=== PATIENT | male | born 1975 | race Caucasian/White ===

== ENCOUNTER 2019-05-08 13:26 | Emergency (ER) | payer SELFPAY ==
[2019-05-08 13:35] VITALS: BP 124/79; PULSE 130; RESP 18; TEMP 37.2; O2SAT 99; BMI 24.1
--- NOTE | 2019-05-08 13:43 | ED_ITS ---
HPI - Abdominal Pain General: Chief Complaint: Abdominal Pain Stated Complaint: Abd pain Time Seen by Provider: 05/08/19 13:35 History of Present Illness: HPI narrative: Patient is a 44-year-old male who comes into the ED with abdominal pain. Patient has a past medical history of hiatal hernia and kidney stones. The abdominal pain started about 2 to 3 days ago. He has not had a bowel movement since May 03. He has bought mdiq-rni-qurjuab magnesium citrate and taken 2 bottles of that and has not had any bowel movements. Currently he feels very full knee and tender in the upper abdomen. Says it is hard for him to eat or drink anything because he does not feel like it goes all the way down. Denies any nausea or vomiting. The abdominal pain does wrap around into the lower to mid back. He also says he has not urinated much in the last couple days as well and his urine is darker and more concentrated. Patient does not take any reflux medication. Associated Symptoms: Reports belching, bloating, change in bowel habits (Has not went since May 03. ) and constipation; Denies chills, diarrhea, dysuria, fever(s), hematochezia, hematuria, nausea and vomiting Review of Systems Const: Denies: fever, chills or fatigue Eyes: Denies: change in vision or eye discomfort ENMT: Denies: throat pain, painful swallowing, nasal discharge or nasal congestion Card: Denies: chest pain, palpitations, edema, swelling of feet/ankles, shortness of breath on exertion or shortness of breath when lying down Resp: Denies: shortness of breath, productive cough or non-productive cough GI: Reports: abdominal pain, constipation, bloating, belching and change in bowel habits (Has not went since May 03. ); Denies: nausea, vomiting, diarrhea or blood in stool : Denies: flank pain, difficulty urinating, painful urination or blood in urine Musc: Denies: neck pain, back pain or extremity swelling Skin/Breast: Denies: rash or new lesion Neuro: Denies: headache, numbness in extremities or weakness in extremities PFS ED PFSH: Social History Smoking and tobacco status: never smoked Physical Exam Const: COMMON NORMALS: oriented x3 HENMT: COMMON NORMALS: normocephalic HEAD & SCALP: normocephalic MOUTH: oral and palatal mucosa normal THROAT: posterior oropharynx normal and uvula midline Neck/C-Spine: COMMON NORMALS: supple GENERAL: Yes normal visual inspection Resp: COMMON NORMALS: normal respiratory effort, no retractions, no use of accessory muscles and clear to auscultation bilaterally AUSCULTATION: clear to auscultation bilaterally Cardio: COMMON NORMALS: regular rate, regular rhythm, S1 normal heart sound, S2 normal heart sound, no gallops, no clicks, no murmurs and peripheral pulses 2+ throughout RATE: regular rate RHYTHM: regular rhythm HEART SOUNDS: S1 normal and S2 normal PERIPHERAL PULSES: pulses 2+ throughout GI: COMMON NORMALS: normal to inspection, nondistended, normoactive bowel sounds, soft to palpation and no masses PALPATION: Yes soft, Yes tender Details: other (throughout abdomen) and Yes guarding PERCUSSION: dullness to percussion (RUQ and LUQ) : COMMON NORMALS: Yes no CVA tenderness BLADDER/KIDNEY EXAM: Yes no CVA tenderness Back/Pelvis: COMMON NORMALS: no CVA tenderness Extremity: COMMON NORMALS: normal to inspection and normal capillary refill Neuro: COMMON NORMALS: oriented x3 GAIT: Yes normal gait Skin: COMMON NORMALS: no rashes or lesions noted GENERAL SKIN EXAM: no rashes or lesions noted and dry skin Course Consultations: Consultation #1: I talked with [facility] hospitalist Dr. Barr about transferring patient to [facility]. The hospitalist agreed and accepted patient and told me that general surgery will be brought into evaluate patient for possible surgery. Hospitalist told me to start patient on IV heparin. Vital Signs: Vital signs: Vital Signs Temperature 98.9 F 05/08/19 13:35 Pulse Rate 62 05/08/19 17:50 Respiratory Rate 17 05/08/19 17:50 Blood Pressure 140/90 05/08/19 17:50 Pulse Oximetry 99 05/08/19 17:50 MDM - Abdominal Pain MDM Narrative: Medical decision making narrative: Patient is a 44-year-old male who comes into the ED with abdominal pain. Physical exam showed a distended and tender abdomen throughout all 4 quadrants. CBC was remarkable for an elevated white blood cell count of 14.3. Patient was also tachycardic at 130 bpm on arrival here into the ED. CT of the abdomen pelvis was performed and it showed acute thrombosis involving the portal vein and superior mesenteric vein and distal mesenteric branches. Early ischemic changes seen. Extensive mesenteric stranding and congestion from the thrombosis and ischemic changes. I discussed this finding with Dr. Barnes and we decided he needs to be transferred to [facility] in [place]. I contacted the transfer center at [facility] and talked with hospitalist who accepted patient. Patient was started on IV heparin. Patient is stable and will be transferred to [facility]. Lab Data: Attestation: I reviewed the patient's lab results. Labs: Lab Results 05/08/19 05/08/19 05/08/19 Range/Units 13:44 13:44 13:44 WBC 14.3 H (4.0-10.0) 10^3/ uL RBC 4.77 (4.1-5.3) 10^6/u L Hgb 13.7 (11.7-16.6) g/dL Hct 42.3 (42.0-52.0) % MCV 88.7 (80-94) fL MCH 28.7 (28.0-34.0) pg MCHC 32.4 (30.0-36.0) g/dL RDW 14.8 (12.1-15.1) % Plt Count 447 H (130-400) 10^3/c mm MPV 10.1 (7.4-10.4) fL Neut % (Auto) 71.3 % Lymph % (Auto) 18.8 % Rosebud % (Auto) 7.6 % Eos % (Auto) 1.5 % Baso % (Auto) 0.2 % Neut # (Auto) 10.2 H (1.8-7.7) 10^3/u L Lymph # (Auto) 2.7 (0.8-4.8) 10^3/u L Rosebud # (Auto) 1.1 H (0.2-0.9) 10^3/u L Eos # (Auto) 0.2 (0.0-0.8) 10^3/u L Baso # (Auto) 0.0 (0.0-0.1) 10^3/u L Nucleated RBC % (a uto) 0 % Nucleated RBCs # 0.0 /100WBC Sodium 135 L (136-145) mmol/L Potassium 3.1 L (3.5-5.1) mmol/L Chloride 100 (98-107) mmol/L Carbon Dioxide 20 L (22-29) mmol/L Anion Gap 18.1 (5-19) BUN 8 (6-20) mg/dL Creatinine 0.9 (0.7-1.2) mg/dL GFR Calculation 92.1 (90-130) mL/min Glucose 127 H (65-115) mg/dL Calculated Osmolal ity 277 L (285-295) mOsm/k g Lactate 1.7 (0.5-2.2) mmol/L Calcium 9.2 (8.5-10.5) mg/dL Total Bilirubin 1.8 H (0.15-1.2) mg/dL AST 35 (0-40) U/L ALT 39 (0-41) U/L Alkaline Phosphata se 114 (40-130) IU/L Total Protein 8.1 (6.6-8.7) g/dL Albumin 3.9 (3.5-5.2) g/dL Globulin 4.2 (1.3-4.6) g/dL Lipase 270 H (13-60) U/L Urine Color (Yellow) Urine Appearance (CLEAR) Urine pH (5-7) Ur Specific Gravit y (1.005-1.030) Urine Protein (Negative) Urine Glucose (UA) (Normal) Urine Ketones (Negative) Urine Blood (Negative) Urine Nitrate (Negative) Urine Bilirubin (NEGATIVE) Urine Urobilinogen (Negative) mg/dL Ur Leukocyte Elizabeth ase (Negative) Urine RBC (0-2) /hpf Urine WBC (0-5) /hpf Ur Squamous Epith Cells (0-5) Urine Bacteria (NONE) 05/08/19 Range/Units 13:49 WBC (4.0-10.0) 10^3/ uL RBC (4.1-5.3) 10^6/u L Hgb (11.7-16.6) g/dL Hct (42.0-52.0) % MCV (80-94) fL MCH (28.0-34.0) pg MCHC (30.0-36.0) g/dL RDW (12.1-15.1) % Plt Count (130-400) 10^3/c mm MPV (7.4-10.4) fL Neut % (Auto) % Lymph % (Auto) % Rosebud % (Auto) % Eos % (Auto) % Baso % (Auto) % Neut # (Auto) (1.8-7.7) 10^3/u L Lymph # (Auto) (0.8-4.8) 10^3/u L Rosebud # (Auto) (0.2-0.9) 10^3/u L Eos # (Auto) (0.0-0.8) 10^3/u L Baso # (Auto) (0.0-0.1) 10^3/u L Nucleated RBC % (a uto) % Nucleated RBCs # /100WBC Sodium (136-145) mmol/L Potassium (3.5-5.1) mmol/L Chloride (98-107) mmol/L Carbon Dioxide (22-29) mmol/L Anion Gap (5-19) BUN (6-20) mg/dL Creatinine (0.7-1.2) mg/dL GFR Calculation (90-130) mL/min Glucose (65-115) mg/dL Calculated Osmolal ity (285-295) mOsm/k g Lactate (0.5-2.2) mmol/L Calcium (8.5-10.5) mg/dL Total Bilirubin (0.15-1.2) mg/dL AST (0-40) U/L ALT (0-41) U/L Alkaline Phosphata se (40-130) IU/L Total Protein (6.6-8.7) g/dL Albumin (3.5-5.2) g/dL Globulin (1.3-4.6) g/dL Lipase (13-60) U/L Urine Color Claire (Yellow) Urine Appearance Clear (CLEAR) Urine pH 5 (5-7) Ur Specific Gravit y 1.010 (1.005-1.030) Urine Protein 1+ H (Negative) Urine Glucose (UA) Norm (Normal) Urine Ketones 1+ H (Negative) Urine Blood Trace H (Negative) Urine Nitrate Positive H (Negative) Urine Bilirubin 1+ H (NEGATIVE) Urine Urobilinogen 1 H (Negative) mg/dL Ur Leukocyte Elizabeth ase Negative (Negative) Urine RBC 0-4 H (0-2) /hpf Urine WBC 5-10 H (0-5) /hpf Ur Squamous Epith Cells 5-10 H (0-5) Urine Bacteria 1+ H (NONE) Imaging Data ^: CT Abd/Pel: Attestation: I personally reviewed and interpreted this imaging study as follows: Radiologist's impression: [facility] [address] [address] [address] Scan Report Signed Patient: Devaughn Elkins Unit #: [id number] : 1975 Age/Sex: 44 / M ADM Date: 05/08/19 Loc: ER Room/Bed: Attending Dr: Ordering Provider/Ordering MD: Silvano Balderas Date of Service: 05/08/19 Procedure(s): CT abdomen pelvis w con* [id number] Accession Number(s): [id number] Report Number: [id number] WS: [id number] CT ABDOMEN AND PELVIS WITH CONTRAST HISTORY: Diffuse abdominal pain for 3 days. Radiating to the RIGHT flank. TECHNIQUE: Imaging performed of the abdomen and pelvis with IV contrast. Single phase imaging of the abdomen. Coronal and sagittal reformats are submitted. All CT scans at [facility] use at least one of these dose optimization techniques: automated exposure control; mA and/or kV adjustment per patient size (includes targeted exams where dose is matched to clinical indication); or iterative reconstruction. IV CONTRAST: Omnipaque 300; 95 mL IV. Oral contrast: No DLP: 960.54 mGy.cm COMPARISON: None available. Lower thorax: Lung bases are clear. Partial atelectasis along the inferior LEFT major fissure. Heart is normal size. Small hiatal hernia. Liver/biliary system: Diffuse hepatic steatosis with liver being top normal size. No mass or bile duct dilatation. There is increased soft tissue in the portal vein which extends to the superior mesenteric vein. Gallbladder: Normal. No gallstones or wall thickening. No pericholecystic fluid. Pancreas: Normal. Spleen: Normal. Adrenal glands: Normal. Right kidney: Normal. Left kidney: Cortical cyst measuring 1.5 cm mid pole. There is a smaller low- attenuation nodule in the mid kidney which is too small to characterize. Aorta: Normal. Lymphadenopathy: None. Free fluid: There is mesenteric edema and stranding beginning at the level of the pancreas and extending inferiorly surrounding the superior mesenteric artery and vein. Small amount of fluid along the anterior pararenal fascia. GI tract: No evidence for appendicitis. There is extensive diverticulitis in the descending and sigmoid colon. Normal appendix. There is mild thickening of the small bowel loops, greatest in the LEFT abdomen. Prominent vasa recta. No perforation at this time. Abdominal wall: Unremarkable abdominal wall. No hernia. Pelvis: Normal. Bones: Unremarkable. Notified ELIZABETH Samuels at 05/08/2019 3:[address]/CT abdomen pelvis w con* [id number] IMPRESSION: 1. Acute thrombosis involving the portal vein, superior mesenteric vein and distal mesenteric branches. Early ischemic changes in the LEFT small bowel. No perforation. 2. Extensive mesenteric stranding and congestion from the thrombosis and ischemic changes. 3. Hepatic steatosis. 4. Distal colonic diverticulosis. No acute diverticulitis. Dictated By: Elisa Pastrana DO Signed By: Elisa Pastrana DO Signed Date/Time: 1506 DD/ 1441 Discharge Plan Discharge Patient Disposition: Xfer Other Clinical Impression: Portal vein thrombosis, Superior mesenteric vein thrombosis, Small bowel ischemia Condition: Stable Referrals: Silvano Alas DO [Family Provider] - Discharge Date/Time: 05/08/19 18:18 Coding Level of Care Code ED Staff Writer for Chg Fwd Exam Comprehensive
[2019-05-08 13:56] LABS: Basophils % 0.2 %; Eosinophils # 0.2 10^3/uL (0.0-0.8); Eosinophils % 1.5 %; Hematocrit 42.3 % (42.0-52.0); Hemoglobin 13.7 g/dL (11.7-16.6); Lymphocytes # 2.7 10^3/uL (0.8-4.8); Lymphocytes % 18.8 %; Mean Corpuscular HGB Conc 32.4 g/dL (30.0-36.0); Mean Corpuscular Hemoglobin 28.7 pg (28.0-34.0); Mean Corpuscular Volume 88.7 fL (80-94); Mean Platelet Volume 10.1 fL (7.4-10.4); Monocytes # 1.1 10^3/uL (0.2-0.9); Monocytes % 7.6 %; Neutrophils # 10.2 10^3/uL (1.8-7.7); Neutrophils % 71.3 %; Nucleated Red Blood Cells % 0 %; Platelet Count 447 10^3/cmm (130-400); Red Blood Count 4.77 10^6/uL (4.1-5.3); Red Cell Distribution Width 14.8 % (12.1-15.1); White Blood Count 14.3 10^3/uL (4.0-10.0)
--- NOTE | 2019-05-08 14:00 | CT_ITS ---
WS: [id number] CT ABDOMEN AND PELVIS WITH CONTRAST HISTORY: Diffuse abdominal pain for 3 days. Radiating to the RIGHT flank. TECHNIQUE: Imaging performed of the abdomen and pelvis with IV contrast. Single phase imaging of the abdomen. Coronal and sagittal reformats are submitted. All CT scans at [facility] use at least one of these dose optimization techniques: automated exposure control; mA and/or kV adjustment per patient size (includes targeted exams where dose is matched to clinical indication); or iterativ e reconstruction. IV CONTRAST: Omnipaque 300; 95 mL IV. Oral contrast: No DLP: 960.54 mGy.cm COMPARISON: None available. Lower thorax: Lung bases are clear. Partial atelectasis along the inferior LEFT major fissure. Heart is normal size. Small hiatal hernia. Liver/biliary system: Diffuse hepatic steatosis with liver being top normal size. No mass or bile hari t dilatation. There is increased soft tissue in the portal vein which extends to the superior mesente lucas vein. Gallbladder: Normal. No gallstones or wall thickening. No pericholecystic fluid. Pancreas: Normal. Spleen: Normal. Adrenal glands: Normal. Right kidney: Normal. Left kidney: Cortical cyst measuring 1.5 cm mid pole. There is a smaller low-attenuation nodule in th e mid kidney which is too small to characterize. Aorta: Normal. Lymphadenopathy: None. Free fluid: There is mesenteric edema and stranding beginning at the level of the pancreas and extend ing inferiorly surrounding the superior mesenteric artery and vein. Small amount of fluid along the a nterior pararenal fascia. GI tract: No evidence for appendicitis. There is extensive diverticulitis in the descending and sigmo id colon. Normal appendix. There is mild thickening of the small bowel loops, greatest in the LEFT ab domen. Prominent vasa recta. No perforation at this time. Abdominal wall: Unremarkable abdominal wall. No hernia. Pelvis: Normal. Bones: Unremarkable. Notified ELIZABETH Samuels at 05/08/2019 3:[address]/CT abdomen pelvis w con* [id number] IMPRESSION: 1. Acute thrombosis involving the portal vein, superior mesenteric vein and di stal mesenteric branches. Early ischemic changes in the LEFT small bowel. No pe rforation. 2. Extensive mesenteric stranding and congestion from the thrombosis and ische jameel changes. 3. Hepatic steatosis. 4. Distal colonic diverticulosis. No acute diverticulitis.
[2019-05-08 14:14] LABS: Alanine Aminotransferase 39 U/L (0-41); Albumin Level 3.9 g/dL (3.5-5.2); Alkaline Phosphatase 114 IU/L (40-130); Anion Gap 18.1 (5-19); Aspartate Amino Transferase 35 U/L (0-40); Blood Urea Nitrogen 8 mg/dL (6-20); Calcium 9.2 mg/dL (8.5-10.5); Carbon Dioxide 20 mmol/L (22-29); Chloride 100 mmol/L (98-107); Globulin 4.2 g/dL (1.3-4.6); Glomerular Filtration Rate 92.1 mL/min (90-130); Glucose 127 mg/dL (65-115); Lipase 270 U/L (13-60); Osmolality Calculated 277 mOsm/kg (285-295); Potassium 3.1 mmol/L (3.5-5.1); Sodium 135 mmol/L (136-145); Total Bilirubin 1.8 mg/dL (0.15-1.2); Total Protein 8.1 g/dL (6.6-8.7)
[2019-05-08 14:17] LABS: Urine Appearance Clear (CLEAR); Urine Color Amber (Yellow); pH Urine 5 (5-7)
[2019-05-08 14:18] LABS: Bilirubin Urine 1+ (NEGATIVE); Blood Urine Trace (Negative); Glucose Urine UA Norm (Normal); Ketones Urine 1+ (Negative); Leukocyte Esterase Urine Negative (Negative); Nitrate Urine Positive (Negative); Protein Urine 1+ (Negative); Urobilinogen Urine 1 mg/dL (Negative)
[2019-05-08 14:19] LABS: Add Urine Culture? Yes; Bacteria Urine 1+; RBC Urine 0-4 /hpf (0-2)
[2019-05-08 14:26] VITALS: RESP 17; O2SAT 97
[2019-05-08] MEDS: morphine 4 mg/mL SDV 1 mL IVP ×2 (14:26→16:15)
[2019-05-08] MEDS: ondansetron 2 mg/ML SDV 2 mL 4 MG IVP (14:26)
[2019-05-08] MEDS: iohexol 300 mg/mL 100 mL Btl IV (14:32)
[2019-05-08] MEDS: sodium chloride 0.9% 1,000 ML 999 ML IV (15:12)
[2019-05-08 15:26] LABS: Lactate (Lactic Acid level) 1.7 mmol/L (0.5-2.2)
[2019-05-08] MEDS: heparin 5,000 unit/mL INJ 1 mL 5000 UNIT IV (15:44)
[2019-05-08 16:15] VITALS: RESP 17; O2SAT 99
[2019-05-08] MEDS: heparin drip 25,000 UNIT/500 ML PREMIX 23.2 UNIT IV (16:15)
[2019-05-08 17:38] VITALS: RESP 18; O2SAT 98
[2019-05-08] MEDS: HYDROmorphone 1 mg/mL INJ 1 mL IVP (17:38)
[2019-05-08 17:50] VITALS: BP 140/90; PULSE 62; RESP 17; O2SAT 99
== END 2019-05-08 18:18 | disposition other institution (70) ==
PROVIDERS: Emergency Medicine; Emergency Provider Physician Assistant
DX: I81 Portal vein thrombosis (principal); K55.069 Acute infarction of intestine, part and extent unspecified; K55.9 Vascular disorder of intestine, unspecified
CPT/HCPCS: 12345; 36415; 74177; 80053; 81001; 83605; 83690; 85025; 87086; 96365; 96366; 96374; 96375; 96376; 99282; 99285; J1170; J1644; J2270; J2405; J7030; Q9967

== ENCOUNTER 2019-06-04 14:31 | Outpatient (CLI) | payer SELFPAY ==
--- NOTE | 2019-06-04 19:31 | ONC CON_ITS ---
Dr. Gonzales New Patient Note Patient: Devaughn Elkins Unit #: [id number]: 1975 Dicatated By: Evert Gonzales M.D.Date of Visit: Jun 04, 2019 Onc MED New Patient/Consult Referring Physician: Melinda Aparicio Chief Complaint: Portal vein thrombosis. History of Present Illness: This is a 44 year-old man with portal vein thrombosis. On 05/08/2019 he presented to the emergency room with abdominal pain. The ER record indicates it had started 2 to 3 days earlier, but he says now that he had been having it for several months. However, it had gotten significantly worse. He also had developed nausea/vomiting and constipation, and he says that he was urinating blood. His CT abdomen/pelvis showed findings consistent with acute thrombosis involving the portal vein, superior mesenteric vein, and distal mesenteric branches. There were early ischemic changes noted in the left small bowel. There was extensive stranding and congestion from the thrombus and ischemic changes. There is also evidence of hepatic steatosis. His laboratory studies showed mildly elevated total bilirubin but normal liver enzymes. The lipase was also mildly elevated. His CBC did show mild leukocytosis, white blood cell count 14,300, and mild thrombocytosis, platelet count 447,000. Hemoglobin was normal at 13.7 g with hematocrit 42.3%. He was transferred to [facility] for admission. He indicates that his MRI done there showed spots in his gallbladder and pancreas. He was initially anticoagulated with IV heparin and then transition to Lovenox and subsequently to a apixaban. At this point he continues to have some abdominal pain, though not as severe. He says he is able to eat now. His weight has remained stable. He does have fatigue, but he is able to do light work. His ECOG score is 1. He has not had fever. He has been having some night sweating for the past 2 to 3 months. He has shortness of breath, and he has cough productive of yellow to green sputum. He has a little bit of chest pain. He has nausea, which comes and goes. He has been having some acid reflux symptoms for years. His bowel function is variable. His stools fluctuate between solid, formed stools and watery stools. He has noted some white mucus on his stool. He still has some pain in the epigastric area and in the right lower quadrant area. He has no complaints with bladder function. He also still has pain across his lower back. He has occasional migraines. He has some orthostatic lightheadedness. During the past week he has noticed that he has no feeling in his right leg. He has no difficulty ambulating, though. He has no other focal neurologic symptoms. Past Medical History: His medical history includes hiatal hernia, nephrolithiasis, and peptic ulcer disease. Past Surgical History: His surgical/procedural history is limited to an EGD at age 15. Medications: Acetaminophen 1 Tablet (of 500 mg) Oral PRN, Eliquis 1 Tablet (of 5 mg) Oral b.i.d. Allergies: Social History: Mr. Elkins is . 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 He began chewing twist tobacco at age 7 and then switched to regular chewing tobacco at age 15. He chews a can per day. He does not smoke. He had heavy alcohol use for a period of 4 to 5 years, beginning at age 19. He then cut down. Recurrently drinks 1/2 pint of whiskey per weekend. Family History: Mr. Elkins's father at age 78: Colon cancer. Mr. Elkins has 1 brother who is alive: pancreas cancer. His mother is still living and in good health. Father of colon cancer at age 78. A maternal aunt had gallbladder cancer, had his maternal grandmother had breast cancer. His paternal grandmother had diabetes. He thinks his brother has been diagnosed with pancreatic cancer, but that appears to be unlikely. Review Of Symptoms: Constitutional - His energy level is low. He does some light work in and around the house. His appetite is poor and weight is stable. No fever or chills. He has night sweats. 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 He has some visual blurring, ENMT - He has some hearing loss. No tinnitus. He has sinus drainage. No mouth sores. No sore throat or difficulty swallowing, Hematologic/Lymphatic - No abnormal bruising or bleeding, Respiratory - No shortness of breath. He has a cough that produces yellowish phlegm. No pleuritic pain or hemoptysis, Cardiovascular - No angina pain. No palpitations, Gastrointestinal - No nausea or vomiting. He has heartburn. His bowels are irregular, and he reports having a white mucus with bowel movements. No blood in the stool or black stools. He is pain in the epigastric area and in the lower abdomen, Genitourinary (M) - No dysuria or hematuria. No urinary frequency. No urgency or incontinence, Musculoskeletal - He has pain across his lower back, Integumentary - No skin complications, Neurologic - He has headaches. He gets some dizziness with positional changes. He has numbness in his right lower leg, Psychiatric - No anxiety or depression. He has insomnia. Vital Signs: Performed on Jun 04, 2019 14:49: 0, 28.17, 2.12 sq.m, 71.00 in, 99 %, 113 /min (HIGH), 22 /min, 118/84 mm(hg), 98.4 F, and 202.0 lbs (HIGH). Physical Examination: Constitutional - He does not appear acutely ill, Eyes - Sclerae nonicteric. Conjunctivae clear, ENMT - No lesions noted in the oral cavity, Neck - No mass or thyromegaly, Hematologic/Lymphatic - No cervical, clavicular, or axillary adenopathy, Respiratory - Lungs are clear with good air movement bilaterally, Cardiovascular - Heart rhythm is regular with a mild tachycardia. There is no murmur, gallop, or rub noted, Abdomen - Mildly distended and firm. Liver is not enlarged or tender. Spleen is not palpable. There is no abdominal mass noted and there is no obvious ascites. There is no inguinal adenopathy, Back/Spine - No spine or CVA tenderness noted, Extremities - No edema. Pedal pulses are palpable bilaterally, Integumentary - No rashes. No suspicious skin lesions noted, Neurologic - No focal neurologic deficits noted. Impression: 1. Patient with acute portal vein thrombosis. The underlying cause has not been determined. His CT reported evidence of hepatic steatosis, but no other abnormal findings in the liver. His evaluation for hypercoagulability was reportedly unrevealing. 2. He is on anticoagulation with apixaban. His other medical illnesses include: 3. Hiatal hernia and history of peptic ulcer disease. 4. History of nephrolithiasis. Plan: He will continue anticoagulation with apixaban. At some point he will require additional evaluation to rule out underlying malignancy or other underlying liver disease. Other underlying conditions to consider would be PNH or a myeloproliferative disorder, though either would be unlikely. I will first obtain the records from [facility] and then determine what further evaluation is appropriate. In the meantime, he is advised to avoid any further alcohol intake. Signed By: Evert Gonzales M.D. <<Signature on File>>
== END 2019-06-04 14:32 | disposition home or self-care (01) ==
PROVIDERS: Referring Provider Nurse Practitioner Family; Visit Provider Internal Medicine Medical Oncology
DX: I81 Portal vein thrombosis (principal); K76.0 Fatty (change of) liver, not elsewhere classified; K44.9 Diaphragmatic hernia without obstruction or gangrene; F17.220 Nicotine dependence, chewing tobacco, uncomplicated; Z79.01 Long term (current) use of anticoagulants; Z87.11 Personal history of peptic ulcer disease; Z87.442 Personal history of urinary calculi; Z72.89 Other problems related to lifestyle
CPT/HCPCS: 99205

== ENCOUNTER 2019-06-11 19:35 | Emergency (ER) | payer SELFPAY ==
[2019-06-11 19:43] VITALS: BP 127/87; PULSE 118; RESP 18; TEMP 35.8; O2SAT 98; BMI 26.7
[2019-06-11 20:41] LABS: Basophils % 0.4 %; Eosinophils # 0.3 10^3/uL (0.0-0.8); Eosinophils % 4.7 %; Hematocrit 41.6 % (42.0-52.0); Hemoglobin 13.3 g/dL (11.7-16.6); Lymphocytes # 2.8 10^3/uL (0.8-4.8); Mean Corpuscular Volume 90.8 fL (80-94); Mean Platelet Volume 9.6 fL (7.4-10.4); Monocytes # 0.7 10^3/uL (0.2-0.9); Monocytes % 10.3 %; Neutrophils # 3.3 10^3/uL (1.8-7.7); Neutrophils % 45.5 %; Nucleated Red Blood Cells % 0 %; Platelet Count 352 10^3/cmm (130-400); Red Blood Count 4.58 10^6/uL (4.1-5.3); Red Cell Distribution Width 15.7 % (12.1-15.1); White Blood Count 7.2 10^3/uL (4.0-10.0)
[2019-06-11 20:57] LABS: Alanine Aminotransferase 77 U/L (0-41); Albumin Level 4.3 g/dL (3.5-5.2); Alkaline Phosphatase 112 IU/L (40-130); Anion Gap 17.4 (5-19); Aspartate Amino Transferase 65 U/L (0-40); Blood Urea Nitrogen 7 mg/dL (6-20); Calcium 8.9 mg/dL (8.5-10.5); Carbon Dioxide 23 mmol/L (22-29); Chloride 105 mmol/L (98-107); Globulin 3.3 g/dL (1.3-4.6); Glomerular Filtration Rate 73.1 mL/min (90-130); Glucose 109 mg/dL (65-115); Lipase 220 U/L (13-60); Magnesium 2.2 mg/dL (1.7-2.3); Osmolality Calculated 290 mOsm/kg (285-295); Potassium 3.4 mmol/L (3.5-5.1); Sodium 142 mmol/L (136-145); Total Bilirubin 0.6 mg/dL (0.15-1.2); Total Protein 7.6 g/dL (6.6-8.7)
--- NOTE | 2019-06-11 21:03 | CTR_ITS ---
PROCEDURE INFORMATION: Exam: CT Abdomen And Pelvis With Contrast Exam date and time: 06/11/2019 9:49 PM Age: 44 years old Clinical indication: Constipation; Abdominal pain; Additional info: Abd pain. Recent portal vein thrombosis TECHNIQUE: Imaging protocol: Computed tomography of the abdomen and pelvis with intravenous contrast. Radiation optimization: All CT scans at this facility use at least one of these dose optimization techniques: automated exposure control; mA and/or kV adjustment per patient size (includes targeted exams where dose is matched to clinical indication); or iterative reconstruction. Contrast material: OMNI 300; Contrast volume: 95 ml; Contrast route: IV; COMPARISON: CT abdomen pelvis w con* [id number] 05/26/2019 1:05 AM RADIATION DOSE METRICS: Total DLP: 923.98 mGy-cm FINDINGS: Lungs: There is subpleural atelectasis of the dependent portions of the lungs. Mediastinum: A small hiatal hernia is present. Liver: There is a diffuse decrease in hepatic parenchymal density, consistent with fatty infiltration. Gallbladder and bile ducts: Normal. No calcified stones. No ductal dilation. Pancreas: Pancreas is unchanged in appearance. There is improved mild haziness of the fat adjacent to the pancreas . Spleen: Normal. No splenomegaly. Adrenals: Normal. No mass. Kidneys and ureters: There are multiple renal hypodensities that cannot be further characterized on the current examination. There is no evidence of hydronephrosis. There is punctate nephrolithiasis. There is a unchanged 1.4 cm simple cyst in the left kidney. Stomach and bowel: The loops of small bowel have an appropriate appearance. Ascending and transverse colon have an appropriate appearance. Extensive diverticulosis is present in the distal colon. There is wall thickening with haziness of the fat involving the sigmoid colon compatible with mildly improved distal diverticulitis/colitis. Appendix: A normal appendix is identified. Intraperitoneal space: Unremarkable. No free air. No significant fluid collection. Vasculature: There is thrombus in the portal vein and superior mesenteric vein which is decreased in size and length compared to the prior study. No new thrombosis. The splenic vein is widely patent. This may reflect resolving reactive edema and venous congestion from the portal vein thrombosis or improving pancreatitis. Lymph nodes: There is mild induration of the mesenteric fat with a few subcentimeter lymph nodes which has improved slightly compared to the prior exam. Bladder: The bladder wall appears mildly thickened however the bladder is also almost completely collapsed in the appearance is compatible with lack distension. Reproductive: Unremarkable as visualized. Bones/joints: Unremarkable. No acute fracture. Soft tissues: There is a small fat filled left inguinal hernia. There is a fat-containing umbilical hernia. Other findings: No ileus or obstruction. CT/CT abdomen pelvis w con* [id number] IMPRESSION: 1. Continued but improving portal vein thrombosis and improving edema of the mesentery. 2. There is a unchanged 1.4 cm simple cyst in the left kidney. 3. There is improved mild haziness of the fat adjacent to the pancreas . This may reflect resolving reactive edema and venous congestion from the portal vein thrombosis or improving pancreatitis. 4. There is wall thickening of the sigmoid colon with haziness of the adjacent fat compatible with mild colitis/diverticulitis slightly improved compared to the prior exam. Radiation Dose CTDIVOL = (mGy): DLP = 923.98 (mGy-cm)
[2019-06-11] MEDS: ondansetron 2 mg/ML SDV 2 mL 4 MG IVP (21:29)
[2019-06-11 21:30] VITALS: RESP 16
[2019-06-11] MEDS: morphine 4 mg/mL SDV 1 mL 10 MG IVP (21:30)
[2019-06-11] MEDS: iohexol 300 mg/mL 100 mL Btl IV (22:17)
[2019-06-11 22:25] LABS: Bilirubin Urine Neg (NEGATIVE); Blood Urine Neg (Negative); Glucose Urine UA Norm (Normal); Ketones Urine Negative (Negative); Leukocyte Esterase Urine Negative (Negative); Nitrate Urine Negative (Negative); Protein Urine Neg (Negative); Specific Gravity, Urine 1.015 (1.005-1.030); Urine Appearance Clear (CLEAR); Urine Color Yellow (Yellow); Urobilinogen Urine Norm (Negative); pH Urine 6 (5-7)
[2019-06-11 22:26] LABS: Bacteria Urine TRACE; RBC Urine RARE /hpf (0-2); Squamous Epithelial Cell Urine RARE (0-5); WBC Urine RARE /hpf (0-5)
[2019-06-11 23:09] VITALS: RESP 16; O2SAT 96
[2019-06-11] MEDS: HYDROmorphone 1 mg/mL INJ 1 mL IVP (23:09)
--- NOTE | 2019-06-11 23:49 | W.ED.GENADLT ---
HPI - General Adult General: Chief complaint: General Medical Stated complaint: upper abd pain, lower back pain, r side pain Time Seen by Provider: 06/11/19 20:38 Source: patient Mode of arrival: ambulatory Limitations: no limitations History of Present Illness: HPI narrative: This 44-year-old gentleman was recently diagnosed with portal vein thrombosis and a new malignancy. He is currently being worked up for the malignancy and is scheduled to see the oncologist in a few days. Since his diagnosis he has had epigastric abdominal pain radiating to his back and he said that tonight it is worsening. No nausea vomiting. No diarrhea. No fever. He would like some pain medication. Associated symptoms: Reports chest pain; Deny dyspnea, headache(s), rash or palpitations Review of Systems General: Reports: 10 or more systems reviewed and unremarkable except in HPI and below Const: Denies: fever, chills or body aches Eyes: Denies: change in vision or blurry vision ENMT: Denies: throat pain, enlarged tonsils, painful swallowing, hoarseness, mouth pain or swelling of lips/tongue Card: Reports: chest pain; Denies: palpitations, irregular heart rhythm, edema or swelling of feet/ankles Resp: Denies: shortness of breath, productive cough or non-productive cough GI: Reports: abdominal pain : Denies: flank pain, painful urination, urinary frequency, urinary urgency or urinary hesitancy Musc: Denies: neck pain, back pain or extremity swelling Skin/Breast: Denies: rash, itching or redness Neuro: Denies: headache, numbness in extremities or weakness in extremities Endo: Denies: excessive urination, excessive thirst or tired all the time PFS ED PFSH: Social History Smoking and tobacco status: never smoked Physical Exam Const: COMMON NORMALS: no apparent distress, average body habitus, oriented x3, no limitations, healthy appearing, alert and well nourished HENMT: COMMON NORMALS: normocephalic, head/scalp atraumatic and moist oral mucous membranes HEAD & SCALP: normocephalic and atraumatic Eye: COMMON NORMALS: PERRL, EOMs intact bilaterally, conjunctivae normal and no scleral icterus CONJUNCTIVA: Yes conjunctivae normal PUPIL: Yes PERRL Neck/C-Spine: COMMON NORMALS: full ROM, supple, no meningeal signs, no JVD and no carotid bruits Chest: COMMONS NORMALS: inspection of chest normal and palpation of chest normal Resp: COMMON NORMALS: normal respiratory effort, no retractions, no use of accessory muscles, clear to auscultation bilaterally and percussion normal AUSCULTATION: clear to auscultation bilaterally PERCUSSION: percussion normal Cardio: COMMON NORMALS: no JVD, regular rate, regular rhythm, S1 normal heart sound, S2 normal heart sound, no gallops, no clicks, no murmurs, no rub and peripheral pulses 2+ throughout RATE: regular rate RHYTHM: regular rhythm HEART SOUNDS: S1 normal and S2 normal PERIPHERAL PULSES: pulses 2+ throughout GI: COMMON NORMALS: normal to inspection, nondistended, normoactive bowel sounds, soft to palpation, non-tender, no hepatosplenomegaly, no masses and no bruits PALPATION: Yes soft, Yes tender (epigastric), No guarding, No rigid and Yes no hepatosplenomegaly : COMMON NORMALS: Yes no CVA tenderness BLADDER/KIDNEY EXAM: Yes no CVA tenderness Back/Pelvis: COMMON NORMALS: no CVA tenderness Extremity: COMMON NORMALS: normal to inspection, full ROM, normal capillary refill, no calf tenderness and no pedal edema Neuro: COMMON NORMALS: oriented x3 SENSORIUM/ORIENTATION: Yes alert MENINGEAL SIGNS: Yes no meningeal signs Skin: COMMON NORMALS: no rashes or lesions noted, no wounds, skin turgor normal, no jaundice, no petechiae and no mottling GENERAL SKIN EXAM: no rashes or lesions noted and turgor normal Course Reevaluation(s): Reevaluation #1: Pain is much improved and he says he is ready to be discharged home. We will discharge him home with a prescription of oral narcotics. He voiced understanding and he is in agreement with the plan. Time: 23:49 Vital Signs: Vital signs: Vital Signs Temperature 96.4 F L 06/11/19 19:43 Pulse Rate 118 H 06/11/19 19:43 Respiratory Rate 16 06/11/19 23:09 Blood Pressure 127/87 06/11/19 19:43 Pulse Oximetry 96 06/11/19 23:09 MDM - General Adult MDM Narrative: Medical decision making narrative: Patient with abdominal pain secondary to portal vein thrombosis. He was recently diagnosed with the same and is on apixaban anticoagulation. CT scan done today shows improvement of his portal vein thrombosis and other intra-abdominal findings. Since his CT scan findings are improving, along with no significant changes on his lab work he is discharged home as his pain was controlled with intravenous narcotic medications. He has no pain medicine at home and so a prescription for oral hydrocodone was done for the patient. He will follow-up with his primary care provider and the oncologist. Medical Records: Attestation: I reviewed the patient's medical records. Lab Data: Labs: Lab Results 06/11/19 06/11/19 06/11/19 Range/Units 20:32 20:32 22:10 WBC 7.2 (4.0-10.0) 10^3/ uL RBC 4.58 (4.1-5.3) 10^6/u L Hgb 13.3 (11.7-16.6) g/dL Hct 41.6 L (42.0-52.0) % MCV 90.8 (80-94) fL MCH 29.0 (28.0-34.0) pg MCHC 32.0 (30.0-36.0) g/dL RDW 15.7 H (12.1-15.1) % Plt Count 352 (130-400) 10^3/c mm MPV 9.6 (7.4-10.4) fL Neut % (Auto) 45.5 % Lymph % (Auto) 39.0 % Winkler % (Auto) 10.3 % Eos % (Auto) 4.7 % Baso % (Auto) 0.4 % Neut # (Auto) 3.3 (1.8-7.7) 10^3/u L Lymph # (Auto) 2.8 (0.8-4.8) 10^3/u L Winkler # (Auto) 0.7 (0.2-0.9) 10^3/u L Eos # (Auto) 0.3 (0.0-0.8) 10^3/u L Baso # (Auto) 0.0 (0.0-0.1) 10^3/u L Nucleated RBC % (a uto) 0 % Nucleated RBCs # 0.0 /100WBC Sodium 142 (136-145) mmol/L Potassium 3.4 L (3.5-5.1) mmol/L Chloride 105 (98-107) mmol/L Carbon Dioxide 23 (22-29) mmol/L Anion Gap 17.4 (5-19) BUN 7 (6-20) mg/dL Creatinine 1.1 (0.7-1.2) mg/dL GFR Calculation 73.1 L (90-130) mL/min Glucose 109 (65-115) mg/dL Calculated Osmolal ity 290 (285-295) mOsm/k g Calcium 8.9 (8.5-10.5) mg/dL Magnesium 2.2 (1.7-2.3) mg/dL Total Bilirubin 0.6 (0.15-1.2) mg/dL AST 65 H (0-40) U/L ALT 77 H (0-41) U/L Alkaline Phosphata se 112 (40-130) IU/L Total Protein 7.6 (6.6-8.7) g/dL Albumin 4.3 (3.5-5.2) g/dL Globulin 3.3 (1.3-4.6) g/dL Lipase 220 H (13-60) U/L Urine Color Yellow (Yellow) Urine Appearance Clear (CLEAR) Urine pH 6 (5-7) Ur Specific Gravit y 1.015 (1.005-1.030) Urine Protein Neg (Negative) Urine Glucose (UA) Norm (Normal) Urine Ketones Negative (Negative) Urine Blood Neg (Negative) Urine Nitrate Negative (Negative) Urine Bilirubin Neg (NEGATIVE) Urine Urobilinogen Norm (Negative) mg/dL Ur Leukocyte Elizabeth ase Negative (Negative) Urine RBC Rare (0-2) /hpf Urine WBC Rare (0-5) /hpf Ur Squamous Epith Cells Rare (0-5) Urine Bacteria Trace (NONE) Imaging Data^: CT Abd/Pel: Radiologist's impression: [address] [address] [address] Scan Report Signed Patient: Devaughn Elkins #: [id number] : 1975Acct#:[id number] Age/Sex: 44 / MADM Date: 06/11/19 Loc: ERRoom/Bed: Attending Dr: Ordering Provider/Ordering MD: Contreras Mcpherson MD, [facility] [place] Date of Service: 06/11/19 Procedure(s): CT abdomen pelvis w con* [id number] Accession Number(s): [id number] Report Number: [id number] PROCEDURE INFORMATION: Exam: CT Abdomen And Pelvis With Contrast Exam date and time: 06/11/2019 9:49 PM Age: 44 years old Clinical indication: Constipation; Abdominal pain; Additional info: Abd pain. Recent portal vein thrombosis TECHNIQUE: Imaging protocol: Computed tomography of the abdomen and pelvis with intravenous contrast. Radiation optimization: All CT scans at this facility use at least one of these dose optimization techniques: automated exposure control; mA and/or kV adjustment per patient size (includes targeted exams where dose is matched to clinical indication); or iterative reconstruction. Contrast material: OMNI 300; Contrast volume: 95 ml; Contrast route: IV; COMPARISON: CT abdomen pelvis w con* [id number] 05/26/2019 1:05 AM RADIATION DOSE METRICS: Total DLP: 923.98 mGy-cm FINDINGS: Lungs: There is subpleural atelectasis of the dependent portions of the lungs. Mediastinum: A small hiatal hernia is present. Liver: There is a diffuse decrease in hepatic parenchymal density, consistent with fatty infiltration. Gallbladder and bile ducts: Normal. No calcified stones. No ductal dilation. Pancreas: Pancreas is unchanged in appearance. There is improved mild haziness of the fat adjacent to the pancreas . Spleen: Normal. No splenomegaly. Adrenals: Normal. No mass. Kidneys and ureters: There are multiple renal hypodensities that cannot be further characterized on the current examination. There is no evidence of hydronephrosis. There is punctate nephrolithiasis. There is a unchanged 1.4 cm simple cyst in the left kidney. Stomach and bowel: The loops of small bowel have an appropriate appearance. Ascending and transverse colon have an appropriate appearance. Extensive diverticulosis is present in the distal colon. There is wall thickening with haziness of the fat involving the sigmoid colon compatible with mildly improved distal diverticulitis/colitis. Appendix: A normal appendix is identified. Intraperitoneal space: Unremarkable. No free air. No significant fluid collection. Vasculature: There is thrombus in the portal vein and superior mesenteric vein which is decreased in size and length compared to the prior study. No new thrombosis. The splenic vein is widely patent. This may reflect resolving reactive edema and venous congestion from the portal vein thrombosis or improving pancreatitis. Lymph nodes: There is mild induration of the mesenteric fat with a few subcentimeter lymph nodes which has improved slightly compared to the prior exam. Bladder: The bladder wall appears mildly thickened however the bladder is also almost completely collapsed in the appearance is compatible with lack distension. Reproductive: Unremarkable as visualized. Bones/joints: Unremarkable. No acute fracture. Soft tissues: There is a small fat filled left inguinal hernia. There is a fat-containing umbilical hernia. Other findings: No ileus or obstruction. CT/CT abdomen pelvis w con* [id number] IMPRESSION: 1. Continued but improving portal vein thrombosis and improving edema of the mesentery. 2. There is a unchanged 1.4 cm simple cyst in the left kidney. 3. There is improved mild haziness of the fat adjacent to the pancreas . This may reflect resolving reactive edema and venous congestion from the portal vein thrombosis or improving pancreatitis. 4. There is wall thickening of the sigmoid colon with haziness of the adjacent fat compatible with mild colitis/diverticulitis slightly improved compared to the prior exam. Radiation Dose CTDIVOL = (mGy): DLP = 923.98 (mGy-cm) Dictated By:Charu Foster Signed By:Mani Foster Date/Time:06/11/192238 DD/ 36 Discharge Plan Discharge Patient Disposition: Home, Self-Care Clinical Impression: Portal vein thrombosis Acute pancreatitis Qualifiers: Pancreatitis type: unspecified pancreatitis type Acute pancreatitis complication: no infection or necrosis Qualified Code(s): K85.90 - Acute pancreatitis without necrosis or infection, unspecified Condition: Stable Prescriptions: New oxycodone 5 mg tablet 5 mg PO Q4H PRN (Reason: pain, portal vein thrombosis, intra-abdominal malignancy) Qty: 20 RF: 0 Continued Eliquis 5 mg Tablet 5 mg PO BID RF: 0 Discharge Orders: Discharge Order (Routine); Ordered 06/11/19 Ordered By: Contreras Mcpherson Referrals: Sandra Lentz MD [Primary Care Provider] - 1-3 days Silvano Alas DO [Family Provider] - 4-7 days Patient Instructions: Pancreatitis (ED) Activity Restrictions/Additional Instructions: Return for any new or worsening symptoms. Continue to take your blood thinner as prescribed. Take the pain medication as needed every 4 hours. Follow-up with your primary care provider as soon as you can get in. Coding Level of Care Code ED Medical Laboratory Technologist for Kerwin Walls
[2019-06-12 00:04] VITALS: BP 115/82; PULSE 116; RESP 16; O2SAT 97
--- NOTE | 2019-06-12 00:09 | PC.NURSE ---
i agree with this assessment by Jass Reavesedic
== END 2019-06-12 00:09 | disposition home or self-care (01) ==
PROVIDERS: Emergency Medicine; Emergency Provider Family Medicine; PCP Family Medicine
DX: I81 Portal vein thrombosis (principal); K85.90 Acute pancreatitis without necrosis or infection, unspecified; Z79.01 Long term (current) use of anticoagulants
CPT/HCPCS: 12345; 74177; 80053; 81001; 83690; 83735; 85025; 96374; 96375; 99281; 99283; J1170; J2270; J2405; Q9967

== ENCOUNTER 2019-06-25 15:28 | Emergency (ER) | payer SELFPAY ==
[2019-06-25 15:35] VITALS: BP 166/96; PULSE 114; RESP 18; O2SAT 96; BMI 26.6
[2019-06-25] MEDS: diphenhydrAMINE 50 mg/mL SDV 1mL 25 MG IVP (15:50)
[2019-06-25 15:51] VITALS: PULSE 97; RESP 17; O2SAT 99
[2019-06-25 16:19] VITALS: BP 139/66; PULSE 88; RESP 16; O2SAT 94
--- NOTE | 2019-06-25 16:23 | ED_ITS ---
HPI - Allergic Reaction General: Chief complaint: Allergic Reaction Stated complaint: Poss allergic reaction Time Seen by Provider: 06/25/19 15:35 History of Present Illness: HPI narrative: Patient is a 44 year old male presenting after being stung 3 or 4 times but hornets. This happened at home about an hour ago and he says that he has had allergic reactions to yellow jackets in the past when he was stung 60 times. He also is allergic to cillins. He feels like it is hard to breath and he says that his told him he passed out three times while sitting on the couch at home and that he turned very red in the face. He took 25 mg f oral benadryl at home before coming in. He is currently being treated for multiple blood clots and is being worked up for cancer in his gallbladder and pancreas. He is on a blood thinner and creon. complaint: allergic reaction Onset (ago): hour(s) (1) Associated symptoms: Reports difficulty breathing, dizziness and nausea; Deny lip swelling Severity: moderate Treatment prior to arrival: benadryl Review of Systems General: Reports: 10 or more systems reviewed and unremarkable except in HPI and below Const: Denies: fever(s) or chills Card: Denies: chest pain Resp: Reports: dyspnea; Denies: wheezing GI: Reports: nausea Neuro: Reports: dizziness Arnav/Lymph: Denies: easy bruising or easy bleeding PFS ED PFSH: Social History Smoking and tobacco status: never smoked Physical Exam Const: COMMON NORMALS: no acute distress, average body habitus, patient oriented x3, no limitations, healthy appearing, alert and well nourished HENMT: COMMON NORMALS: normocephalic HEAD & SCALP: normocephalic HEAD IMAGES: 1. mild redness - patient indicates this is an area where he was stung FACE & SINUS: normal facial exam Eye: COMMON NORMALS: Equal, round and reactive pupils present and EOMs intact bilaterally GENERAL EYE: appearance normal, both eyes and all related structures PUPIL: Yes Equal, round and reactive pupils present Neck/C-Spine: COMMON NORMALS: no JVD Chest: COMMONS NORMALS: normal inspection of the chest Resp: COMMON NORMALS: normal respiratory effort, No use of accessory muscles and clear to auscultation bilaterally EFFORT & INSPECTION: Yes able to speak in complete sentences AUSCULTATION: clear to auscultation bilaterally Cardio: COMMON NORMALS: no JVD, regular rate, regular rhythm and No murmurs present (Cardio) RATE: regular rate RHYTHM: regular rhythm GI: COMMON NORMALS: Normal to inspection, nondistended, normoactive bowel sounds present and Soft to palpation PALPATION: Yes Soft to palpation Back/Pelvis: BACK IMAGE (MALE): 1. three stings in this area, mild redness Extremity: COMMON NORMALS: normal to inspection Neuro: COMMON NORMALS: patient oriented x3 SENSORIUM/ORIENTATION: Yes alert Course Reevaluation(s): Reevaluation #1: Patient still in no distress - resting quietly. No trouble breathing. No complaints. Pepcid infusing. Time: 16:29 Reevaluation #2: Patient with complete resolution of symptoms. He is safe to go home and will return if any recurrence. He will continue Benadryl and Pepcid for a few days. Time: 17:59 Vital Signs: Vital signs: Vital Signs Pulse Rate 96 06/25/19 16:47 Respiratory Rate 18 06/25/19 16:47 Blood Pressure 139/66 06/25/19 16:19 Pulse Oximetry 100 06/25/19 16:47 Discharge Plan Discharge Patient Disposition: Home, Self-Care Clinical Impression: Allergic reaction Qualifiers: Encounter type: initial encounter Qualified Code(s): T78.40XA - Allergy, unspecified, initial encounter Insect sting allergy, current reaction Qualifiers: Encounter type: initial encounter Injury intent: accidental or unintentional Qualified Code(s): T63.481A - Toxic effect of venom of other arthropod, accidental (unintentional), initial encounter Condition: Stable Prescriptions: No Action Zofran 4 mg Tablet 4 mg PO TID PRN (Reason: NAUSEA/VOMITING) RF: 0 Creon 12,000-38,000 -60,000 unit Capsule,Delayed Release(Dr/Ec) 1 cap PO TID RF: 0 Eliquis 5 mg Tablet 5 mg PO BID RF: 0 Discharge Orders: Discharge Order (Routine); Ordered 06/25/19 Ordered By: Carlita Hernández Referrals: Sandra Lentz MD [Primary Care Provider] - Discharge Diet: Usual diet Discharge Activity: Resume usual activity Patient Instructions: Allergic Reaction Activity Restrictions/Additional Instructions: Take benadryl 50 mg every 6 hours and pepcid 20 mg every 12 hours for a few days to prevent return of allergic symptoms. Return to the ED if difficulty breathing, passing out or any other new or concerning symptoms. Coding Level of Care Code ED Civil Celebrant for Kerwin Fwd Exam Comprehensive
[2019-06-25 16:47] VITALS: PULSE 96; RESP 18; O2SAT 100
[2019-06-25 18:27] VITALS: BP 160/80; PULSE 96; RESP 18; O2SAT 98
== END 2019-06-25 18:29 | disposition home or self-care (01) ==
PROVIDERS: Emergency Provider Emergency Medicine; PCP Family Medicine
DX: T63.481A Toxic effect of venom of other arthropod, accidental (unintentional), initial encounter (principal)
CPT/HCPCS: 12345; 96374; 96375; 99282; 99283; J1200; J2930; J3490

== ENCOUNTER 2019-06-28 02:02 | Inpatient (IN) | payer SELFPAY ==
[2019-06-28] VITALS (16 sets, daily range): BP systolic 120–138; BP diastolic 64–95; PULSE 72–117; RESP 16–22; TEMP 36.3–37.4; O2SAT 94–100; BMI 26.6
--- NOTE | 2019-06-28 02:17 | CTR_ITS ---
PROCEDURE INFORMATION: Exam: CT Abdomen And Pelvis With Contrast Exam date and time: 06/28/2019 2:18 AM Age: 44 years old Clinical indication: Abdominal pain; Generalized; Patient HX: HX pancreatic CA; Additional info: Abd pain TECHNIQUE: Imaging protocol: Computed tomography of the abdomen and pelvis with intravenous contrast. Radiation optimization: All CT scans at this facility use at least one of these dose optimization techniques: automated exposure control; mA and/or kV adjustment per patient size (includes targeted exams where dose is matched to clinical indication); or iterative reconstruction. Contrast material: OMNI 300; Contrast volume: 95 ml; Contrast route: 20G; COMPARISON: CT abdomen pelvis w con* [id number] 06/11/2019 10:16 PM RADIATION DOSE METRICS: Total DLP: 912.18 mGy-cm FINDINGS: Lungs: There is subsegmental atelectasis in the lung bases. Mediastinum: There is mild thickening of the distal esophageal wall. There is a small sliding-type hiatal hernia. Liver: There is diffuse low-attenuation of the liver relative to the spleen consistent with fatty infiltration. Gallbladder and bile ducts: The gallbladder is normal. There is no biliary dilation. Pancreas: There is moderate pancreatic and peripancreatic edema. There is a small volume of unencapsulated free fluid near the pancreatic tail layering along the anterior margin of Gerota's fascia. There is no pancreatic or peripancreatic fluid collection. There is no hemorrhage or evidence of necrosis. Spleen: The spleen is unremarkable. Adrenals: The adrenal glands are unremarkable. Kidneys and ureters: There is a nonobstructive stone in the right kidney. No hydronephrosis on the right. Normal right ureter. There is a 15 mm simple cyst in the left kidney. There is no hydronephrosis or stones on the left. The left ureter is normal. Stomach and bowel: The stomach is unremarkable. The small bowel is nondilated. There is no sign of inflammation. There is mild diverticulosis of the distal descending and sigmoid colon. There is no sign of diverticulitis. Appendix: The appendix is normal. Intraperitoneal space: There is no free air or significant intraperitoneal free fluid. There is decreased distal mesenteric edema since 06/11/2019. 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 There is a small amount of thrombus which extends from the superior mesenteric vein into the portal vein. The volume of thrombus in the portal vein is decreased since 06/11/2019. The portal vein is largely patent. The splenic vein is patent. The abdominal aorta is normal. There is no aneurysm or dissection. Lymph nodes: Unremarkable. No enlarged lymph nodes. Bladder: The urinary bladder is unremarkable. Reproductive: The prostate and seminal vesicles are unremarkable. Bones/joints: Bones are unremarkable. Soft tissues: The abdominal wall is intact. CT/CT abdomen pelvis w con* [id number] IMPRESSION: 1. Acute interstitial edematous pancreatitis, new since 06/11/2019. There is no hemorrhage, necrosis, or fluid collection. 2. 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 3. Incidental findings above. COMMENTS: Consistent with the [employer]'s Incidental Findings Committee white paper (J Am Blanca Radiol 2018): Any incidental renal lesion less than 1.0 cm or classified as too small to characterize, or any incidental cystic renal lesion characterized as simple-appearing, is likely benign. No follow-up imaging is recommended for these lesions per consensus recommendations based on imaging criteria. Radiation Dose CTDIVOL = (mGy): DLP = 912.18 (mGy-cm)
--- NOTE | 2019-06-28 02:24 | W.ED.ABDPA2 ---
HPI - Abdominal Pain General: Chief Complaint: Abdominal Pain Stated Complaint: abd/back pain Time Seen by Provider: 06/28/19 02:24 History of Present Illness: Associated Symptoms: Denies chills, constipation, diarrhea, dysuria, fever(s), hematochezia, hematuria, nausea and vomiting Review of Systems Const: Denies: fever(s), chills or fatigue Eyes: Denies: change in vision or eye discomfort ENMT: Denies: throat pain, odynophagia, nasal discharge or nasal congestion Card: Denies: chest pain, palpitations, edema, swelling of feet/ankles, dyspnea on exertion or orthopnea Resp: Denies: dyspnea, productive cough or non-productive cough GI: Denies: abdominal pain, nausea, vomiting, diarrhea, constipation or hematochezia : Denies: flank pain, difficulty urinating, dysuria or hematuria Musc: Denies: neck pain, back pain or extremity swelling Skin/Breast: Denies: rash or new lesions Neuro: Denies: headache(s), numbness in extremities or weakness in extremities PFSH ED PFSH: Social History Smoking and tobacco status: never smoked Physical Exam Const: COMMON NORMALS: patient oriented x3 HENMT: COMMON NORMALS: normocephalic HEAD & SCALP: normocephalic MOUTH: Normal oral and palatal mucosa present THROAT: posterior oropharynx normal and uvula midline Neck/C-Spine: COMMON NORMALS: supple GENERAL: Yes normal visual inspection Resp: COMMON NORMALS: normal respiratory effort, No retractions, No use of accessory muscles and clear to auscultation bilaterally AUSCULTATION: clear to auscultation bilaterally Cardio: COMMON NORMALS: regular rate, regular rhythm, S1 normal heart sound present, S2 normal heart sound present, No gallops present (Cardio), No clicks present (Cardio), No murmurs present (Cardio) and Peripheral pulses 2+ throughout RATE: regular rate RHYTHM: regular rhythm HEART SOUNDS: S1 normal heart sound present and S2 normal heart sound present PERIPHERAL PULSES: Peripheral pulses 2+ throughout GI: COMMON NORMALS: Normal to inspection, nondistended, normoactive bowel sounds present, Soft to palpation, non-tender and no masses PALPATION: Yes Soft to palpation : COMMON NORMALS: Yes no CVA tenderness BLADDER/KIDNEY EXAM: Yes no CVA tenderness Back/Pelvis: COMMON NORMALS: no CVA tenderness Neuro: COMMON NORMALS: patient oriented x3 GAIT: Yes Normal gait present Course Vital Signs: Vital signs: Vital Signs Temperature 97.3 F L 06/28/19 02:09 Pulse Rate 73 06/28/19 02:09 Respiratory Rate 18 06/28/19 02:09 Blood Pressure 134/85 06/28/19 02:09 Pulse Oximetry 100 06/28/19 02:09 Discharge Plan Discharge Prescriptions: No Action Eliquis 5 mg Tablet 5 mg PO BID RF: 0 Coding Level of Care Code ED 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
--- NOTE | 2019-06-28 02:27 | ED_ITS ---
HPI - Abdominal Pain General: Chief Complaint: Abdominal Pain Stated Complaint: abd/back pain Time Seen by Provider: 06/28/19 02:24 Source: patient Mode of arrival: ambulatory Limitations: no limitations History of Present Illness: HPI narrative: 44-year-old male who has a history of pancreatitis and portal vein thrombosis with chronic abdominal pain. He states he started having abdominal pain again today the severe nature. He has had nausea as well. He states the pain is a 10 out of 10. He is currently on Eliquis for the portal vein thrombosis. He denies any worsening or improving factors. MD elicited complaint: abdominal pain Onset (ago): hour(s) Pain Consistency: constant Quality: sharp Radiation: none Exacerbating factors: nothing Relieving factors: nothing Associated Symptoms: Reports nausea and vomiting; Denies chills, dysuria and fever(s) Review of Systems Const: Denies: fever(s), chills, body aches or change in appetite Eyes: Denies: blurry vision or eye discomfort ENMT: Denies: throat pain or dental pain Card: Denies: chest pain Resp: Denies: dyspnea GI: Reports: abdominal pain, nausea and vomiting : Denies: dysuria Musc: Denies: neck pain or back pain Skin/Breast: Denies: rash Neuro: Denies: headache(s) Psych: Denies: depression Arnav/Lymph: Denies: easy bruising All/Imm: Denies: urticaria PFSH ED PFSH: Social History Smoking and tobacco status: never smoked Physical Exam Const: COMMON NORMALS: no acute distress, patient oriented x3 and healthy appearing HENMT: COMMON NORMALS: normocephalic and atraumatic HEAD & SCALP: normocephalic and atraumatic Eye: COMMON NORMALS: Equal, round and reactive pupils present and EOMs intact bilaterally PUPIL: Yes Equal, round and reactive pupils present Neck/C-Spine: COMMON NORMALS: full ROM and supple Chest: COMMONS NORMALS: normal inspection of the chest and normal palpation of entire chest wall Resp: COMMON NORMALS: normal respiratory effort, No retractions, No use of accessory muscles and clear to auscultation bilaterally AUSCULTATION: clear to auscultation bilaterally Cardio: COMMON NORMALS: regular rate, regular rhythm and No murmurs present (Cardio) RATE: regular rate RHYTHM: regular rhythm GI: COMMON NORMALS: Normal to inspection, nondistended, normoactive bowel sounds present, Soft to palpation and no masses PALPATION: Yes Soft to palpation OTHER: diffuse tenderness Extremity: COMMON NORMALS: normal to inspection and full ROM Neuro: COMMON NORMALS: patient oriented x3, moves all extremities and no focal motor deficits Psych: COMMON NORMALS: mental status grossly normal, Normal thought process present and cooperative THOUGHT PROCESS: Normal thought process present Skin: COMMON NORMALS: no rashes or lesions noted and no wounds GENERAL SKIN EXAM: no rashes or lesions noted Course Vital Signs: Vital signs: Vital Signs Temperature 97.3 F L 06/28/19 02:09 Pulse Rate 78 06/28/19 03:14 Respiratory Rate 18 06/28/19 03:14 Blood Pressure 132/81 06/28/19 03:14 Pulse Oximetry 95 06/28/19 03:14 MDM - Abdominal Pain MDM Narrative: Medical decision making narrative: Patient presents with abdominal pain was found to have pancreatitis. Patient pain is improved here. I spoke to hospitalist Dr. Crystal and will admit for pain control and hydration. Patient's vital signs have been normal here. Lab Data: Labs: Lab Results 06/28/19 06/28/19 Range/Units 02:18 02:18 WBC 17.2 H (4.0-10.0) 10^3/ uL RBC 4.92 (4.1-5.3) 10^6/u L Hgb 14.0 (11.7-16.6) g/dL Hct 42.6 (42.0-52.0) % MCV 86.6 (80-94) fL MCH 28.5 (28.0-34.0) pg MCHC 32.9 (30.0-36.0) g/dL RDW 15.4 H (12.1-15.1) % Plt Count 483 H (130-400) 10^3/c mm MPV 9.3 (7.4-10.4) fL Neut % (Auto) 70.6 % Lymph % (Auto) 19.1 % [place] % (Auto) 8.7 % Eos % (Auto) 0.9 % Baso % (Auto) 0.2 % Neut # (Auto) 12.2 H (1.8-7.7) 10^3/u L Lymph # (Auto) 3.3 (0.8-4.8) 10^3/u L [place] # (Auto) 1.5 H (0.2-0.9) 10^3/u L Eos # (Auto) 0.2 (0.0-0.8) 10^3/u L Baso # (Auto) 0.0 (0.0-0.1) 10^3/u L Nucleated RBC % (a uto) 0 % Nucleated RBCs # 0.0 /100WBC Sodium 138 (136-145) mmol/L Potassium 3.0 L (3.5-5.1) mmol/L Chloride 102 (98-107) mmol/L Carbon Dioxide 18 L (22-29) mmol/L Anion Gap 21.0 H (5-19) BUN 12 (6-20) mg/dL Creatinine 0.9 (0.7-1.2) mg/dL GFR Calculation 92.1 (90-130) mL/min Glucose 174 H (65-115) mg/dL Calculated Osmolal ity 286 (285-295) mOsm/k g Calcium 9.1 (8.5-10.5) mg/dL Total Bilirubin 2.0 H (0.15-1.2) mg/dL AST 44 H (0-40) U/L ALT 52 H (0-41) U/L Alkaline Phosphata se 108 (40-130) IU/L Total Protein 7.3 (6.6-8.7) g/dL Albumin 4.3 (3.5-5.2) g/dL Globulin 3.0 (1.3-4.6) g/dL Imaging Data ^: CT Abd/Pel: Attestation: I personally reviewed and interpreted this imaging study as follows: Radiologist's impression: [address] [address] [address] Scan Report Signed Patient: Devaughn Elkins Unit #: [id number] : 1975 Age/Sex: 44 / M ADM Date: 06/28/19 Loc: ER Room/Bed: Attending Dr: Ordering Provider/Ordering MD: Yobany Barnes MD Date of Service: 06/28/19 Procedure(s): CT abdomen pelvis w con* [id number] Accession Number(s): [id number] Report Number: [id number] PROCEDURE INFORMATION: Exam: CT Abdomen And Pelvis With Contrast Exam date and time: 06/28/2019 2:18 AM Age: 44 years old Clinical indication: Abdominal pain; Generalized; Patient HX: HX pancreatic CA; Additional info: Abd pain TECHNIQUE: Imaging protocol: Computed tomography of the abdomen and pelvis with intravenous contrast. Radiation optimization: All CT scans at this facility use at least one of these dose optimization techniques: automated exposure control; mA and/or kV adjustment per patient size (includes targeted exams where dose is matched to clinical indication); or iterative reconstruction. Contrast material: OMNI 300; Contrast volume: 95 ml; Contrast route: 20G; COMPARISON: CT abdomen pelvis w con* [id number] 06/11/2019 10:16 PM RADIATION DOSE METRICS: Total DLP: 912.18 mGy-cm FINDINGS: Lungs: There is subsegmental atelectasis in the lung bases. Mediastinum: There is mild thickening of the distal esophageal wall. There is a small sliding-type hiatal hernia. Liver: There is diffuse low-attenuation of the liver relative to the spleen consistent with fatty infiltration. Gallbladder and bile ducts: The gallbladder is normal. There is no biliary dilation. Pancreas: There is moderate pancreatic and peripancreatic edema. There is a small volume of unencapsulated free fluid near the pancreatic tail layering along the anterior margin of Gerota's fascia. There is no pancreatic or peripancreatic fluid collection. There is no hemorrhage or evidence of necrosis. Spleen: The spleen is unremarkable. Adrenals: The adrenal glands are unremarkable. Kidneys and ureters: There is a nonobstructive stone in the right kidney. No hydronephrosis on the right. Normal right ureter. There is a 15 mm simple cyst in the left kidney. There is no hydronephrosis or stones on the left. The left ureter is normal. Stomach and bowel: The stomach is unremarkable. The small bowel is nondilated. There is no sign of inflammation. There is mild diverticulosis of the distal descending and sigmoid colon. There is no sign of diverticulitis. Appendix: The appendix is normal. Intraperitoneal space: There is no free air or significant intraperitoneal free fluid. There is decreased distal mesenteric edema since 06/11/2019. 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 There is a small amount of thrombus which extends from the superior mesenteric vein into the portal vein. The volume of thrombus in the portal vein is decreased since 06/11/2019. The portal vein is largely patent. The splenic vein is patent. The abdominal aorta is normal. There is no aneurysm or dissection. Lymph nodes: Unremarkable. No enlarged lymph nodes. Bladder: The urinary bladder is unremarkable. Reproductive: The prostate and seminal vesicles are unremarkable. Bones/joints: Bones are unremarkable. Soft tissues: The abdominal wall is intact. CT/CT abdomen pelvis w con* [id number] IMPRESSION: 1. Acute interstitial edematous pancreatitis, new since 06/11/2019. There is no hemorrhage, necrosis, or fluid collection. 2. 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 3. Incidental findings above. 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
[2019-06-28 02:33] LABS: Basophils % 0.2 %; Eosinophils # 0.2 10^3/uL (0.0-0.8); Eosinophils % 0.9 %; Hematocrit 42.6 % (42.0-52.0); Lymphocytes # 3.3 10^3/uL (0.8-4.8); Lymphocytes % 19.1 %; Mean Corpuscular HGB Conc 32.9 g/dL (30.0-36.0); Mean Corpuscular Hemoglobin 28.5 pg (28.0-34.0); Mean Corpuscular Volume 86.6 fL (80-94); Mean Platelet Volume 9.3 fL (7.4-10.4); Monocytes # 1.5 10^3/uL (0.2-0.9); Monocytes % 8.7 %; Neutrophils # 12.2 10^3/uL (1.8-7.7); Neutrophils % 70.6 %; Nucleated Red Blood Cells % 0 %; Platelet Count 483 10^3/cmm (130-400); Red Blood Count 4.92 10^6/uL (4.1-5.3); Red Cell Distribution Width 15.4 % (12.1-15.1); White Blood Count 17.2 10^3/uL (4.0-10.0)
[2019-06-28] MEDS: metoclopramide 5 mg/mL SDV 2 mL 10 MG IVP (02:35)
[2019-06-28] MEDS: morphine 4 mg/mL SDV 1 mL IVP (02:35)
[2019-06-28] MEDS: diphenhydrAMINE 50 mg/mL SDV 1mL IVP (02:35)
[2019-06-28] MEDS: ondansetron 2 mg/ML SDV 2 mL 4 MG IVP ×2 (02:36→19:07)
[2019-06-28 02:50] LABS: Alanine Aminotransferase 52 U/L (0-41); Albumin Level 4.3 g/dL (3.5-5.2); Alkaline Phosphatase 108 IU/L (40-130); Aspartate Amino Transferase 44 U/L (0-40); Blood Urea Nitrogen 12 mg/dL (6-20); Calcium 9.1 mg/dL (8.5-10.5); Carbon Dioxide 18 mmol/L (22-29); Chloride 102 mmol/L (98-107); Glomerular Filtration Rate 92.1 mL/min (90-130); Glucose 174 mg/dL (65-115); Osmolality Calculated 286 mOsm/kg (285-295); Sodium 138 mmol/L (136-145); Total Protein 7.3 g/dL (6.6-8.7)
[2019-06-28] MEDS: iohexol 300 mg/mL 100 mL Btl IV (02:53)
[2019-06-28] MEDS: HYDROmorphone 1 mg/mL INJ 1 mL IVP (03:12)
[2019-06-28 04:00] LABS: Lipase 4328 U/L (13-60)
[2019-06-28] MEDS: HYDROmorphone 1 mg/mL INJ 1 mL 0.5 MG IVP ×4 (06:19→23:36)
--- NOTE | 2019-06-28 06:19 | PM.HP ---
Providers/Chief Complaint Admitting Physician: Emerald Jones MD Primary Care Provider: Sandra Lentz MD Chief Complaint: abd/back pain History of Present Illness Devaughn Elkins is a 44 year old male with past medical history of nephrolithiasis and peptic ulcer disease, recently diagnosed to have portal vein, SMV and distal mesenteric branch thrombosis on May 08, 2019 after presenting to the ER with abdominal pain for which she is following with morphine. He had elevated bili and normal liver enzymes at the time. Lipase was also mildly elevated. He was transferred to [facility] in [place] for admission where an MRI was performed, however he is unaware of the results of the study. He received anticoagulation with heparin and was eventually transitioned to Eliquis which she is continuing to take at this present time. He has continued to have intermittent abdominal pain since that time though the intensity had been improving. He presents back to the ER today complaining of worsened abdominal pain over the last 24 hours. He describes it as chiefly being located in the epigastric region with radiation in a bandlike fashion to his back. He has also had a few episodes of vomiting, however was able to tolerate p.o. intake through the day. Denies any complaints of diarrhea. Denies any complaints of fever. He had presented to the ER with similar complaints on June 11, 2019, however at that time his CT was reassuring a.m. proving. Diagnostics in the ER today are revealing of a leukocytosis of 17., Hypokalemia with potassium of 3, lipase of 4300, markedly increased over his previous 1. AST and ALT are elevated at 44 and 52 however improved over June 10. CT of the abdomen pelvis performed today shows acute interstitial edematous pancreatitis which is new when compared to June 10. There is no mention of hemorrhage necrosis or fluid collection. SMV thrombosis is unchanged and a decreased clot burden is noted in portal vein and there is decreased distal mesenteric edema as well. Liver shows fatty infiltration. Gallbladder is normal without any signs of biliary dilatation. Review of Systems General: Reports: 10 or more systems reviewed and unremarkable except in HPI and below Const: Denies: fever(s), chills or body aches Eyes: Denies: change in vision, blurry vision or photophobia ENMT: Denies: throat pain, enlarged tonsils, odynophagia or nasal congestion Card: Denies: chest pain, palpitations, irregular heart rhythm, edema, swelling of feet/ankles, lightheadedness, pre-syncope, dyspnea on exertion or orthopnea Resp: Denies: dyspnea, productive cough, non-productive cough, wheezing, stridor, pain on inspiration, change in phlegm color, hemoptysis or chest congestion GI: Denies: abdominal pain, nausea, vomiting, hematemesis, coffee ground emesis, dysphagia, heartburn, diarrhea, constipation, GI cramping, change in stool character, hematochezia or melena : Denies: flank pain, dysuria, urinary frequency, urinary urgency, urinary hesitancy or hematuria Musc: Denies: neck pain, back pain, extremity pain, joint swelling, joint warmth or deformity Neuro: Denies: headache(s), numbness in extremities, weakness in extremities, sensory changes, difficulty walking, frequent falls, dizziness, vertigo, behavioral changes, Slurred speech present or seizure-like activity Psych: Denies: anxiety, depression, suicidal ideation or homicidal ideation Endo: Denies: polyuria, polydipsia, tired all the time, cold intolerance or hot flashes Arnav/Lymph: Denies: easy bruising or easy bleeding Medications/Allergies Home Medications Medication Instructions Recorded Confirmed Last Taken Type Eliquis 5 mg PO BID 06/11/19 06/28/19 06/27/19 History Allergies Allergy/AdvReac Type Severity Reaction Status Date / Time Penicillins Allergy Unknown Verified 06/11/19 19:46 PFSH Acute PFSH: Medical History (Updated 06/28/19 @ 06:31 by Emerald Jones MD) Portal vein thrombosis Superior mesenteric vein thrombosis Social History (Updated 06/28/19 @ 06:29 by Emerald Jones MD) Smoking and tobacco status: never smoked Alcohol intake: current Vitals/I&O/Wt Last Vital Signs Temp 98.3 F 06/28/19 05:30 Pulse 94 06/28/19 05:30 Resp 20 H 06/28/19 05:30 BP 125/76 06/28/19 05:30 Pulse Ox 98 06/28/19 05:30 06/27/19 06/27/19 06/28/19 14:59 22:59 06:59 Output Total 200 / 200 Balance -200 / -200 Weight last 48 hrs Weight 91.626 kg Physical Exam Narrative: EXAM NARRATIVE: GEN: Awake, alert and oriented, no acute distress CVS: S1S2 N RS: CTA B/L Abd: Soft, non distended, TTP + over entire abdomen, more over epigastric region EMERGENCY ROOM PHYSICIAN ASSISTANT: no focal neuro deficits Data : 06/28/19 02:18 06/28/19 02:18 A&P Assessment and plan (1) Superior mesenteric vein thrombosis: Status: Acute (2) Portal vein thrombosis: Status: Acute (3) Pancreatitis: Status: Acute Qualifiers: Acute pancreatitis complication: unspecified Chronicity: acute Pancreatitis type: unspecified pancreatitis type Qualified Code(s): K85.90 - Acute pancreatitis without necrosis or infection, unspecified (4) Hypokalemia: Status: Acute Additional A&P Information Admit to med/surg 1. Acute pancreatitis : IVF NS @ 150 cc/hr pain control with dilaudid + toradol Unclear precipitant cause, check TG level , alcohol level Clear liquid diet No current signs of sepsis, monitor closely 2. portal vein and mesenteric thrombosis of unclear etiology- being followed as an outpatient Recent w/up at [facility], will request records Continue eliquis 3. Hypokalemia : replete with 40meq Iv Dvt ppx: lovenox Full code Attestations Medical Necessity Statement*: anticipate > 2midnight admission for pancreatitis management , IV hydration Coding Level of Care Code Acute Blueprint Clerk for Chg Fwd Diagnoses Superior mesenteric vein thrombosis K55.069 Portal vein thrombosis I81 Pancreatitis K85.90 Acute pancreatitis complication: unspecified Chronicity: acute Pancreatitis type: unspecified pancreatitis type Hypokalemia E87.6
[2019-06-28] MEDS: potassium chloride premix 40 MEQ/100 ML PREMIX 25 MEQ IV (07:43)
[2019-06-28] MEDS: sodium chlor 0.9% + KCl 20 mEq 20 MEQ/1,000 ML BAG 150 MEQ IV ×3 (07:45→21:21)
[2019-06-28] MEDS: apixaban 5 mg Tablet PO ×2 (08:27→17:26)
[2019-06-28 08:29] LABS: Chol HDL Ratio 6.29 mg/dL (1.0-5.00); Cholesterol 176 mg/dL (0-200); HDL Cholesterol 28 mg/dL (60-100); LDL Cholesterol Calculated 114 mg/dL (50-129); LDL HDL Ratio 4.07 RATIO (0.00-3.22); Triglycerides 170 mg/dL (0-150)
[2019-06-28 08:30] LABS: Alcohol Level < 10 mg/dL (0-10)
[2019-06-28 08:42] LABS: Estmated Average Glucose 137; Hemoglobin A1C 6.4 % (4.0-6.0)
[2019-06-28 08:57] LABS: Lactic Sepsis W/Reflex 1.2 mmol/L (0.5-2.2)
[2019-06-28] MEDS: ketorolac 30 mg/mL INJ IVP (09:00)
--- NOTE | 2019-06-28 10:06 | PC.CHAP ---
Pastoral Care Encounter/Spiritual Assessment Type of Contact [] Declined integrity manager visit [] Patient/Family/Request visit [] Outpatient visit [] Follow-up visit [] Physician referral [] Code/Alert [x] Routine visit [] Staff referral [] Actively dying [] Patient sleeping [] Family support [] [] Out of room [] Palliative care [] [] Receiving care in room [] Pre-surgical visit [] Trauma [] Long length of stay [] ICU visit [] Other: Relational/Emotional Strength [] Patient feels connected with others/family/visitors/staff [] Distress [] Loneliness/isolation [] Abandonment Spirituality of Patient [] Person of Diana [] Attends Samaritan of their Diana [] Believes in Prayer [] Reads Bible or Jew materials [] There are Spiritual issues to be addressed Allopathic Doctor Interventions [x] Prayer [] Active listening [] Non-anxious presence [] Spiritual/emotional support [] Crisis/trauma care [] Spiritual counseling [] Bereavement support [] Provided bereavement packet [] Provided Bible/devotional materials [] Provided toy/stuffed animal, coloring book to patient or family member [] Provided Communion [] Anointing/[place] [] Salvation [x] Completed spiritual assessment [] Other: Impact on Illness or Injury [] Angry [] Fearful [] Anxious [] Often cries [] Exhaustion [] Unable to work [] Unable to attend rastafarian [] Unable to walk/stand [] Unable to read [] Unable to drive [] Unable to eat/drink [] Unable to sleep [] Unable to be with family [] Patient intubated [] Other: Summary Patient working through pain. Resting Time spent with patient 10 min
--- NOTE | 2019-06-28 14:18 | PM.PN ---
Subjective Subjective: Interval history: Chart and medical records received from [facility] in [place] reviewed. VSS, afebrile. Resting in bed, not overtly uncomfortable but verbalizes continued lower abdominal discomfort and some radiation to the back. Tolerating CLD without difficulty. No BM. Medications: Reviewed: Yes Medication Review Details: Active Medications Generic Name Dose Route Start Last Admin Trade Name Freq PRN Reason Stop Dose Admin Apixaban 5 mg 06/28/19 09:00 06/28/19 08:27 Eliquis PO 5 mg BID ELLIOTT Administration Hydromorphone HCl 0.5 mg 06/28/19 05:33 06/28/19 12:32 Dilaudid Inj IVP 0.5 mg Q4H PRN Administration PAIN Potassium Chloride /Sodium Chloride 20 meq in 1,000 m ls @ 150 mls/hr 06/28/19 06:45 06/28/19 12:27 Sodium Chlor 0.9 % + Kcl 20 Meq IV 150 mls/hr .Q6H40M ELLIOTT Administration Ketorolac Trometha mine 30 mg 06/28/19 06:44 06/28/19 09:00 Toradol IVP 07/03/19 06:43 30 mg Q8H PRN Administration MODERATE PAIN Ondansetron HCl 4 mg 06/28/19 06:45 Zofran IVP Q8H PRN vomiting, or N/V if npo Penicillins Allergy (Verified 06/11/19 19:46) Unknown Vitals/I&O/Wt Last Vital Signs Temp 98.4 F 06/28/19 11:33 Pulse 99 06/28/19 11:33 Resp 18 06/28/19 12:32 BP 131/74 06/28/19 11:33 Pulse Ox 96 06/28/19 11:33 06/27/19 06/28/19 06/28/19 22:59 06:59 14:59 Intake Total 1185 / 1185 Output Total 200 / 200 Balance -200 / -200 1185 / 1185 Weight last 48 hrs Weight 91.626 kg Physical Exam Const: COMMON NORMALS: no acute distress and patient oriented x3 GENERAL APPEARANCE: cooperative and comfortable NUTRITIONAL APPEARANCE: obese centrally obese ORIENTATION/CONSCIOUSNESS: Yes awake HENMT: COMMON NORMALS: normocephalic, atraumatic, hearing grossly normal bilaterally and moist oral mucous membranes HEAD & SCALP: normocephalic and atraumatic TEETH & GINGIVA: Yes poor dentition Eye: COMMON NORMALS: Equal, round and reactive pupils present, EOMs intact bilaterally and conjunctivae normal CONJUNCTIVA: Yes conjunctivae normal PUPIL: Yes Equal, round and reactive pupils present Neck/C-Spine: COMMON NORMALS: full ROM GENERAL: Yes normal visual inspection and Yes trachea midline Resp: COMMON NORMALS: normal respiratory effort, No retractions, No use of accessory muscles and clear to auscultation bilaterally EFFORT & INSPECTION: Yes able to speak in complete sentences, Yes symmetric chest movement and No tachypneic AUSCULTATION: clear to auscultation bilaterally Cardio: COMMON NORMALS: regular rate, regular rhythm, S1 normal heart sound present, S2 normal heart sound present and No murmurs present (Cardio) RATE: regular rate RHYTHM: regular rhythm HEART SOUNDS: S1 normal heart sound present and S2 normal heart sound present GI: COMMON NORMALS: Normal to inspection, nondistended, normoactive bowel sounds present, Soft to palpation and non-tender INSPECTION: Yes central obesity PALPATION: Yes Soft to palpation and Yes Tenderness to palpation present (GI) Details: LLQ and RLQ Extremity: COMMON NORMALS: normal to inspection, full ROM, no clubbing, cyanosis or edema and no pedal edema Neuro: COMMON NORMALS: patient oriented x3, moves all extremities, no focal motor deficits and no sensory deficits noted Psych: COMMON NORMALS: mental status grossly normal, Normal thought process present, cooperative, normal affect and speech normal SPEECH: Yes normal speech THOUGHT PROCESS: Normal thought process present Skin: COMMON NORMALS: no rashes or lesions noted, no jaundice, no petechiae and no mottling GENERAL SKIN EXAM: no rashes or lesions noted Data : 06/28/19 02:18 06/28/19 02:18 Micro: Microbiology 06/28/19 12:15 Blood Culture - Preliminary Blood SPECIMEN COLLECTED 06/28/19 08:26 Blood Culture - Preliminary Blood SPECIMEN COLLECTED A&P Assessment and plan (1) Pancreatitis: -Acute interstitial edematous pancreatitis -Noted to have moderate pancreatic and peripancreatic edema, no fluid collection, hemorrhage or evidence of necrosis on imaging -[id number] -Negative alcohol screen -Noted LFT elevation though improved compared to most recent labs earlier this month -Lipid panel, A1c (6.4) noted -CLD, IVF hydration, pain control and antiemetics as needed -unclear etiology as no hx of EtOH abuse, does not appear to have significant hypertriglyceridemia, not on medications that would precipitate this, not diabetic, no pancreatic abnormality on previous imaging including MRI done last month Status: Acute Qualifiers: Acute pancreatitis complication: unspecified Chronicity: acute Pancreatitis type: unspecified pancreatitis type Qualified Code(s): K85.90 - Acute pancreatitis without necrosis or infection, unspecified (2) Portal vein thrombosis: -Had initially been seen on CT abdomen and pelvis done on 05/08/2019 during which time he was noted to have acute thrombosis involving the portal vein, superior mesenteric vein and distal mesenteric branches, hepatic steatosis, extensive mesenteric stranding and congestion, early ischemic changes in the left small bowel with no perforation. Patient was then transferred to [facility] in [place] where he was anticoagulated initially with IV heparin and then discharged on 7 days of Lovenox and has since been taking Eliquis. -Review of records obtained from [facility] show normal AFP (3.4), negative hypercoagulability work-up including factor V Leiden mutation though was found to have slightly elevated serum homocysteine at 18. MRI of the abdomen with and without contrast with extensive non-occlusive thrombosis within portal venous tree with involvement of portal venous confluence and branches of superior mesenteric vein, marked fatty liver infiltration, sludge within the gallbladder lumen. Copy of records in paper chart -Unclear etiology as no prior liver pathology and workup relatively unrevealing -Seen by Dr. Gonzales on 06/03 Status: Acute (3) Superior mesenteric vein thrombosis: -Appears unchanged on imaging -as noted above Status: Acute (4) Hypokalemia: -replace K as needed Status: Acute Additional A&P Information -GERD -DVT ppx not needed as patient is on therapeutic anticoagulation with Eliquis -Dispo: home -Code status: FULL code Attestations Medical Necessity Statement*: Patient requires hospitalization for continued management of acute pancreatitis, on pain management, IVF hydration. Time Spent in Patient Care: Greater than 35 minutes (>than 50% of time spent in counselling and/or direct pt care on unit). Coding Level of Care Code Acute Painter for [facility] Fwd Exam Comprehensive Diagnoses Pancreatitis K85.90 Acute pancreatitis complication: unspecified Chronicity: acute Pancreatitis type: unspecified pancreatitis type Portal vein thrombosis I81 Superior mesenteric vein thrombosis K55.069 Hypokalemia E87.6
[2019-06-29] VITALS (12 sets, daily range): BP systolic 125–171; BP diastolic 75–82; PULSE 100–117; RESP 16–20; TEMP 37.1–37.7; O2SAT 91–97
[2019-06-29] MEDS: sodium chlor 0.9% + KCl 20 mEq 20 MEQ/1,000 ML BAG 150 MEQ IV ×3 (03:32→17:10)
[2019-06-29] MEDS: HYDROmorphone 1 mg/mL INJ 1 mL 0.5 MG IVP ×6 (03:32→23:43)
[2019-06-29 06:09] LABS: Basophils % 0.2 %; Eosinophils # 0.4 10^3/uL (0.0-0.8); Eosinophils % 3.7 %; Hematocrit 40.2 % (42.0-52.0); Hemoglobin 12.5 g/dL (11.7-16.6); Lymphocytes # 1.8 10^3/uL (0.8-4.8); Lymphocytes % 15.9 %; Mean Corpuscular HGB Conc 31.1 g/dL (30.0-36.0); Mean Corpuscular Hemoglobin 28.3 pg (28.0-34.0); Mean Corpuscular Volume 91.2 fL (80-94); Mean Platelet Volume 9.9 fL (7.4-10.4); Monocytes # 1.2 10^3/uL (0.2-0.9); Neutrophils % 69.8 %; Nucleated Red Blood Cells % 0 %; Platelet Count 296 10^3/cmm (130-400); Red Blood Count 4.41 10^6/uL (4.1-5.3); Red Cell Distribution Width 15.6 % (12.1-15.1); White Blood Count 11.5 10^3/uL (4.0-10.0)
[2019-06-29 06:33] LABS: Alanine Aminotransferase 39 U/L (0-41); Albumin Level 3.2 g/dL (3.5-5.2); Alkaline Phosphatase 80 IU/L (40-130); Anion Gap 13.7 (5-19); Aspartate Amino Transferase 36 U/L (0-40); Blood Urea Nitrogen 7 mg/dL (6-20); Calcium 8.4 mg/dL (8.5-10.5); Carbon Dioxide 23 mmol/L (22-29); Chloride 105 mmol/L (98-107); Glomerular Filtration Rate 92.1 mL/min (90-130); Glucose 110 mg/dL (65-115); Osmolality Calculated 282 mOsm/kg (285-295); Potassium 3.7 mmol/L (3.5-5.1); Sodium 138 mmol/L (136-145); Total Bilirubin 1.5 mg/dL (0.15-1.2); Total Protein 6.2 g/dL (6.6-8.7)
[2019-06-29] MEDS: apixaban 5 mg Tablet PO ×2 (08:52→17:06)
--- NOTE | 2019-06-29 14:39 | PC.CHAP ---
Pastoral Care Encounter/Spiritual Assessment Type of Contact [] Declined endocrinologist visit [] Patient/Family/Request visit [] Outpatient visit [] Follow-up visit [] Physician referral [] Code/Alert [X] Routine visit [] Staff referral [] Actively dying [] Patient sleeping [] Family support [] [] Out of room [] Palliative care [] [] Receiving care in room [] Pre-surgical visit [] Trauma [] Long length of stay [] ICU visit [] Other: Relational/Emotional Strength [] Patient feels connected with others/family/visitors/staff [] Distress [] Loneliness/isolation [] Abandonment Spirituality of Patient [X] Person of Diana [] Attends Scientologist of their Diana [X] Believes in Prayer [] Reads Bible or Judaism materials [] There are Spiritual issues to be addressed Cooperative Education Coordinator Interventions [X] Prayer [] Active listening [] Non-anxious presence [] Spiritual/emotional support [] Crisis/trauma care [] Spiritual counseling [] Bereavement support [] Provided bereavement packet [] Provided Bible/devotional materials [] Provided toy/stuffed animal, coloring book to patient or family member [] Provided Communion [] Anointing/[place] [] Salvation [] Completed spiritual assessment [] Other: Impact on Illness or Injury [] Angry [] Fearful [] Anxious [] Often cries [] Exhaustion [] Unable to work [] Unable to attend yazidi [] Unable to walk/stand [] Unable to read [] Unable to drive [] Unable to eat/drink [] Unable to sleep [] Unable to be with family [] Patient intubated [] Other: Summary Time spent with patient
--- NOTE | 2019-06-29 16:34 | PM.PN ---
Subjective Subjective: Interval history: Has 1120 mL urine output overnight, improved LFTs and leukocytosis, tolerating oral intake well but feels that pain is not consistently controlled and does not feel ready to go home. Requests decreased interval between consecutive pain med doses to better manage pain. Increased abdominal pressure when he sits up. Has been voiding well, no BM. Medications: Reviewed: Yes Medication Review Details: Active Medications Generic Name Dose Route Start Last Admin Trade Name Freq PRN Reason Stop Dose Admin Apixaban 5 mg 06/28/19 09:00 06/29/19 08:52 Eliquis PO 5 mg BID ELLIOTT Administration Hydromorphone HCl 0.5 mg 06/28/19 05:33 06/29/19 12:52 Dilaudid Inj IVP 0.5 mg Q4H PRN Administration PAIN Potassium Chloride /Sodium Chloride 20 meq in 1,000 m ls @ 150 mls/hr 06/28/19 06:45 06/29/19 10:11 Sodium Chlor 0.9 % + Kcl 20 Meq IV 150 mls/hr .Q6H40M ELLIOTT Administration Ketorolac Trometha mine 30 mg 06/28/19 06:44 06/28/19 09:00 Toradol IVP 07/03/19 06:43 30 mg Q8H PRN Administration MODERATE PAIN Ondansetron HCl 4 mg 06/28/19 06:45 06/28/19 19:07 Zofran IVP 4 mg Q8H PRN Administration vomiting, or N/V if npo Penicillins Allergy (Verified 06/11/19 19:46) Unknown Vitals/I&O/Wt Last Vital Signs Temp 99.8 F H 06/29/19 15:59 Pulse 108 H 06/29/19 15:59 Resp 18 06/29/19 15:59 BP 171/77 06/29/19 15:59 Pulse Ox 94 06/29/19 15:59 06/29/19 06/29/19 06/29/19 06:59 14:59 22:59 Intake Total 927.5 / 3592.5 997.5 / 997.5 Output Total 920 / 1120 1400 / 1400 Balance 7.5 / 2472.5 -402.5 / -402.5 Weight last 48 hrs Weight 91.626 kg Physical Exam Const: COMMON NORMALS: no acute distress and patient oriented x3 GENERAL APPEARANCE: cooperative and comfortable NUTRITIONAL APPEARANCE: obese centrally obese ORIENTATION/CONSCIOUSNESS: Yes awake HENMT: COMMON NORMALS: normocephalic, atraumatic, hearing grossly normal bilaterally and moist oral mucous membranes HEAD & SCALP: normocephalic and atraumatic TEETH & GINGIVA: Yes poor dentition Eye: COMMON NORMALS: Equal, round and reactive pupils present, EOMs intact bilaterally and conjunctivae normal CONJUNCTIVA: Yes conjunctivae normal PUPIL: Yes Equal, round and reactive pupils present Neck/C-Spine: COMMON NORMALS: full ROM GENERAL: Yes normal visual inspection and Yes trachea midline Resp: COMMON NORMALS: normal respiratory effort, No retractions, No use of accessory muscles and clear to auscultation bilaterally EFFORT & INSPECTION: Yes able to speak in complete sentences, Yes symmetric chest movement and No tachypneic AUSCULTATION: clear to auscultation bilaterally Cardio: COMMON NORMALS: regular rate, regular rhythm, S1 normal heart sound present, S2 normal heart sound present and No murmurs present (Cardio) RATE: regular rate RHYTHM: regular rhythm HEART SOUNDS: S1 normal heart sound present and S2 normal heart sound present GI: COMMON NORMALS: Normal to inspection, nondistended, normoactive bowel sounds present, Soft to palpation and non-tender INSPECTION: Yes central obesity PALPATION: Yes Soft to palpation and Yes Tenderness to palpation present (GI) Details: LLQ and RLQ Extremity: COMMON NORMALS: normal to inspection, full ROM, no clubbing, cyanosis or edema and no pedal edema Neuro: COMMON NORMALS: patient oriented x3, moves all extremities, no focal motor deficits and no sensory deficits noted Psych: COMMON NORMALS: mental status grossly normal, Normal thought process present, cooperative, normal affect and speech normal SPEECH: Yes normal speech THOUGHT PROCESS: Normal thought process present Skin: COMMON NORMALS: no rashes or lesions noted, no jaundice, no petechiae and no mottling GENERAL SKIN EXAM: no rashes or lesions noted Data : 06/29/19 05:20 06/29/19 05:20 Micro: Microbiology 06/28/19 12:15 Blood Culture - Preliminary Blood NEGATIVE TO DATE 06/28/19 08:26 Blood Culture - Preliminary Blood NEGATIVE TO DATE A&P Assessment and plan (1) Pancreatitis: -Acute interstitial edematous pancreatitis -Noted to have moderate pancreatic and peripancreatic edema, no fluid collection, hemorrhage or evidence of necrosis on imaging -[id number]; repeat tomorrow -Negative alcohol screen -Noted LFT elevation now resolved -Lipid panel, A1c (6.4) noted -GI soft diet, IVF hydration, pain control and antiemetics as needed -unclear etiology as no hx of EtOH abuse, does not appear to have significant hypertriglyceridemia, not on medications that would precipitate this, not diabetic, no pancreatic abnormality on previous imaging including MRI done last month Status: Acute Qualifiers: Acute pancreatitis complication: unspecified Chronicity: acute Pancreatitis type: unspecified pancreatitis type Qualified Code(s): K85.90 - Acute pancreatitis without necrosis or infection, unspecified (2) Portal vein thrombosis: -Had initially been seen on CT abdomen and pelvis done on 05/08/2019 during which time he was noted to have acute thrombosis involving the portal vein, superior mesenteric vein and distal mesenteric branches, hepatic steatosis, extensive mesenteric stranding and congestion, early ischemic changes in the left small bowel with no perforation. Patient was then transferred to [facility] in [place] where he was anticoagulated initially with IV heparin and then discharged on 7 days of Lovenox and has since been taking Eliquis. -Review of records obtained from [facility] show normal AFP (3.4), negative hypercoagulability work-up including factor V Leiden mutation though was found to have slightly elevated serum homocysteine at 18. MRI of the abdomen with and without contrast with extensive non-occlusive thrombosis within portal venous tree with involvement of portal venous confluence and branches of superior mesenteric vein, marked fatty liver infiltration, sludge within the gallbladder lumen. Copy of records in paper chart -Unclear etiology as no prior liver pathology and workup relatively unrevealing -Seen by Dr. Gonzales on 06/03 Status: Acute (3) Superior mesenteric vein thrombosis: -Appears unchanged on imaging -as noted above Status: Acute (4) Hypokalemia: -replace K as needed Status: Acute Additional A&P Information -GERD -DVT ppx not needed as patient is on therapeutic anticoagulation with Eliquis -Dispo: home -Code status: FULL code Attestations Medical Necessity Statement*: Patient requires hospitalization for continued pain control, on IVF hydration, needs more optimal pain control. Time Spent in Patient Care: 16 - 35 minutes (>than 50% of time spent in counselling and/or direct pt care on unit). 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
[2019-06-29] MEDS: sodium chlor 0.9% + KCl 20 mEq 20 MEQ/1,000 ML BAG 75 MEQ IV (23:53)
[2019-06-30] VITALS (10 sets, daily range): BP systolic 131–157; BP diastolic 78–90; PULSE 82–109; RESP 16–20; TEMP 37.2–37.6; O2SAT 92–95
[2019-06-30] MEDS: HYDROmorphone 1 mg/mL INJ 1 mL 0.5 MG IVP ×3 (04:18→10:42)
[2019-06-30 05:41] LABS: Basophils % 0.3 %; Eosinophils # 0.7 10^3/uL (0.0-0.8); Eosinophils % 5.7 %; Hematocrit 37.7 % (42.0-52.0); Lymphocytes # 1.9 10^3/uL (0.8-4.8); Lymphocytes % 16.1 %; Mean Corpuscular HGB Conc 31.8 g/dL (30.0-36.0); Mean Corpuscular Hemoglobin 29.4 pg (28.0-34.0); Mean Corpuscular Volume 92.4 fL (80-94); Mean Platelet Volume 10.1 fL (7.4-10.4); Monocytes # 1.4 10^3/uL (0.2-0.9); Monocytes % 12.1 %; Neutrophils # 7.6 10^3/uL (1.8-7.7); Neutrophils % 65.3 %; Nucleated Red Blood Cells % 0 %; Platelet Count 261 10^3/cmm (130-400); Red Blood Count 4.08 10^6/uL (4.1-5.3); Red Cell Distribution Width 15.7 % (12.1-15.1); White Blood Count 11.7 10^3/uL (4.0-10.0)
[2019-06-30 05:59] LABS: Alanine Aminotransferase 41 U/L (0-41); Albumin Level 3.2 g/dL (3.5-5.2); Alkaline Phosphatase 84 IU/L (40-130); Aspartate Amino Transferase 40 U/L (0-40); Blood Urea Nitrogen 6 mg/dL (6-20); Calcium 8.2 mg/dL (8.5-10.5); Carbon Dioxide 24 mmol/L (22-29); Chloride 106 mmol/L (98-107); Globulin 2.8 g/dL (1.3-4.6); Glomerular Filtration Rate 92.1 mL/min (90-130); Glucose 101 mg/dL (65-115); Osmolality Calculated 284 mOsm/kg (285-295); Sodium 139 mmol/L (136-145); Total Bilirubin 1.1 mg/dL (0.15-1.2)
[2019-06-30 06:07] LABS: Lipase 911 U/L (13-60)
--- NOTE | 2019-06-30 08:00 | PC.NURSE ---
Patient up and getting into the shower at this time.
[2019-06-30] MEDS: apixaban 5 mg Tablet PO ×2 (08:35→17:23)
--- NOTE | 2019-06-30 09:10 | PC.NURSE ---
Dr. Clrak at bedside evaluating patient.
--- NOTE | 2019-06-30 09:23 | P.PN_ITS ---
Subjective Subjective: Interval history: Patient seen and examined, no apparent distress, overnight received a total of 1.5 mg of IV Dilaudid, seems to have had better pain control particularly in terms of consistency. Was able to get up this morning and take a shower. Tolerating oral intake without difficulty. Pending BM. Hemodynamically stable, afebrile. AM labs noted with decreased lipase, normalization of liver function tests. Discussed transitioning to oral pain medications which he is agreeable to. Reports less lower abdominal discomfort, minimal radiation to the lower back, does not seem to have much discomfort in the epigastric or upper quadrants. Medications: Reviewed: Yes Medication Review Details: Active Medications Generic Name Dose Route Start Last Admin Trade Name Freq PRN Reason Stop Dose Admin Acetaminophen 650 mg 06/30/19 09:22 Tylenol PO Q6H PRN Mild Pain or feve r Apixaban 5 mg 06/28/19 09:00 06/30/19 08:35 Eliquis PO 5 mg BID ELLIOTT Administration Hydromorphone HCl 0.5 mg 06/29/19 17:18 06/30/19 07:49 Dilaudid Inj IVP 0.5 mg Q3H PRN Administration PAIN Hydromorphone HCl 2 mg 06/30/19 12:00 Dilaudid Tab PO Q6H PRN severe pain Ondansetron HCl 4 mg 06/28/19 06:45 06/28/19 19:07 Zofran IVP 4 mg Q8H PRN Administration vomiting, or N/V if npo Polyethylene Glyco l 17 gm 06/30/19 09:22 Miralax PO DAILY PRN CONSTIPATION Tramadol HCl 50 mg 06/30/19 09:21 Ultram PO Q4H PRN MODERATE PAIN Penicillins Allergy (Verified 06/11/19 19:46) Unknown Vitals/I&O/Wt Last Vital Signs Temp 99.6 F 06/30/19 07:21 Pulse 98 06/30/19 07:21 Resp 16 06/30/19 07:49 BP 140/89 06/30/19 07:21 Pulse Ox 93 06/30/19 07:21 06/29/19 06/30/19 06/30/19 22:59 06:59 14:59 Intake Total 1000 / 1997.5 1000 / 2997.5 Output Total 2250 / 3650 0 / 3650 400 / 400 Balance -1250 / -1652.5 1000 / -652.5 -400 / -400 Physical Exam Const: COMMON NORMALS: no acute distress and patient oriented x3 GENERAL APPEARANCE: cooperative and comfortable NUTRITIONAL APPEARANCE: obese centrally obese ORIENTATION/CONSCIOUSNESS: Yes awake HENMT: COMMON NORMALS: normocephalic, atraumatic, hearing grossly normal bilaterally and moist oral mucous membranes HEAD & SCALP: normocephalic and atraumatic TEETH & GINGIVA: Yes poor dentition Eye: COMMON NORMALS: Equal, round and reactive pupils present, EOMs intact bilaterally and conjunctivae normal CONJUNCTIVA: Yes conjunctivae normal PUPIL: Yes Equal, round and reactive pupils present Neck/C-Spine: COMMON NORMALS: full ROM GENERAL: Yes normal visual inspection and Yes trachea midline Resp: COMMON NORMALS: normal respiratory effort, No retractions, No use of accessory muscles and clear to auscultation bilaterally EFFORT & INSPECTION: Yes able to speak in complete sentences, Yes symmetric chest movement and No tachypneic AUSCULTATION: clear to auscultation bilaterally Cardio: COMMON NORMALS: regular rate, regular rhythm, S1 normal heart sound present, S2 normal heart sound present and No murmurs present (Cardio) RATE: regular rate RHYTHM: regular rhythm HEART SOUNDS: S1 normal heart sound present and S2 normal heart sound present GI: COMMON NORMALS: Normal to inspection, nondistended, normoactive bowel sounds present, Soft to palpation and non-tender INSPECTION: Yes central obesity PALPATION: Yes Soft to palpation and Yes Tenderness to palpation present (GI) (Minimal discomfort in bilateral lower quadrants) Extremity: COMMON NORMALS: normal to inspection, full ROM, no clubbing, cyanosis or edema and no pedal edema Neuro: COMMON NORMALS: patient oriented x3, moves all extremities, no focal motor deficits and no sensory deficits noted Psych: COMMON NORMALS: mental status grossly normal, Normal thought process present, cooperative, normal affect and speech normal SPEECH: Yes normal speech THOUGHT PROCESS: Normal thought process present Skin: COMMON NORMALS: no rashes or lesions noted, no jaundice, no petechiae and no mottling GENERAL SKIN EXAM: no rashes or lesions noted Data : 06/30/19 05:15 06/30/19 05:15 Micro: Microbiology 06/28/19 12:15 Blood Culture - Preliminary Blood NEGATIVE TO DATE 06/28/19 08:26 Blood Culture - Preliminary Blood NEGATIVE TO DATE A&P Assessment and plan (1) Pancreatitis: -Acute interstitial edematous pancreatitis -Noted to have moderate pancreatic and peripancreatic edema, no fluid collection, hemorrhage or evidence of necrosis on imaging -[id number]->911 -Negative alcohol screen -Noted LFT elevation now resolved -Lipid panel, A1c (6.4) noted -GI soft diet, IVF hydration, antiemetics as needed -unclear etiology as no hx of EtOH abuse, does not appear to have significant hypertriglyceridemia, not on medications that would precipitate this, not diabetic, no pancreatic abnormality on previous imaging including MRI done last month -has good oral intake so will d/c IVF -pain control as needed; transition to PO meds Status: Acute Qualifiers: Acute pancreatitis complication: unspecified Chronicity: acute Panc reatitis type: unspecified pancreatitis type Qualified Code(s): K85.90 - Acute pancreatitis without necrosis or infection, unspecified (2) Portal vein thrombosis: -Had initially been seen on CT abdomen and pelvis done on 05/08/2019 during which time he was noted to have acute thrombosis involving the portal vein, superior mesenteric vein and distal mesenteric branches, hepatic steatosis, extensive mesenteric stranding and congestion, early ischemic changes in the left small bowel with no perforation. Patient was then transferred to [facility] in [place] where he was anticoagulated initially with IV heparin and then discharged on 7 days of Lovenox and has since been taking Eliquis. -Review of records obtained from [facility] show normal AFP (3.4), negative hypercoagulability work-up including factor V Leiden mutation though was found to have slightly elevated serum homocysteine at 18. MRI of the abdomen with and without contrast with extensive non-occlusive thrombosis within portal venous tree with involvement of portal venous confluence and branches of superior mesenteric vein, marked fatty liver infiltration, sludge within the gallbladder lumen. Copy of records in paper chart -Unclear etiology as no prior liver pathology and workup relatively unrevealing -Seen by Dr. Gonzales on 06/03 Status: Acute (3) Superior mesenteric vein thrombosis: -Appears unchanged on imaging -as noted above Status: Acute (4) Hypokalemia: -replace K as needed Status: Acute Additional A&P Information -GERD -DVT ppx not needed as patient is on therapeutic anticoagulation with Eliquis -Dispo: home -Code status: FULL code Attestations Medical Necessity Statement*: Patient requires hospitalization for continued management of acute pancreatitis, transitioning to oral pain medication today. Time Spent in Patient Care: 16 - 35 minutes (>than 50% of time spent in counselling and/or direct pt care on unit) . Coding Level of Care Code Acute Decal Decorator for [facility] [employer] Diagnoses Pancreatitis K85.90 Acute pancreatitis complication: unspecified Chronicity: acute Pancreatitis type: unspecified pancreatitis type Portal vein thrombosis I81 Superior mesenteric vein thrombosis K55.069 Hypokalemia E87.6
--- NOTE | 2019-06-30 14:15 | PC.NURSE ---
In room to check on patient. Patient appears to be sleeping laying on his right side with his eyes closed.
[2019-07-01] VITALS: BP 147/83; PULSE 84; RESP 20; TEMP 37.1; O2SAT 95
[2019-07-01 04:00] VITALS: BP 123/83; PULSE 101; RESP 20; TEMP 37.1; O2SAT 96
[2019-07-01 06:28] LABS: Basophils % 0.3 %; Eosinophils # 0.7 10^3/uL (0.0-0.8); Eosinophils % 5.5 %; Hematocrit 36.2 % (42.0-52.0); Hemoglobin 11.6 g/dL (11.7-16.6); Lymphocytes # 2.3 10^3/uL (0.8-4.8); Lymphocytes % 19.5 %; Mean Corpuscular Hemoglobin 29.4 pg (28.0-34.0); Mean Corpuscular Volume 91.6 fL (80-94); Mean Platelet Volume 9.8 fL (7.4-10.4); Monocytes # 1.5 10^3/uL (0.2-0.9); Monocytes % 12.2 %; Neutrophils # 7.4 10^3/uL (1.8-7.7); Neutrophils % 62.2 %; Nucleated Red Blood Cells % 0 %; Platelet Count 278 10^3/cmm (130-400); Red Blood Count 3.95 10^6/uL (4.1-5.3); Red Cell Distribution Width 15.7 % (12.1-15.1); White Blood Count 11.9 10^3/uL (4.0-10.0)
[2019-07-01 06:51] LABS: Alanine Aminotransferase 37 U/L (0-41); Albumin Level 3.4 g/dL (3.5-5.2); Alkaline Phosphatase 81 IU/L (40-130); Anion Gap 15.3 (5-19); Aspartate Amino Transferase 32 U/L (0-40); Blood Urea Nitrogen 6 mg/dL (6-20); Calcium 8.3 mg/dL (8.5-10.5); Carbon Dioxide 23 mmol/L (22-29); Chloride 101 mmol/L (98-107); Globulin 3.1 g/dL (1.3-4.6); Glomerular Filtration Rate 123.1 mL/min (90-130); Glucose 108 mg/dL (65-115); Osmolality Calculated 278 mOsm/kg (285-295); Potassium 3.3 mmol/L (3.5-5.1); Sodium 136 mmol/L (136-145); Total Bilirubin 0.9 mg/dL (0.15-1.2); Total Protein 6.5 g/dL (6.6-8.7)
[2019-07-01 07:30] VITALS: BP 137/83; PULSE 90; RESP 20; TEMP 37; O2SAT 93
--- NOTE | 2019-07-01 09:14 | P.DS_ITS ---
Discharge Providers Date of Admission: 06/28/19 03:43 Date of Discharge: July 01, 2019 Attending Provider at Admission: Emerald Jones MD Attending Provider at Discharge: Jenelle Clark MD Primary Care Provider: Sandra Lentz MD Diagnoses at Discharge Discharge Diagnosis (1) Pancreatitis: Status: Acute Problem details: -Acute interstitial edematous pancreatitis -Noted to have moderate pancreatic and peripancreatic edema, no fluid collection, hemorrhage or evidence of necrosis on imaging -[id number] -Negative alcohol screen -Noted LFT elevation now resolved -Lipid panel, A1c (6.4) noted -GI soft diet, IVF hydration, antiemetics as needed -unclear etiology as no hx of EtOH abuse, does not appear to have significant hypertriglyceridemia, not on medications that would precipitate this, not diabetic, no pancreatic abnormality on previous imaging including MRI done last month -has good oral intake so will d/c IVF -pain control as needed; transitioned to PO meds with continued pain control Qualifiers: Acute pancreatitis complication: unspecified Chronicity: acute Pancreatitis type: unspecified pancreatitis type Qualified Code(s): K85.90 - Acute pancreatitis without necrosis or infection, unspecified (2) Portal vein thrombosis: Status: Acute Problem details: -Had initially been seen on CT abdomen and pelvis done on 05/08/2019 during which time he was noted to have acute thrombosis involving the portal vein, superior mesenteric vein and distal mesenteric branches, hepatic steatosis, extensive mesenteric stranding and congestion, early ischemic changes in the left small bowel with no perforation. Patient was then transferred to [facility] in [place] where he was anticoagulated initially with IV heparin and then discharged on 7 days of Lovenox and has since been taking Eliquis. -Review of records obtained from [facility] show normal AFP (3.4), negative hypercoagulability work-up including factor V Leiden mutation though was found to have slightly elevated serum homocysteine at 18. MRI of the abdomen with and without contrast with extensive non-occlusive thrombosis within portal venous tree with involvement of portal venous confluence and branches of superior mesenteric vein, marked fatty liver infiltration, sludge within the gallbladder lumen. Copy of records in paper chart -Unclear etiology as no prior liver pathology and workup relatively unrevealing -Seen by Dr. 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 Imaging did not show any acute abnormality involving the pancreatic area and he has no portal vein and superior mesenteric vein thrombosis for which she has been treated with Eliquis. Superior mesenteric vein thrombosis appears unchanged on CT and there is some decreased distal mesenteric edema and decreased clot burden involving the portal vein. Etiology of pancreatitis is currently unclear as patient is not an alcoholic, does not have any underlying liver disease, no evidence of hyper triglyceridemia, not on medications that would contribute to this. Liver function tests have been within normal limits, electrolytes particularly potassium was replaced as ne eded. He has been hemodynamically stable, afebrile, not requiring supplemental oxygen support. He initially required quite aggressive IV pain control but has not been transitioned to oral pain medication with decreased pain requirement. He has been tolerating oral intake without difficulty, initially on a clear liquid diet and has been advanced to a GI soft diet. He has had good urinary output consistently throughout his hospital stay. He has been maintained on his anticoagulation with Eliquis. He will need to continue to follow-up with his primary care physician and is encouraged to seek medical attention immediately should his symptoms particularly in terms of abdominal pain recur. He did well overnight, pain was well controlled and he remains hemodynamically stable. He would like to be discharged home today. Discharge Summary: -Patient to follow-up with primary care physician within 1 week Physical Exam Const: COMMON NORMALS: no acute distress and patient oriented x3 GENERAL APPEARANCE: cooperative and comfortable NUTRITIONAL APPEARANCE: obese centrally obese ORIENTATION/CONSCIOUSNESS: Yes awake HENMT: COMMON NORMALS: normocephalic, atraumatic, hearing grossly normal bilaterally and moist oral mucous membranes HEAD & SCALP: normocephalic and atraumatic TEETH & GINGIVA: Yes poor dentition Eye: COMMON NORMALS: Equal, round and reactive pupils present, EOMs intact bilaterally and conjunctivae normal CONJUNCTIVA: Yes conjunctivae normal PUPIL: Yes Equal, round and reactive pupils present Neck/C-Spine: COMMON NORMALS: full ROM GENERAL: Yes normal visual inspection and Yes trachea midline Resp: COMMON NORMALS: normal respiratory effort, No retractions, No use of accessory muscles and clear to auscultation bilaterally EFFORT & INSPECTION: Yes able to speak in complete sentences, Yes symmetric chest movement and No tachypneic AUSCULTATION: clear to auscultation bilaterally Cardio: COMMON NORMALS: regular rate, regular rhythm, S1 normal heart sound present, S2 normal heart sound present and No murmurs present (Cardio) RATE: regular rate RHYTHM: regular rhythm HEART SOUNDS: S1 normal heart sound present and S2 normal heart sound present GI: COMMON NORMALS: Normal to inspection, nondistended, normoactive bowel sounds present, Soft to palpation and non-tender INSPECTION: Yes central obesity PALPATION: Yes Soft to palpation Extremity: COMMON NORMALS: normal to inspection, full ROM, no clubbing, cyanosis or edema and no pedal edema Neuro: COMMON NORMALS: patient oriented x3, moves all extremities, no focal m otor deficits and no sensory deficits noted Psych: COMMON NORMALS: mental status grossly normal, Normal thought process present, cooperative, normal affect and speech normal SPEECH: Yes normal speech THOUGHT PROCESS: Normal thought process present Skin: COMMON NORMALS: no rashes or lesions noted, no jaundice, no petechiae and no mottling GENERAL SKIN EXAM: no rashes or lesions noted Discharge Data Data Completed and Pending: Completed Studies During Hospitalization Category Date Time Status CT abdomen pelvis w con* [id number] Urge nt Cat Scan 06/28/19 02:17 Completed Pending at discharge Category Date Time Status Blood Culture Rou jasmin Lab 06/28/19 12:15 Results Miscellaneous Yuridia t Routine Lab 06/28/19 02:18 Received OVA and Parasites , Conc and PE Rout ine Lab 06/28/19 06:48 Ordered OVA and Parasites , Conc and PE Rout ine Lab 06/28/19 06:55 Ordered Labs from last 24 hours 07/01/19 07/01/19 06:08 06:08 WBC 11.9 H RBC 3.95 L Hgb 11.6 L Hct 36.2 L MCV 91.6 MCH 29.4 MCHC 32.0 RDW 15.7 H Plt Count 278 MPV 9.8 Neut % (Auto) 62.2 Lymph % (Auto) 19.5 [place] % (Auto) 12.2 Eos % (Auto) 5.5 Baso % (Auto) 0.3 Neut # (Auto) 7.4 Lymph # (Auto) 2.3 [place] # (Auto) 1.5 H Eos # (Auto) 0.7 Baso # (Auto) 0.0 Nucleated RBC % (a uto) 0 Nucleated RBCs # 0.0 Sodium 136 Potassium 3.3 L Chloride 101 Carbon Dioxide 23 Anion Gap 15.3 BUN 6 Creatinine 0.7 GFR Calculation 123.1 Glucose 108 Calculated Osmolal ity 278 L Calcium 8.3 L Total Bilirubin 0.9 AST 32 ALT 37 Alkaline Phosphata se 81 Total Protein 6.5 L Albumin 3.4 L Globulin 3.1 Vitals: Last Vital Signs Temp 98.6 F 07/01/19 07:30 Pulse 90 07/01/19 07:30 Resp 20 H 07/01/19 07:30 BP 137/83 07/01/19 07:30 Pulse Ox 93 07/01/19 07:30 Discharge Plan Discharge Patient Disposition: Home, Self-Care Condition: Stable Prescriptions: New Miralax 17 gram Powder In Packet 17 g PO DAILY PRN (Reason: Constipation) 30 Days Qty: 30 RF: 0 hydromorphone 4 mg Tablet 2 mg PO Q6H PRN (Reason: severe pain) Qty: 14 RF: 0 ondansetron HCl [Zofran] 4 mg tablet 4 mg PO Q8H PRN (Reason: nausea and vomiting) 5 Days Qty: 15 RF: 0 Continued Eliquis 5 mg Tablet 5 mg PO BID RF: 0 Discharge Orders: Discharge Order (Routine); Ordered 07/01/19 Ordered By: Jenelle Clark Referrals: Sandra Lentz MD [Primary Care Provider] - 4-7 days (Please call Monday to set up a follow up appointment) Discharge Diet: GI Soft Discharge Activity: Resume usual activity Activity Restrictions/Additional Instructions: -Please continue to eat soft bland foods for the next 2 to 3 days with gradual resumption of regular diet to allow for continued resolution of pancreatitis. Discharge Attestations Time Spent in Discharge Care*: greater than 30 min Specific Discharge Activities: Specific discharge activities: educating patient, discussing with pillowcase cutter/social workers/dc planners, documenting/other paperwork and evaluating patient/reviewing data Status at Discharge: Cognitive status at discharge: cognitively intact , Behavioral status at discharge: cooperative , Functional status at discharge: independent ambulation Overall status at discharge: patient is progressing back to baseline Quality Metrics Clinical Quality Measures During this hospital stay, did patient experience: None Coding Level of Care Code Acute [employer] Director for Chg Fwd Exam Comprehensive Diagnoses Pancreatitis K85.90 Acute pancreatitis complication: unspecified Chronicity: acute Pancreatitis type: unspecified pancreatitis type Portal vein thrombosis I81 Superior mesenteric vein thrombosis K55.069 Hypokalemia E87.6
[2019-07-01 09:26] VITALS: RESP 18
[2019-07-01] MEDS: apixaban 5 mg Tablet PO (09:26)
[2019-07-01 09:28] VITALS: RESP 18
== END 2019-07-01 09:45 | disposition home or self-care (01) | DRG 438 ==
LOC: ER 03:41 → MEDSURG 04:03
PROVIDERS: Admitting Provider Student in an Organized Health Care Education/Training Program; Emergency Provider Emergency Medicine; PCP Family Medicine; Visit Provider Family Medicine
DX: K85.90 Acute pancreatitis without necrosis or infection, unspecified (principal); K55.059 Acute (reversible) ischemia of intestine, part and extent unspecified; I81 Portal vein thrombosis; Z87.442 Personal history of urinary calculi; Z87.11 Personal history of peptic ulcer disease; K76.0 Fatty (change of) liver, not elsewhere classified; E87.6 Hypokalemia; E78.1 Pure hyperglyceridemia; K21.9 Gastro-esophageal reflux disease without esophagitis; Z79.01 Long term (current) use of anticoagulants
CPT/HCPCS: 12345; 36415; 74177; 80053; 80061; 80307; 83036; 83605; 83690; 85025; 87040; 96375; 99282; J1170; J1200; J1885; J2270; J2405; J2765; J3480; Q9967

== ENCOUNTER 2019-07-22 14:08 | Emergency (ER) | payer SELFPAY ==
[2019-07-22 14:37] VITALS: BP 127/77; PULSE 138; RESP 20; TEMP 36.9; O2SAT 96; BMI 27.3
--- NOTE | 2019-07-22 14:54 | ED_ITS ---
HPI - Abdominal Pain General: Chief Complaint: Abdominal Pain Stated Complaint: abd pain and swelling Time Seen by Provider: 07/22/19 14:48 Source: patient Mode of arrival: ambulatory Limitations: no limitations History of Present Illness: HPI narrative: 44-year-old male who has a history of a portal vein thrombosis is on Eliquis for that and a history of pancreatitis. Patient was recently admitted here for another pancreatitis flare. He states that he has had abdominal pain over the last week with it worsening today. He states pain is epigastric in nature and rates an 8 out of 10. He denies any worsening or improving factors. MD elicited complaint: abdominal pain Associated Symptoms: Denies chills, diarrhea, dysuria, fever(s), nausea and vomiting Review of Systems Const: Denies: fever(s), chills, body aches or change in appetite Eyes: Denies: blurry vision or eye discomfort ENMT: Denies: throat pain or dental pain Card: Denies: chest pain Resp: Denies: dyspnea GI: Reports: abdominal pain; Denies: nausea, vomiting or diarrhea : Denies: dysuria Musc: Denies: neck pain or back pain Skin/Breast: Denies: rash Neuro: Denies: headache(s) Psych: Denies: depression [place]/Lymph: Denies: easy bruising All/Imm: Denies: urticaria PFSH ED PFSH: Medical History Portal vein thrombosis -Had initially been seen on CT abdomen and pelvis done on 05/08/2019 during which time he was noted to have acute thrombosis involving the portal vein, superior mesenteric vein and distal mesenteric branches, hepatic steatosis, extensive mesenteric stranding and congestion, early ischemic changes in the left small bowel with no perforation. Patient was then transferred to [facility] in [place] where he was anticoagulated initially with IV heparin and then discharged on 7 days of Lovenox and has since been taking Eliquis. -Review of records obtained from [facility] show normal AFP (3.4), negative hypercoagulability work-up including factor V Leiden mutation though was found to have slightly elevated serum homocysteine at 18. MRI of the abdomen with and without contrast with extensive non-occlusive thrombosis within portal venous tree with involvement of portal venous confluence and branches of superior mesenteric vein, marked fatty liver infiltration, sludge within the gallbladder lumen. Copy of records in paper chart -Unclear etiology as no prior liver pathology and workup relatively unrevealing -Seen by Dr. 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 -as noted above Social History Smoking and tobacco status: never smoked Alcohol intake: current Physical Exam Const: COMMON NORMALS: patient oriented x3 and healthy appearing GENERAL APPEARANCE: in distress HENMT: COMMON NORMALS: normocephalic and atraumatic HEAD & SCALP: normocephalic and atraumatic Eye: COMMON NORMALS: Equal, round and reactive pupils present and EOMs intact bilaterally PUPIL: Yes Equal, round and reactive pupils present Neck/C-Spine: COMMON NORMALS: full ROM and supple Chest: COMMONS NORMALS: normal inspection of the chest and normal palpation of entire chest wall Resp: COMMON NORMALS: normal respiratory effort, No retractions, No use of accessory muscles and clear to auscultation bilaterally AUSCULTATION: clear to auscultation bilaterally Cardio: COMMON NORMALS: regular rhythm and No murmurs present (Cardio) RATE: tachycardic RHYTHM: regular rhythm GI: COMMON NORMALS: Normal to inspection, nondistended, normoactive bowel sounds present, Soft to palpation and no masses PALPATION: Yes Soft to palpation and Yes Tenderness to palpation present (GI) Extremity: COMMON NORMALS: normal to inspection and full ROM Neuro: COMMON NORMALS: patient oriented x3, moves all extremities and no focal motor deficits Psych: COMMON NORMALS: mental status grossly normal, Normal thought process present and cooperative THOUGHT PROCESS: Normal thought process present Skin: COMMON NORMALS: no rashes or lesions noted and no wounds GENERAL SKIN EXAM: no rashes or lesions noted Course Vital Signs: Vital signs: Vital Signs Temperature 98.5 F 07/22/19 14:37 Pulse Rate 91 07/22/19 19:03 Respiratory Rate 18 07/22/19 19:03 Blood Pressure 118/70 07/22/19 19:03 Pulse Oximetry 98 07/22/19 19:03 MDM - Abdominal Pain MDM Narrative: Medical decision making narrative: Patient presents with abdominal pain and has a very mild pancreatitis. We will place him on pain meds and he is to do a liquid diet for 3 to 4 days. Have him follow-up with his PCP. He is return to ER if worsening. He understands and agrees to this plan. Lab Data: Labs: Lab Results 07/22/19 07/22/19 Range/Units 15:00 15:00 WBC 8.7 (4.0-10.0) 10^3/ uL RBC 4.72 (4.1-5.3) 10^6/u L Hgb 13.4 (11.7-16.6) g/dL Hct 42.4 (42.0-52.0) % MCV 89.8 (80-94) fL MCH 28.4 (28.0-34.0) pg MCHC 31.6 (30.0-36.0) g/dL RDW 15.3 H (12.1-15.1) % Plt Count 358 (130-400) 10^3/c mm MPV 10.0 (7.4-10.4) fL Neut % (Auto) 53.2 % Lymph % (Auto) 36.2 % [place] % (Auto) 8.4 % Eos % (Auto) 1.7 % Baso % (Auto) 0.3 % Neut # (Auto) 4.6 (1.8-7.7) 10^3/u L Lymph # (Auto) 3.2 (0.8-4.8) 10^3/u L [place] # (Auto) 0.7 (0.2-0.9) 10^3/u L Eos # (Auto) 0.2 (0.0-0.8) 10^3/u L Baso # (Auto) 0.0 (0.0-0.1) 10^3/u L Nucleated RBC % (a uto) 0 % Nucleated RBCs # 0.0 /100WBC Sodium 140 (136-145) mmol/L Potassium 3.4 L (3.5-5.1) mmol/L Chloride 104 (98-107) mmol/L Carbon Dioxide 20 L (22-29) mmol/L Anion Gap 19.4 H (5-19) BUN 7 (6-20) mg/dL Creatinine 0.9 (0.7-1.2) mg/dL GFR Calculation 92.1 (90-130) mL/min Glucose 104 (65-115) mg/dL Calculated Osmolal ity 286 (285-295) mOsm/k g Calcium 9.1 (8.5-10.5) mg/dL Total Bilirubin 0.3 (0.15-1.2) mg/dL AST 50 H (0-40) U/L ALT 48 H (0-41) U/L Alkaline Phosphata se 111 (40-130) IU/L Total Protein 7.1 (6.6-8.7) g/dL Albumin 4.2 (3.5-5.2) g/dL Globulin 2.9 (1.3-4.6) g/dL Lipase 257 H (13-60) U/L Imaging Data ^: CT Abd/Pel: Radiologist's impression: [place] [address] CT Scan Report Signed Patient: Devaughn Elkins Unit #: [id number] : 1975 Age/Sex: 44 / M ADM Date: 07/22/19 Loc: ER Room/Bed: Attending Dr: Ordering Provider/Ordering MD: Yobany Barnes MD Date of Service: 07/22/19 Procedure(s): CT abdomen pelvis w con* [id number] Accession Number(s): [id number] Report Number: [id number] PROCEDURE INFORMATION: Exam: CT Abdomen And Pelvis With Contrast Exam date and time: 07/22/2019 5:19 PM Age: 44 years old Clinical indication: Abdominal pain; Acute; Additional info: Abd pain - diffused TECHNIQUE: Imaging protocol: Computed tomography of the abdomen and pelvis with intravenous contrast. Radiation optimization: All CT scans at this facility use at least one of these dose optimization techniques: automated exposure control; mA and/or kV adjustment per patient size (includes targeted exams where dose is matched to clinical indication); or iterative reconstruction. Contrast material: OMNI 300; Contrast volume: 95 ml; Contrast route: IV; COMPARISON: CT abdomen pelvis w con* [id number] 06/28/2019 2:43 AM RADIATION DOSE METRICS: Total DLP: 958.68 mGy-cm FINDINGS: Mediastinal space: A small hiatal hernia is present. Liver: There is a diffuse decrease in hepatic parenchymal density, consistent with fatty infiltration. Gallbladder and bile ducts: There is no common bile duct dilation. The gallbladder is normal. Pancreas: There is mild peripancreatic inflammatory stranding and fluid, concerning for mild acute pancreatitis. Spleen: Normal. No splenomegaly. Adrenals: Normal. No mass. Kidneys and ureters: There is no evidence of hydronephrosis. There are multiple renal hypodensities that cannot be further characterized on the current examination. There is a 1.4 cm unchanged simple cyst in the left kidney. Stomach and bowel: There is no evidence of intestinal perforation or obstruction. Moderate diverticulosis is present in the distal colon. There is no evidence of colitis/diverticulitis. Appendix: A normal appendix is identified. Intraperitoneal space: Unremarkable. No free air. No significant fluid collection. Vasculature: There are numerous benign phleboliths in the pelvis. The aorta is normal in size. Previously visualized portal vein thrombus is no longer identified. The superior mesenteric vein is very small and caliber but there is a tiny filling defect in its center which may reflect some residual scarring or residual tiny thrombus decreased since the prior exam image 38. Lymph nodes: Unremarkable.No enlarged lymph nodes. Bladder: There is nonspecific bladder wall thickening. This may be related to incomplete distention. Reproductive: Unremarkable as visualized. Bones/joints: Unremarkable. No acute fracture. Soft tissues: There is a fat-containing umbilical hernia. Other findings: No pseudocyst. CT/CT abdomen pelvis w con* [id number] IMPRESSION: 1. There is mild peripancreatic inflammatory stranding and fluid, concerning for mild acute pancreatitis. This is less prominent than the prior exam. No pseudocyst. Improved appearance of the superior mesenteric vein thrombosis compared to the prior exam. No portal vein thrombosis. 2. There is a 1.4 cm unchanged simple cyst in the left kidney. No follow-up is necessary. Discharge Plan Discharge Patient Disposition: Home, Self-Care Clinical Impression: Pancreatitis Qualifiers: Chronicity: acute Pancreatitis type: unspecified pancreatitis type Acute pancre atitis complication: unspecified Qualified Code(s): K85.90 - Acute pancreatitis without necrosis or infection, unspecified Condition: Stable Prescriptions: New Percocet 7.5-325 mg tablet 1 tab PO Q8H PRN (Reason: pain) Qty: 14 RF: 0 No Action hydromorphone 4 mg Tablet 2 mg PO Q6H PRN (Reason: severe pain) Qty: 14 RF: 0 Tylenol Extra Strength 500 mg Tablet 1,000 mg PO PRN RF: 0 Eliquis 5 mg Tablet 5 mg PO BID RF: 0 Discharge Orders: Discharge Order (Routine); Ordered 07/22/19 Ordered By: Yobany Barnes Referrals: Sandra Lentz MD [Primary Care Provider] - 1-3 days Discharge Diet: Advance as tolerated Discharge Activity: Resume usual activity Patient Instructions: Pancreatitis (ED) Discharge Date/Time: 07/22/19 19:06 Coding Level of Care Code ED Senior Qc Technician for Chg Fwd Exam Comprehensive
[2019-07-22 15:23] LABS: Alanine Aminotransferase 48 U/L (0-41); Albumin Level 4.2 g/dL (3.5-5.2); Alkaline Phosphatase 111 IU/L (40-130); Anion Gap 19.4 (5-19); Aspartate Amino Transferase 50 U/L (0-40); Blood Urea Nitrogen 7 mg/dL (6-20); Calcium 9.1 mg/dL (8.5-10.5); Carbon Dioxide 20 mmol/L (22-29); Chloride 104 mmol/L (98-107); Globulin 2.9 g/dL (1.3-4.6); Glomerular Filtration Rate 92.1 mL/min (90-130); Glucose 104 mg/dL (65-115); Lipase 257 U/L (13-60); Osmolality Calculated 286 mOsm/kg (285-295); Potassium 3.4 mmol/L (3.5-5.1); Sodium 140 mmol/L (136-145); Total Bilirubin 0.3 mg/dL (0.15-1.2); Total Protein 7.1 g/dL (6.6-8.7)
--- NOTE | 2019-07-22 15:38 | CTR_ITS ---
PROCEDURE INFORMATION: Exam: CT Abdomen And Pelvis With Contrast Exam date and time: 07/22/2019 5:19 PM Age: 44 years old Clinical indication: Abdominal pain; Acute; Additional info: Abd pain - diffused TECHNIQUE: Imaging protocol: Computed tomography of the abdomen and pelvis with intravenous contrast. Radiation optimization: All CT scans at this facility use at least one of these dose optimization techniques: automated exposure control; mA and/or kV adjustment per patient size (includes targeted exams where dose is matched to clinical indication); or iterative reconstruction. Contrast material: OMNI 300; Contrast volume: 95 ml; Contrast route: IV; COMPARISON: CT abdomen pelvis w con* [id number] 06/28/2019 2:43 AM RADIATION DOSE METRICS: Total DLP: 958.68 mGy-cm FINDINGS: Mediastinal space: A small hiatal hernia is present. Liver: There is a diffuse decrease in hepatic parenchymal density, consistent with fatty infiltration. Gallbladder and bile ducts: There is no common bile duct dilation. The gallbladder is normal. Pancreas: There is mild peripancreatic inflammatory stranding and fluid, concerning for mild acute pancreatitis. Spleen: Normal. No splenomegaly. Adrenals: Normal. No mass. Kidneys and ureters: There is no evidence of hydronephrosis. There are multiple renal hypodensities that cannot be further characterized on the current examination. There is a 1.4 cm unchanged simple cyst in the left kidney. Stomach and bowel: There is no evidence of intestinal perforation or obstruction. Moderate diverticulosis is present in the distal colon. There is no evidence of colitis/diverticulitis. Appendix: A normal appendix is identified. Intraperitoneal space: Unremarkable. No free air. No significant fluid collection. Vasculature: There are numerous benign phleboliths in the pelvis. The aorta is normal in size. Previously visualized portal vein thrombus is no longer identified. The superior mesenteric vein is very small and caliber but there is a tiny filling defect in its center which may reflect some residual scarring or residual tiny thrombus decreased since the prior exam image 38. Lymph nodes: Unremarkable.No enlarged lymph nodes. Bladder: There is nonspecific bladder wall thickening. This may be related to incomplete distention. Reproductive: Unremarkable as visualized. Bones/joints: Unremarkable. No acute fracture. Soft tissues: There is a fat-containing umbilical hernia. Other findings: No pseudocyst. CT/CT abdomen pelvis w con* [id number] IMPRESSION: 1. There is mild peripancreatic inflammatory stranding and fluid, concerning for mild acute pancreatitis. This is less prominent than the prior exam. No pseudocyst. Improved appearance of the superior mesenteric vein thrombosis compared to the prior exam. No portal vein thrombosis. 2. There is a 1.4 cm unchanged simple cyst in the left kidney. No follow-up is necessary. Radiation Dose CTDIVOL = (mGy): DLP = 958.68 (mGy-cm)
[2019-07-22 15:42] VITALS: RESP 20
[2019-07-22] MEDS: HYDROmorphone 1 mg/mL INJ 1 mL IVP (15:42)
[2019-07-22] MEDS: ondansetron 2 mg/ML SDV 2 mL 4 MG IVP (15:43)
[2019-07-22] MEDS: sodium chloride 0.9% 1,000 ML 999 ML IV (15:44)
[2019-07-22 16:26] LABS: Basophils % 0.3 %; Eosinophils # 0.2 10^3/uL (0.0-0.8); Eosinophils % 1.7 %; Hematocrit 42.4 % (42.0-52.0); Hemoglobin 13.4 g/dL (11.7-16.6); Lymphocytes # 3.2 10^3/uL (0.8-4.8); Lymphocytes % 36.2 %; Mean Corpuscular HGB Conc 31.6 g/dL (30.0-36.0); Mean Corpuscular Hemoglobin 28.4 pg (28.0-34.0); Mean Corpuscular Volume 89.8 fL (80-94); Monocytes # 0.7 10^3/uL (0.2-0.9); Monocytes % 8.4 %; Neutrophils # 4.6 10^3/uL (1.8-7.7); Neutrophils % 53.2 %; Nucleated Red Blood Cells % 0 %; Platelet Count 358 10^3/cmm (130-400); Red Blood Count 4.72 10^6/uL (4.1-5.3); Red Cell Distribution Width 15.3 % (12.1-15.1); White Blood Count 8.7 10^3/uL (4.0-10.0)
[2019-07-22] MEDS: iohexol 300 mg/mL 100 mL Btl IV (17:47)
[2019-07-22 19:03] VITALS: BP 118/70; PULSE 91; RESP 18; O2SAT 98
== END 2019-07-22 19:06 | disposition home or self-care (01) ==
PROVIDERS: Emergency Provider Emergency Medicine; PCP Family Medicine
DX: K85.90 Acute pancreatitis without necrosis or infection, unspecified (principal); Z79.01 Long term (current) use of anticoagulants
CPT/HCPCS: 12345; 36415; 74177; 80053; 83690; 85025; 96361; 96374; 96375; 99282; 99283; 99284; J1170; J2405; J7030; Q9967

== ENCOUNTER 2019-08-13 18:40 | Emergency (ER) | payer SELFPAY ==
[2019-08-13 18:44] VITALS: BMI 27.3
[2019-08-13 18:46] VITALS: BP 124/74; PULSE 122; RESP 20; TEMP 36.6; O2SAT 99
--- NOTE | 2019-08-13 19:01 | CTR_ITS ---
PROCEDURE INFORMATION: Exam: CT Abdomen And Pelvis With Contrast Exam date and time: 08/13/2019 7:09 PM Age: 44 years old Clinical indication: Abdominal pain; Generalized TECHNIQUE: Imaging protocol: Computed tomography of the abdomen and pelvis with intravenous contrast. Radiation optimization: All CT scans at this facility use at least one of these dose optimization techniques: automated exposure control; mA and/or kV adjustment per patient size (includes targeted exams where dose is matched to clinical indication); or iterative reconstruction. Contrast material: OMNI 300; Contrast volume: 95 ml; Contrast route: INTRAVENOUS (IV); COMPARISON: CT abdomen pelvis w con* [id number] 07/22/2019 5:27 PM RADIATION DOSE METRICS: Total DLP (mGy-cm): 1118.37 FINDINGS: Liver: Marked diffuse fatty infiltration of the liver with mild hepatomegaly. Gallbladder and bile ducts: Gallbladder free of cholelithiasis. No visible intra or extrahepatic biliary ectasia. Pancreas: Improving pancreatitis. No pseudocyst formation. No visible pancreatic ductal ectasia. Spleen: Normal. No splenomegaly. Adrenals: Normal. No mass. Kidneys and ureters: Stable simple renal cortical cysts left kidney. No follow-up recommended. Tiny foci of nonobstructing calyceal nephrolithiasis equator right kidney under 2 mm. No hydronephrosis or perinephric fluid. Stomach and bowel: Small hiatal hernia. Diverticulosis coli without evidence for diverticulitis. Nonobstructive bowel pattern. Appendix: The appendix is noninflamed. Intraperitoneal space: Moderate panniculitis/mesenteritis without significant mesenteric lymphadenitis. This finding remains relatively stable. Vasculature: Portal vein patent. No visible superior mesenteric vein thrombosis Lymph nodes: Unremarkable. No enlarged lymph nodes. Bladder: Unremarkable as visualized. Reproductive: Unremarkable as visualized. Bones/joints: No visible active osseous pathology visible. Soft tissues: Unremarkable. CT/CT abdomen pelvis w con* [id number] IMPRESSION: 1. Improving low-grade pancreatitis. No pseudocyst formation. 2. Portal vein patent. No visible portal venous thrombosis. 3. Moderate panniculitis/mesenteritis without significant mesenteric lymphadenitis. 4. Diverticulosis coli without evidence for diverticulitis. 5. Stable small simple renal cortical cysts left kidney. No follow-up recommended. Radiation Dose CTDIVOL = (mGy): DLP = 1118.37 (mGy-cm)
--- NOTE | 2019-08-13 19:02 | US_ITS ---
WS: [id number] Complete ABDOMINAL ULTRASOUND HISTORY: Abdominal Pain COMPARISON: CT on 08/13/2019 Liver: 17.6 cm in length. Moderate hepatomegaly with severe hepatic steatosis. No bile duct dilatatio n or mass. Gallbladder: Normally distended with no gallstones, wall thickening or pericholecystic fluid. Gallbladder wall thickness: 0.2 cm. Pancreas: Not visualized. CBD: 0.3 cm. Right kidney: 11.2 cm x 4.8 cm x 5.5 cm. No mass, cortical thickening or hydronephrosis. Left kidney: 11.1 cm x 5.1 cm x 5.3 cm. No mass, cortical thickening or hydronephrosis. Spleen: Normal size and echogenicity. Abdominal aorta and IVC are within normal limits. No ascites. US/US abdomen complete* [id number] IMPRESSION: 1. Pancreas not visualized. 2. Moderate hepatomegaly with severe hepatic steatosis. 3. Negative gallbladder.
--- NOTE | 2019-08-13 19:04 | ED_ITS ---
HPI - Abdominal Pain General: Chief Complaint: Abdominal Pain Stated Complaint: abd pain/lower back pain Time Seen by Provider: 08/13/19 18:51 Source: patient and family Mode of arrival: ambulatory Limitations: no limitations History of Present Illness: HPI narrative: Mr. Elkins is a 44-year-old male who comes in complaining of abdominal pain. He states the pain is been present for 1 week. He states the pain is secondary to pancreatitis which she has had in the past. Patient states that it is unknown what causes this. He otherwise denies any medical problems such as gallbladder disease, hypertriglyceridemia or alcohol problems. Patient states he has tried following a clear liquid diet but despite this his pain has gotten worse, his abdomen is distended and he has vomited twice today. He is otherwise unaware of any aggravating or alleviating problems. He denies any fever, chills, urinary symptoms, diarrhea or blood in his stools or emesis. Associated Symptoms: Reports nausea and vomiting; Denies chills, coffee ground emesis, constipation, GI cramping, diarrhea, dysuria, fever(s), heartburn, hematochezia, hematuria, hematemesis, melena and syncope Review of Systems Const: Denies: fever(s), chills, body aches, fatigue, malaise or diaphoresis Eyes: Denies: change in vision, blurry vision, blind spots, photophobia, eye discharge or eye redness ENMT: Denies: throat pain, odynophagia, hoarseness, swelling of lips/tongue, oral sores, ear or mastoid pain, ear discharge, change in hearing or nasal discharge Card: Denies: chest pain, palpitations, irregular heart rhythm, edema, lightheadedness, syncope, pre-syncope, dyspnea on exertion or orthopnea Resp: Denies: dyspnea, productive cough, non-productive cough, wheezing, hemoptysis or chest congestion GI: Reports: abdominal pain, nausea and vomiting; Denies: hematemesis, coffee ground emesis, heartburn, diarrhea, constipation, GI cramping, hematochezia or melena : Denies: flank pain, dysuria, urinary frequency, urinary urgency or hematuria Musc: Denies: neck pain, back pain, extremity pain, extremity swelling, joint pain, joint swelling, joint redness, joint warmth or joint stiffness Skin/Breast: Denies: rash, pruritus, erythema, skin tenderness or jaundice Neuro: Denies: headache(s), numbness in extremities, weakness in extremities, sensory changes, lack of coordination, difficulty walking, dizziness, vertigo, confusion, Slurred speech present or seizure-like activity Arnav/Lymph: Denies: easy bruising, easy bleeding, petechiae, purpura or enlarged lymph nodes All/Imm: Denies: urticaria, throat swelling, tongue swelling, facial swelling or acute wheezing PFSH ED PFSH: Medical History Portal vein thrombosis -Had initially been seen on CT abdomen and pelvis done on 05/08/2019 during which time he was noted to have acute thrombosis involving the portal vein, superior mesenteric vein and distal mesenteric branches, hepatic steatosis, extensive mesenteric stranding and congestion, early ischemic changes in the left small bowel with no perforation. Patient was then transferred to [facility] in [place] where he was anticoagulated initially with IV heparin and then discharged on 7 days of Lovenox and has since been taking Eliquis. -Review of records obtained from [facility] show normal AFP (3.4), negative hypercoagulability work-up including factor V Leiden mutation though was found to have slightly elevated serum homocysteine at 18. MRI of the abdomen with and without contrast with extensive non-occlusive thrombosis within portal venous tree with involvement of portal venous confluence and branches of superior mesenteric vein, marked fatty liver infiltration, sludge within the gallbladder lumen. Copy of records in paper chart -Unclear etiology as no prior liver pathology and workup relatively unrevealing -Seen by Dr. 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 -as noted above Social History Smoking and tobacco status: never smoked Alcohol intake: current Physical Exam Const: COMMON NORMALS: no acute distress, patient oriented x3, no limitations, healthy appearing and well nourished GENERAL APPEARANCE: cooperative, well kempt and well developed HENMT: COMMON NORMALS: normocephalic, atraumatic, external ears normal, EAC's normal and Normal external nose present HEAD & SCALP: normal to inspection, normocephalic and atraumatic FACE & SINUS: normal facial exam and face symmetric NOSE: Normal external nose present and Normal nares present EXTERNAL EAR: Yes external ears normal EXTERNAL AUDITORY CANAL: EAC's normal MOUTH: Normal oral and palatal mucosa present, lip normal and tongue normal Eye: COMMON NORMALS: Equal, round and reactive pupils present and conjunctivae normal GENERAL EYE: appearance normal, both eyes and all related structures ALIGNMENT: Yes alignment normal PERIORBITAL: periorbital findings normal EYELID: eyelids normal CONJUNCTIVA: Yes conjunctivae normal SCLERA: sclerae normal PUPIL: Yes Equal, round and reactive pupils present Neck/C-Spine: COMMON NORMALS: full ROM, no lymphadenopathy, supple, no meningeal signs and no JVD GENERAL: Yes normal visual inspection and Yes trachea midline Chest: COMMONS NORMALS: normal inspection of the chest and normal palpation of entire chest wall Resp: COMMON NORMALS: normal respiratory effort, No retractions and No use of accessory muscles EFFORT & INSPECTION: Yes able to speak in complete sentences and Yes symmetric chest movement AUSCULTATION: no crackles, no rales, no rhonchi and no wheezes Cardio: COMMON NORMALS: no JVD, regular rate, regular rhythm, S1 normal heart sound present and S2 normal heart sound present RATE: regular rate RHYTHM: regular rhythm HEART SOUNDS: S1 normal heart sound present, S2 normal heart sound present, no click, no gallops, no murmurs, no rubs and abnormal split S2 GI: COMMON NORMALS: Soft to palpation and No hepatosplenomegaly present PALPATION: Yes Soft to palpation, Yes Tenderness to palpation present (GI) (Mild to moderate diffusely), No Guarding due to palpation present (GI), No Rigid due to palpation, Yes No hepatosplenomegaly present, No Hernia present, No Palpable mass present and No Pulsatile mass present : COMMON NORMALS: Yes no CVA tenderness BLADDER/KIDNEY EXAM: Yes no CVA tenderness Back/Pelvis: COMMON NORMALS: no CVA tenderness, thoracic and lumbar spine normal to inspection, no thoracic nor lumbar tenderness and thoraco-lumbar ROM normal Extremity: COMMON NORMALS: normal to inspection, full ROM, capillary refill normal, no joint enlargement, no clubbing, cyanosis or edema and no calf tenderness Neuro: COMMON NORMALS: patient oriented x3, CN's II-XII intact bilaterally, moves all extremities, no focal motor deficits and no sensory deficits noted MENINGEAL SIGNS: Yes no meningeal signs SPEECH: speech normal Psych: COMMON NORMALS: mental status grossly normal, Normal thought process present, cooperative, normal affect, speech normal and activity/motor behavior normal APPEARANCE: Yes well kempt SPEECH: Yes normal speech THOUGHT PROCESS: Normal thought process present Skin: COMMON NORMALS: no rashes or lesions noted, turgor normal, no jaundice, no petechiae and no mottling GENERAL SKIN EXAM: no rashes or lesions noted and turgor normal Course ED course: 2037 -patient's is shared with the nurse that the patient is not being honest that he drinks alcohol daily. I am going to repeat the patient's CT as an Angio of this time as he has a slightly elevated lactate although I do not suspect mesenteric ischemia. I want to definitively rule this out with this study and a repeat lactate. Vital Signs: Vital signs: Vital Signs Temperature 98.1 F 08/13/19 22:43 Pulse Rate 82 08/13/19 22:43 Respiratory Rate 18 08/13/19 22:43 Blood Pressure 136/88 08/13/19 22:43 Pulse Oximetry 100 08/13/19 22:43 MDM - Abdominal Pain MDM Narrative: Medical decision making narrative: 2229 -the patient is feeling better. He is up and laughing and joking and has had some water to drink here in the department. He has not vomited. He admits that he has had some alcohol and that is likely what has exacerbated his pain. There is no evidence of any vascular compromise and the patient never did appear to have mesenteric ischemia clinically. Repeat lactate is 1.3. The patient wants to go home at this time so I will send him home with pain medicine, nausea medicine and I have reviewed the entire case with Dr. Lentz. I did review the case with her in its entire ty. She is going to recheck the patient in the clinic tomorrow or the next day and will also discuss with him alcohol cessation plans. Patient understands this and he plans to follow-up to get this help. He denies having any other questions or concerns. He agrees to return should his symptoms change or worsen at all. Lab Data: Attestation: I reviewed the patient's lab results. Labs: Lab Results 08/13/19 08/13/19 08/13/19 Range/Units 19:00 19:00 19:00 WBC 8.0 (4.0-10.0) 10^3/ uL RBC 4.88 (4.1-5.3) 10^6/u L Hgb 13.3 (11.7-16.6) g/dL Hct 42.5 (42.0-52.0) % MCV 87.1 (80-94) fL MCH 27.3 L (28.0-34.0) pg MCHC 31.3 (30.0-36.0) g/dL RDW 15.9 H (12.1-15.1) % Plt Count 474 H (130-400) 10^3/c mm MPV 9.6 (7.4-10.4) fL Neut % (Auto) 46.4 % Lymph % (Auto) 41.2 % Crowley % (Auto) 9.6 % Eos % (Auto) 2.5 % Baso % (Auto) 0.2 % Neut # (Auto) 3.7 (1.8-7.7) 10^3/u L Lymph # (Auto) 3.3 (0.8-4.8) 10^3/u L Crowley # (Auto) 0.8 (0.2-0.9) 10^3/u L Eos # (Auto) 0.2 (0.0-0.8) 10^3/u L Baso # (Auto) 0.0 (0.0-0.1) 10^3/u L Nucleated RBC % (a uto) 0 % Nucleated RBCs # 0.0 /100WBC Sodium 139 (136-145) mmol/L Potassium 3.1 L (3.5-5.1) mmol/L Chloride 102 (98-107) mmol/L Carbon Dioxide 21 L (22-29) mmol/L Anion Gap 19.1 H (5-19) BUN 5 L (6-20) mg/dL Creatinine 0.8 (0.7-1.2) mg/dL GFR Calculation 105.5 (90-130) mL/min Glucose 106 (65-115) mg/dL Calculated Osmolal ity 284 L (285-295) mOsm/k g Lactic Acid 2.7 H (0.5-2.2) mmol/L Lactic Acid (Sepsi s) (0.5-2.2) mmol/L Calcium 9.4 (8.5-10.5) mg/dL Magnesium (1.7-2.3) mg/dL Total Bilirubin 0.7 (0.15-1.2) mg/dL AST 49 H (0-40) U/L ALT 47 H (0-41) U/L Alkaline Phosphata se 107 (40-130) IU/L Total Protein 7.6 (6.6-8.7) g/dL Albumin 4.4 (3.5-5.2) g/dL Globulin 3.2 (1.3-4.6) g/dL Lipase 549 H (13-60) U/L Ethyl Alcohol (0-10) mg/dL 08/13/19 08/13/19 Range/Units 19:00 21:30 WBC (4.0-10.0) 10^3/ uL RBC (4.1-5.3) 10^6/u L Hgb (11.7-16.6) g/dL Hct (42.0-52.0) % MCV (80-94) fL MCH (28.0-34.0) pg MCHC (30.0-36.0) g/dL RDW (12.1-15.1) % Plt Count (130-400) 10^3/c mm MPV (7.4-10.4) fL Neut % (Auto) % Lymph % (Auto) % Crowley % (Auto) % Eos % (Auto) % Baso % (Auto) % Neut # (Auto) (1.8-7.7) 10^3/u L Lymph # (Auto) (0.8-4.8) 10^3/u L Crowley # (Auto) (0.2-0.9) 10^3/u L Eos # (Auto) (0.0-0.8) 10^3/u L Baso # (Auto) (0.0-0.1) 10^3/u L Nucleated RBC % (a uto) % Nucleated RBCs # /100WBC Sodium (136-145) mmol/L Potassium (3.5-5.1) mmol/L Chloride (98-107) mmol/L Carbon Dioxide (22-29) mmol/L Anion Gap (5-19) BUN (6-20) mg/dL Creatinine (0.7-1.2) mg/dL GFR Calculation (90-130) mL/min Glucose (65-115) mg/dL Calculated Osmolal ity (285-295) mOsm/k g Lactic Acid (0.5-2.2) mmol/L Lactic Acid (Sepsi s) 1.3 (0.5-2.2) mmol/L Calcium (8.5-10.5) mg/dL Magnesium 1.9 (1.7-2.3) mg/dL Total Bilirubin (0.15-1.2) mg/dL AST (0-40) U/L ALT (0-41) U/L Alkaline Phosphata se (40-130) IU/L Total Protein (6.6-8.7) g/dL Albumin (3.5-5.2) g/dL Globulin (1.3-4.6) g/dL Lipase (13-60) U/L Ethyl Alcohol 38 H (0-10) mg/dL Imaging Data ^: US: My impression: Ultrasound abdomen, tech interpretation -fatty liver otherwise unremarkable. CT Abd/Pel: Radiologist's impression: [place] [address] CT Scan Report Signed Patient: Devaughn Elkins Unit #: [id number] : 1975 Age/Sex: 44 / M ADM Date: 08/13/19 Loc: ER Room/Bed: Attending Dr: Ordering Provider/Ordering MD: Gisella Aj DO Date of Service: 08/13/19 Procedure(s): CT abdomen pelvis w con* [id number] Accession Number(s): [id number] Report Number: [id number] PROCEDURE INFORMATION: Exam: CT Abdomen And Pelvis With Contrast Exam date and time: 08/13/2019 7:09 PM Age: 44 years old Clinical indication: Abdominal pain; Generalized TECHNIQUE: Imaging protocol: Computed tomography of the abdomen and pelvis with intravenous contrast. Radiation optimization: All CT scans at this facility use at least one of these dose optimization techniques: automated exposure control; mA and/or kV adjustment per patient size (includes targeted exams where dose is matched to clinical indication); or iterative reconstruction. Contrast material: OMNI 300; Contrast volume: 95 ml; Contrast route: INTRAVENOUS (IV); COMPARISON: CT abdomen pelvis w con* [id number] 07/22/2019 5:27 PM RADIATION DOSE METRICS: Total DLP (mGy-cm): 1118.37 FINDINGS: Liver: Marked diffuse fatty infiltration of the liver with mild hepatomegaly. Gallbladder and bile ducts: Gallbladder free of cholelithiasis. No visible intra or extrahepatic biliary ectasia. Pancreas: Improving pancreatitis. No pseudocyst formation. No visible pancreatic ductal ectasia. Spleen: Normal. No splenomegaly. Adrenals: Normal. No mass. Kidneys and ureters: Stable simple renal cortical cysts left kidney. No follow-up recommended. Tiny foci of nonobstructing calyceal nephrolithiasis equator right kidney under 2 mm. No hydronephrosis or perinephric fluid. Stomach and bowel: Small hiatal hernia. Diverticulosis coli without evidence for diverticulitis. Nonobstructive bowel pattern. Appendix: The appendix is noninflamed. Intraperitoneal space: Moderate panniculitis/mesenteritis without significant mesenteric lymphadenitis. This finding remains relatively stable. Vasculature: Portal vein patent. No visible superior mesenteric vein thrombosis Lymph nodes: Unremarkable. No enlarged lymph nodes. Bladder: Unremarkable as visualized. Reproductive: Unremarkable as visualized. Bones/joints: No visible active osseous pathology visible. Soft tissues: Unremarkable. CT/CT abdomen pelvis w con* [id number] IMPRESSION: 1. Improving low-grade pancreatitis. No pseudocyst formation. 2. Portal vein patent. No visible portal venous thrombosis. 3. Moderate panniculitis/mesenteritis without significant mesenteric lymphadenitis. 4. Diverticulosis coli without evidence for diverticulitis. 5. Stable small simple renal cortical cysts left kidney. No follow-up recommended. Radiation Dose CTDIVOL = (mGy): DLP = 1118.37 (mGy-cm) Dictated By: Roque Swan Signed By: Roque Swan Signed Date/Time: 08/13/192023 DD/ 21 CTA Abdomen/Pelvis: Radiologist's impression: [address] [address] [address] Scan Report Signed Patient: Devaughn Elkins Unit #: [id number] : 1975 Age/Sex: 44 / M ADM Date: 08/13/19 Loc: ER Room/Bed: Attending Dr: Ordering Provider/Ordering MD: Gisella Aj DO Date of Service: 08/13/19 Procedure(s): CT angio abdomen pelvis 28228 Accession Number(s): [id number] Report Number: [id number] PROCEDURE INFORMATION: Exam: CT Angiography Abdomen and Pelvis With Contrast Exam date and time: 08/13/2019 8:45 PM Age: 44 years old Clinical indication: Abdominal pain; Acute TECHNIQUE: Imaging protocol: Computed tomographic angiography of the abdomen and pelvis with intravenous contrast material. 3D rendering: MIP and/or 3D reconstructed images were created by the technologist. Radiation optimization: All CT scans at this facility use at least one of these dose optimization techniques: automated exposure control; mA and/or kV adjustment per patient size (includes targeted exams where dose is matched to clinical indication); or iterative reconstruction. Contrast material: OMNI 350; Contrast volume: 95 ml; Contrast route: INTRAVENOUS (IV); COMPARISON: CT abdomen pelvis w con* [id number] 08/13/2019 7:47 PM RADIATION DOSE METRICS: Total DLP (mGy-cm): 1251.54 FINDINGS: Aorta: No aortic aneurysm. No aortic dissection. Celiac trunk and mesenteric arteries: No occlusion or significant stenosis. Renal arteries: No occlusion or significant stenosis. Right iliac arteries: No occlusion or significant stenosis. Left iliac arteries: No occlusion or significant stenosis. Liver: Marked diffuse fatty infiltration of the liver with mild hepatomegaly. Gallbladder and bile ducts: Gallbladder free of cholelithiasis. No visible intra or extrahepatic biliary ectasia. Pancreas: Improving pancreatitis. Spleen: Unremarkable. No splenomegaly. Adrenals: Unremarkable. No mass. Kidneys and ureters: Stable simple renal cortical cysts left kidney. No follow-up recommended. Tiny foci of nonobstructing calyceal nephrolithiasis equator right kidney under 2 mm. No hydronephrosis or perinephric fluid. Stomach and bowel: Small hiatal hernia. Diverticulosis coli without evidence for diverticulitis. Appendix: No evidence of appendicitis. Intraperitoneal space: Moderate panniculitis/mesenteritis without significant mesenteric lymphadenitis. This finding remains relatively stable since prior examinations. Lymph nodes: Unremarkable. No enlarged lymph nodes. Bladder: Unremarkable. No mass. Reproductive: Unremarkable as visualized. Bones/joints: No visible active osseous pathology. Soft tissues: Unremarkable. CT/CT angio abdomen pelvis [id number] IMPRESSION: 1. Please review CT abdomen and pelvis examination report of same date acquired 7:50 p.m. 2. No visible aortic dissection, intimal flap, or occlusion. 3. No visible acute vascular compromise. Radiation Dose CTDIVOL = (mGy): DLP = 1251.54 (mGy-cm) Dictated By: Roque Swan Signed By: Roque Swan Signed Date/Time: 08/13/192119 DD/ 18 Discharge Plan Discharge Patient Disposition: Home, Self-Care Clinical Impression: Pancreatitis Qualifiers: Chronicity: acute Pancreatitis type: alcohol induced Acute pancreatitis complication: no infection or necrosis Qualified Code(s): K85.20 - Alcohol induced acute pancreatitis without necrosis or infection Condition: Stable Prescriptions: [place] 5-325 mg tablet 1 tab PO Q6H PRN (Reason: pain) 5 Days Qty: 12 RF: 0 Zofran 4 mg tablet 4 mg PO Q6H PRN (Reason: nausea and vomiting) Qty: 20 RF: 0 No Action acetaminophen [Tylenol Extra Strength] 500 mg Tablet 1,000 mg PO PRN RF: 0 Eliquis 5 mg Tablet 5 mg PO BID RF: 0 Discharge Orders: Discharge Order (Routine); Ordered 08/13/19 Ordered By: Gisella Aj Referrals: Sandra Lentz MD [Primary Care Provider] - Discharge Diet: Clear Liquid Discharge Activity: Limit activity as instructed Patient Instructions: Pancreatitis (ED) Activity Restrictions/Additional Instructions: Please return to the ER immediately for any of the signs or symptoms listed on your discharge instruction sheets, worsening/changing of your symptoms, you are not getting better as quickly as expected, or for ANY other cause or concerns. Follow a clear liquid diet and do not drink any alcohol until instructed further by Dr. Lentz in the clinic. I have reviewed the case in full with Dr. Lentz by phone and she has assured me that she or someone in her clinic will see you in the next 1 to 2 days. Be certain that you follow these instructions and follow-up with her. Return to the ER for increased pain, fever, vomiting, or for any other cause for concern. Discharge Date/Time: 08/13/19 22:46 Coding Level of Care Code ED Benefits Administrator for Chg Fwd Exam Comprehensive
[2019-08-13 19:10] LABS: Basophils % 0.2 %; Eosinophils # 0.2 10^3/uL (0.0-0.8); Eosinophils % 2.5 %; Hematocrit 42.5 % (42.0-52.0); Hemoglobin 13.3 g/dL (11.7-16.6); Lymphocytes # 3.3 10^3/uL (0.8-4.8); Lymphocytes % 41.2 %; Mean Corpuscular HGB Conc 31.3 g/dL (30.0-36.0); Mean Corpuscular Hemoglobin 27.3 pg (28.0-34.0); Mean Corpuscular Volume 87.1 fL (80-94); Mean Platelet Volume 9.6 fL (7.4-10.4); Monocytes # 0.8 10^3/uL (0.2-0.9); Monocytes % 9.6 %; Neutrophils # 3.7 10^3/uL (1.8-7.7); Neutrophils % 46.4 %; Nucleated Red Blood Cells % 0 %; Platelet Count 474 10^3/cmm (130-400); Red Blood Count 4.88 10^6/uL (4.1-5.3); Red Cell Distribution Width 15.9 % (12.1-15.1)
--- NOTE | 2019-08-13 19:20 | ECG_ITS ---
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 Measurements Intervals [place] Rate: 99 P: 72 MA: 160 QRS: 71 QRSD: 94 T: 78 QT: 337 QTc: 434 Interpretive Statements SINUS RHYTHM No previous ECG available for comparison Electronically Signed On 08-15-2019 17:13:41 CDT by Nadja Reed M.D. [id number] [email or web address]
[2019-08-13 19:23] VITALS: RESP 20
[2019-08-13] MEDS: morphine 4 mg/mL SDV 1 mL IVP ×2 (19:23→21:23)
[2019-08-13 19:26] LABS: Alanine Aminotransferase 47 U/L (0-41); Albumin Level 4.4 g/dL (3.5-5.2); Alkaline Phosphatase 107 IU/L (40-130); Anion Gap 19.1 (5-19); Aspartate Amino Transferase 49 U/L (0-40); Blood Urea Nitrogen 5 mg/dL (6-20); Calcium 9.4 mg/dL (8.5-10.5); Carbon Dioxide 21 mmol/L (22-29); Chloride 102 mmol/L (98-107); Globulin 3.2 g/dL (1.3-4.6); Glomerular Filtration Rate 105.5 mL/min (90-130); Glucose 106 mg/dL (65-115); Osmolality Calculated 284 mOsm/kg (285-295); Potassium 3.1 mmol/L (3.5-5.1); Sodium 139 mmol/L (136-145); Total Bilirubin 0.7 mg/dL (0.15-1.2); Total Protein 7.6 g/dL (6.6-8.7)
[2019-08-13] MEDS: sodium chloride 0.9% 1,000 ML 999 ML IV (19:28)
[2019-08-13] MEDS: metoclopramide 5 mg/mL SDV 2 mL 10 MG IV (19:38)
[2019-08-13] MEDS: diphenhydrAMINE 50 mg/mL SDV 1mL IVP (19:43)
[2019-08-13 19:46] LABS: Lipase 549 U/L (13-60)
[2019-08-13 19:57] LABS: Lactic Sepsis W/Reflex 2.7 mmol/L (0.5-2.2)
[2019-08-13] MEDS: iohexol 300 mg/mL 100 mL Btl IV (20:04)
[2019-08-13] MEDS: pantoprazole 40 mg SDV 80 MG IVP (20:17)
[2019-08-13] MEDS: sodium chloride 0.9% 1,000 ML 100 ML IV (20:22)
--- NOTE | 2019-08-13 20:35 | CTR_ITS ---
PROCEDURE INFORMATION: Exam: CT Angiography Abdomen and Pelvis With Contrast Exam date and time: 08/13/2019 8:45 PM Age: 44 years old Clinical indication: Abdominal pain; Acute TECHNIQUE: Imaging protocol: Computed tomographic angiography of the abdomen and pelvis with intravenous contrast material. 3D rendering: MIP and/or 3D reconstructed images were created by the technologist. Radiation optimization: All CT scans at this facility use at least one of these dose optimization techniques: automated exposure control; mA and/or kV adjustment per patient size (includes targeted exams where dose is matched to clinical indication); or iterative reconstruction. Contrast material: OMNI 350; Contrast volume: 95 ml; Contrast route: INTRAVENOUS (IV); COMPARISON: CT abdomen pelvis w con* [id number] 08/13/2019 7:47 PM RADIATION DOSE METRICS: Total DLP (mGy-cm): 1251.54 FINDINGS: Aorta: No aortic aneurysm. No aortic dissection. Celiac trunk and mesenteric arteries: No occlusion or significant stenosis. Renal arteries: No occlusion or significant stenosis. Right iliac arteries: No occlusion or significant stenosis. Left iliac arteries: No occlusion or significant stenosis. Liver: Marked diffuse fatty infiltration of the liver with mild hepatomegaly. Gallbladder and bile ducts: Gallbladder free of cholelithiasis. No visible intra or extrahepatic biliary ectasia. Pancreas: Improving pancreatitis. Spleen: Unremarkable. No splenomegaly. Adrenals: Unremarkable. No mass. Kidneys and ureters: Stable simple renal cortical cysts left kidney. No follow-up recommended. Tiny foci of nonobstructing calyceal nephrolithiasis equator right kidney under 2 mm. No hydronephrosis or perinephric fluid. Stomach and bowel: Small hiatal hernia. Diverticulosis coli without evidence for diverticulitis. Appendix: No evidence of appendicitis. Intraperitoneal space: Moderate panniculitis/mesenteritis without significant mesenteric lymphadenitis. This finding remains relatively stable since prior examinations. Lymph nodes: Unremarkable. No enlarged lymph nodes. Bladder: Unremarkable. No mass. Reproductive: Unremarkable as visualized. Bones/joints: No visible active osseous pathology. Soft tissues: Unremarkable. CT/CT angio abdomen pelvis [id number] IMPRESSION: 1. Please review CT abdomen and pelvis examination report of same date acquired 7:50 p.m. 2. No visible aortic dissection, intimal flap, or occlusion. 3. No visible acute vascular compromise. Radiation Dose CTDIVOL = (mGy): DLP = 1251.54 (mGy-cm)
[2019-08-13] MEDS: iohexol 350 mg/mL 100 mL Btl IV (20:57)
[2019-08-13 21:19] LABS: Reflex Lactate Order REFLEX LACTIC ORDERD
[2019-08-13 21:21] VITALS: BP 130/94; PULSE 90; RESP 18; O2SAT 100
[2019-08-13 21:23] VITALS: RESP 18
[2019-08-13 22:00] LABS: Alcohol Level 38 mg/dL (0-10); Magnesium 1.9 mg/dL (1.7-2.3)
[2019-08-13 22:02] LABS: Lactic Acid level (Lactate) 1.3 mmol/L (0.5-2.2)
[2019-08-13 22:43] VITALS: BP 136/88; PULSE 82; RESP 18; TEMP 36.7; O2SAT 100
== END 2019-08-13 22:46 | disposition home or self-care (01) ==
PROVIDERS: Emergency Medicine; Emergency Provider Emergency Medicine; PCP Family Medicine
DX: K85.20 Alcohol induced acute pancreatitis without necrosis or infection (principal); Z79.01 Long term (current) use of anticoagulants
CPT/HCPCS: 12345; 36415; 74174; 74177; 76700; 80053; 80307; 83605; 83690; 83735; 85025; 93005; 96365; 96366; 96375; 96376; 99283; 99284; C9113; J1200; J2270; J2765; J3480; J7030; Q9967

== ENCOUNTER 2019-11-01 16:00 | Inpatient (IN) | payer SELFPAY ==
[2019-11-01 16:06] VITALS: BP 131/71; PULSE 97; RESP 16; TEMP 36.6; O2SAT 98; BMI 26.9
--- NOTE | 2019-11-01 16:13 | CTR_ITS ---
PROCEDURE INFORMATION: Exam: CT Abdomen And Pelvis With Contrast Exam date and time: 11/01/2019 4:36 PM Age: 44 years old Clinical indication: Abdominal pain; Localized; Patient HX: C/O upper abd pain w n/v HX of chronic pancreatitis w portal and smv thrombosis TECHNIQUE: Imaging protocol: Computed tomography of the abdomen and pelvis with intravenous contrast. Radiation optimization: All CT scans at this facility use at least one of these dose optimization techniques: automated exposure control; mA and/or kV adjustment per patient size (includes targeted exams where dose is matched to clinical indication); or iterative reconstruction. Contrast material: OMNI 300; Contrast volume: 95 ml; Contrast route: INTRAVENOUS (IV); COMPARISON: CT abdomen pelvis w con* [id number] 08/13/2019 7:47 PM RADIATION DOSE METRICS: Total DLP (mGy-cm): 868.77 FINDINGS: Liver: Diffuse fatty infiltration of the liver. Gallbladder and bile ducts: Normal. No calcified stones. No ductal dilation. Pancreas: New 1.8 cm oval cystic lesion in the pancreatic head. Diffuse edema of the pancreas. Significant peripancreatic fat stranding and fluid extending into the left upper peritoneal cavity and along the left pericolic gutter. No organized fluid collection. Spleen: Normal. No splenomegaly. Adrenals: Normal. No mass. Kidneys and ureters: Likely benign cyst in the left kidney, Hounsfield units less than 20. No follow-up recommended. The right kidney is normal. Stomach and bowel: Diverticulosis of the distal colon without diverticulitis. Appendix: No evidence of appendicitis. Intraperitoneal space: Mild pelvic ascites. No free peritoneal air. Vasculature: 1.2 cm hypodensity at the origin of the main portal vein. No abdominal aortic aneurysm. Lymph nodes: Unremarkable. No enlarged lymph nodes. Urinary bladder: Unremarkable as visualized. Reproductive: Unremarkable as visualized. Bones/joints: Unremarkable. No acute fracture. Soft tissues: Unremarkable. CT/CT abdomen pelvis w con* [id number] IMPRESSION: 1. Acute interstitial edematous pancreatitis with significant peripancreatic fat stranding and fluid which extends into the peritoneal cavity and left pericolic gutter. 2. New 1.8 cm cystic lesion in the pancreatic head most likely represents a pseudocyst given patient's history of prior pancreatitis. 3. 1.2 cm hypodensity at the origin of the main portal vein is most likely a partial thrombus. COMMENTS: Consistent with the [employer]'s Incidental Findings Committee white paper (J Am Blanca Radiol 2018): Any incidental renal lesion less than 1 cm or classified as too small to characterize, or any incidental cystic renal lesion characterized as simple-appearing, is likely benign. No follow-up imaging is recommended for these lesions per consensus recommendations based on imaging criteria. Radiation Dose CTDIVOL = (mGy): DLP = 868.77 (mGy-cm)
--- NOTE | 2019-11-01 16:13 | XR_ITS ---
WS: [id number] Portable AP upright chest, 11/01/2019 Clinical Data: dyspnea/cough Comparison: None. Findings: No nodules, masses or effusions are seen. The heart is normal. The pulmonary vascularity is not increased. No pneumonia or pneumothorax is seen. XR/XR chest 1V portable [id number] Impression: Negative chest.
--- NOTE | 2019-11-01 16:37 | ED_ITS ---
HPI - Abdominal Pain General: Chief Complaint: Abdominal Pain Stated Complaint: n/v/ abdominal pain Time Seen by Provider: 11/01/19 16:12 History of Present Illness: HPI narrative: 44 mechanically abdominal pain left upper quadrant pain radiating to the back.. Patient has a history of chronic recurrent pancreatitis he states he last drank about 2 weeks ago he also has a portal vein thrombosis for which he is on Eliquis. He denies any hematochezia melena hematemesis or coffee-ground emesis denies any dysuria urgency frequency has had repeated episodes of pancreatitis in the past. MD elicited complaint: abdominal pain Pertinent past history: other (Recurrent pancreatitis) Onset (ago): day(s) Pain Consistency: constant Location: LUQ Severity: severe Quality: cramping Radiation: back Migration to: no migration Exacerbating factors: eating, vomiting and movement Relieving factors: rest Context: other (Chronic recurrent pancreatitis) Associated Symptoms: Reports anorexia, bloating, GI cramping, nausea and poor appetite; Denies change in bowel habits, change in stool character, chills, coffee ground emesis, constipation, diarrhea, dyspepsia, dysuria, fever(s), heartburn, hematochezia, hematuria, hematemesis, fecal incontinence, loose stools, melena, syncope and vomiting Review of Systems Const: Denies: fever(s) or chills ENMT: Denies: throat pain, ear or mastoid pain, nasal discharge or nasal congestion Card: Denies: syncope Resp: Denies: dyspnea, productive cough or non-productive cough GI: Reports: nausea, bloating and GI cramping; Denies: vomiting, hematemesis, coffee ground emesis, heartburn, diarrhea, constipation, fecal incontinence, change in bowel habits, change in stool anna cter, hematochezia or melena : Denies: dysuria or hematuria Skin/Breast: Denies: rash or pruritus PFSH ED PFSH: Medical History Hiatal hernia Nephrolithiasis Portal vein thrombosis -Had initially been seen on CT abdomen and pelvis done on 05/08/2019 during which time he was noted to have acute thrombosis involving the portal vein, superior mesenteric vein and distal mesenteric branches, hepatic steatosis, extensive mesenteric stranding and congestion, early ischemic changes in the left small bowel with no perforation. Patient was then transferred to [facility] in [place] where he was anticoagulated initially with IV heparin and then discharged on 7 days of Lovenox and has since been taking Eliquis. -Review of records obtained from [facility] show normal AFP (3.4), negative hypercoagulability work-up including factor V Leiden mutation though was found to have slightly elevated serum homocysteine at 18. MRI of the abdomen with and without contrast with extensive non-occlusive thrombosis within portal venous tree with involvement of portal venous confluence and branches of superior mesenteric vein, marked fatty liver infiltration, sludge within the gallbladder lumen. Copy of records in paper chart -Unclear etiology as no prior liver pathology and workup relatively unrevealing -Seen by Dr. Gonzales on 06/03 PUD (peptic ulcer disease) Superior mesenteric vein thrombosis -Appears unchanged on imaging -as noted above Surgical History History of esophagogastroduodenoscopy (EGD) Family History Brother Cancer Pancreatic cancer? Social History Smoking and tobacco status: never smoked Alcohol intake: current Alcohol type: hard liquor Alcohol use comment: heavy etoh user Substance/Drug Use: never Marital status: Physical Exam Const: COMMON NORMALS: no acute distress GENERAL APPEARANCE: cooperative and comfortable ORIENTATION/CONSCIOUSNESS: Yes awake, Yes oriented to person, Yes oriented to place and Yes oriented to time HENMT: COMMON NORMALS: normocephalic, atraumatic and hearing grossly normal bilaterally HEAD & SCALP: normocephalic and atraumatic Eye: COMMON NORMALS: Equal, round and reactive pupils present, EOMs intact bilaterally, conjunctivae normal and no scleral icterus CONJUNCTIVA: Yes conjunctivae normal PUPIL: Yes Equal, round and reactive pupils present Neck/C-Spine: COMMON NORMALS: full ROM, no lymphadenopathy, supple and no JVD Lymph: LYMPHATIC: no lymphadenopathy noted and no lymphedema noted Resp: COMMON NORMALS: normal respiratory effort, No retractions, No use of accessory muscles and clear to auscultation bilaterally AUSCULTATION: clear to auscultation bilaterally Cardio: COMMON NORMALS: no JVD, regular rate, regular rhythm and No murmurs present (Cardio) RATE: regular rate RHYTHM: regular rhythm GI: COMMON NORMALS: Soft to palpation and No hepatosplenomegaly present AUSCULTATION: Yes normoactive bowel sounds PALPATION: Yes Soft to palpation, No Tenderness to palpation present (GI), No Guarding due to palpation present (GI) and Yes No hepatosplenomegaly present Extremity: COMMON NORMALS: normal to inspection, capillary refill normal, no clubbing, cyanosis or edema, no calf tenderness and no pedal edema Neuro: SENSORIUM/ORIENTATION: Yes oriented to person, Yes oriented to place and Yes oriented to time Skin: COMMON NORMALS: no rashes or lesions noted GENERAL SKIN EXAM: no rashes or lesions noted Course Vital Signs: Vital signs: Vital Signs Temperature 98.4 F 11/03/19 15:52 Pulse Rate 101 H 11/03/19 15:52 Respiratory Rate 22 H 11/03/19 15:52 Blood Pressure 132/84 11/03/19 15:52 Pulse Oximetry 98 11/03/19 15:52 MDM - Abdominal Pain MDM Narrative: Medical decision making narrative: Lipase elevated CT shows pancreatitis. Will admit for IV fluids and support. Lab Data: Labs: Lab Results 11/01/19 11/01/19 11/01/19 Range/Units 16:46 16:46 16:46 WBC 14.0 H (4.0-10.0) 10^3/ uL RBC 4.53 (4.1-5.3) 10^6/u L Hgb 12.4 (11.7-16.6) g/dL Hct 39.3 L (42.0-52.0) % MCV 86.8 (80-94) fL MCH 27.4 L (28.0-34.0) pg MCHC 31.6 (30.0-36.0) g/dL RDW 18.2 H (12.1-15.1) % Plt Count 378 (130-400) 10^3/c mm MPV 10.0 (7.4-10.4) fL Neut % (Auto) 82.2 % Lymph % (Auto) 11.5 % Metcalfe % (Auto) 5.8 % Eos % (Auto) 0.0 % Baso % (Auto) 0.1 % Neut # (Auto) 11.50 H (1.8-7.7) 10^3/u L Lymph # (Auto) 1.6 (0.8-4.8) 10^3/u L Metcalfe # (Auto) 0.8 (0.2-0.9) 10^3/u L Eos # (Auto) 0.0 (0.0-0.8) 10^3/u L Baso # (Auto) 0.0 (0.0-0.1) 10^3/u L Nucleated RBC % (a uto) 0 % Nucleated RBCs # 0.0 /100WBC PT 14.50 (12.1-14.9) SECO NDS INR 1.10 (0.8-1.2) APTT 25.8 (23.9-36.7) SECO NDS Sodium 136 (136-145) mmol/L Potassium 3.2 L (3.5-5.1) mmol/L Chloride 102 (98-107) mmol/L Carbon Dioxide 22 (22-29) mmol/L Anion Gap 15.2 (5-19) BUN 10 (6-20) mg/dL Creatinine 0.7 (0.7-1.2) mg/dL GFR Calculation 123.1 (90-130) mL/min Glucose 130 H (65-115) mg/dL Calculated Osmolal ity 283 L (285-295) mOsm/k g Calcium 8.6 (8.5-10.5) mg/dL Total Bilirubin 1.6 H (0.15-1.2) mg/dL AST 57 H (0-40) U/L ALT 59 H (0-41) U/L Alkaline Phosphata se 93 (40-130) IU/L Total Protein 7.0 (6.6-8.7) g/dL Albumin 4.0 (3.5-5.2) g/dL Globulin 3.0 (1.3-4.6) g/dL Triglycerides 110 (0-150) mg/dL Lipase 1252 H (13-60) U/L Procalcitonin (0-0.5) ng/mL Urine Color (Yellow) Urine Appearance (CLEAR) Urine pH (5-7) Ur Specific Gravit y (1.005-1.030) Urine Protein (Negative) Urine Glucose (UA) (Normal) Urine Ketones (Negative) Urine Blood (Negative) Urine Nitrate (Negative) Urine Bilirubin (Negative) Urine Urobilinogen (Negative) mg/dL Ur Leukocyte Elizabeth ase (Negative) Urine Opiates Scre en (Negative) ng/mL Ur Barbiturates Sc reen (Negative) ng/mL Ur Phencyclidine S crn (Negative) ng/mL Ur Amphetamines Sc reen (Negative) ng/mL U Benzodiazepines Scrn (Negative) ng/mL Urine Cocaine Scre en (Negative) ng/mL U Marijuana (THC) Screen (Negative) ng/mL Ethyl Alcohol (0-10) mg/dL 11/01/19 11/01/19 11/01/19 Range/Units 16:46 23:34 23:34 WBC (4.0-10.0) 10^3/ uL RBC (4.1-5.3) 10^6/u L Hgb (11.7-16.6) g/dL Hct (42.0-52.0) % MCV (80-94) fL MCH (28.0-34.0) pg MCHC (30.0-36.0) g/dL RDW (12.1-15.1) % Plt Count (130-400) 10^3/c mm MPV (7.4-10.4) fL Neut % (Auto) % Lymph % (Auto) % Metcalfe % (Auto) % Eos % (Auto) % Baso % (Auto) % Neut # (Auto) (1.8-7.7) 10^3/u L Lymph # (Auto) (0.8-4.8) 10^3/u L Metcalfe # (Auto) (0.2-0.9) 10^3/u L Eos # (Auto) (0.0-0.8) 10^3/u L Baso # (Auto) (0.0-0.1) 10^3/u L Nucleated RBC % (a uto) % Nucleated RBCs # /100WBC PT (12.1-14.9) SECO NDS INR (0.8-1.2) APTT (23.9-36.7) SECO NDS Sodium (136-145) mmol/L Potassium (3.5-5.1) mmol/L Chloride (98-107) mmol/L Carbon Dioxide (22-29) mmol/L Anion Gap (5-19) BUN (6-20) mg/dL Creatinine (0.7-1.2) mg/dL GFR Calculation (90-130) mL/min Glucose (65-115) mg/dL Calculated Osmolal ity (285-295) mOsm/k g Calcium (8.5-10.5) mg/dL Total Bilirubin (0.15-1.2) mg/dL AST (0-40) U/L ALT (0-41) U/L Alkaline Phosphata se (40-130) IU/L Total Protein (6.6-8.7) g/dL Albumin (3.5-5.2) g/dL Globulin (1.3-4.6) g/dL Triglycerides 111 (0-150) mg/dL Lipase (13-60) U/L Procalcitonin (0-0.5) ng/mL Urine Color Yellow (Yellow) Urine Appearance Clear (CLEAR) Urine pH 6 (5-7) Ur Specific Gravit y 1.010 (1.005-1.030) Urine Protein Neg (Negative) Urine Glucose (UA) Norm (Normal) Urine Ketones 1+ H (Negative) Urine Blood Neg (Negative) Urine Nitrate Negative (Negative) Urine Bilirubin Neg (Negative) Urine Urobilinogen Norm (Negative) mg/dL Ur Leukocyte Elizabeth ase Negative (Negative) Urine Opiates Scre en Positive H (Negative) ng/mL Ur Barbiturates Sc reen Negative (Negative) ng/mL Ur Phencyclidine S crn Negative (Negative) ng/mL Ur Amphetamines Sc reen Negative (Negative) ng/mL U Benzodiazepines Scrn Negative (Negative) ng/mL Urine Cocaine Scre en Negative (Negative) ng/mL U Marijuana (THC) Screen Negative (Negative) ng/mL Ethyl Alcohol < 10 (0-10) mg/dL 11/02/19 11/02/19 11/02/19 Range/Units 04:15 04:15 04:15 WBC 13.8 H (4.0-10.0) 10^3/ uL RBC 4.08 L (4.1-5.3) 10^6/u L Hgb 11.3 L (11.7-16.6) g/dL Hct 37.3 L (42.0-52.0) % MCV 91.4 D (80-94) fL MCH 27.7 L (28.0-34.0) pg MCHC 30.3 (30.0-36.0) g/dL RDW 18.5 H (12.1-15.1) % Plt Count 341 (130-400) 10^3/c mm MPV 10.9 H (7.4-10.4) fL Neut % (Auto) 72.1 % Lymph % (Auto) 19.0 % Metcalfe % (Auto) 8.0 % Eos % (Auto) 0.4 % Baso % (Auto) 0.1 % Neut # (Auto) 9.93 H (1.8-7.7) 10^3/u L Lymph # (Auto) 2.6 (0.8-4.8) 10^3/u L Metcalfe # (Auto) 1.1 H (0.2-0.9) 10^3/u L Eos # (Auto) 0.1 (0.0-0.8) 10^3/u L Baso # (Auto) 0.0 (0.0-0.1) 10^3/u L Nucleated RBC % (a uto) 0 % Nucleated RBCs # 0.0 /100WBC PT (12.1-14.9) SECO NDS INR (0.8-1.2) APTT (23.9-36.7) SECO NDS Sodium 137 (136-145) mmol/L Potassium 3.3 L (3.5-5.1) mmol/L Chloride 102 (98-107) mmol/L Carbon Dioxide 24 (22-29) mmol/L Anion Gap 14.3 (5-19) BUN 6 (6-20) mg/dL Creatinine 0.7 (0.7-1.2) mg/dL GFR Calculation 123.1 (90-130) mL/min Glucose 92 (65-115) mg/dL Calculated Osmolal ity 281 L (285-295) mOsm/k g Calcium 7.9 L (8.5-10.5) mg/dL Total Bilirubin 1.3 H (0.15-1.2) mg/dL AST 38 (0-40) U/L ALT 45 H (0-41) U/L Alkaline Phosphata se 79 (40-130) IU/L Total Protein 6.3 L (6.6-8.7) g/dL Albumin 3.5 (3.5-5.2) g/dL Globulin 2.8 (1.3-4.6) g/dL Triglycerides (0-150) mg/dL Lipase 1000 H (13-60) U/L Procalcitonin (0-0.5) ng/mL Urine Color (Yellow) Urine Appearance (CLEAR) Urine pH (5-7) Ur Specific Gravit y (1.005-1.030) Urine Protein (Negative) Urine Glucose (UA) (Normal) Urine Ketones (Negative) Urine Blood (Negative) Urine Nitrate (Negative) Urine Bilirubin (Negative) Urine Urobilinogen (Negative) mg/dL Ur Leukocyte Elizabeth ase (Negative) Urine Opiates Scre en (Negative) ng/mL Ur Barbiturates Sc reen (Negative) ng/mL Ur Phencyclidine S crn (Negative) ng/mL Ur Amphetamines Sc reen (Negative) ng/mL U Benzodiazepines Scrn (Negative) ng/mL Urine Cocaine Scre en (Negative) ng/mL U Marijuana (THC) Screen (Negative) ng/mL Ethyl Alcohol (0-10) mg/dL 11/02/19 Range/Units 04:15 WBC (4.0-10.0) 10^3/ uL RBC (4.1-5.3) 10^6/u L Hgb (11.7-16.6) g/dL Hct (42.0-52.0) % MCV (80-94) fL MCH (28.0-34.0) pg MCHC (30.0-36.0) g/dL RDW (12.1-15.1) % Plt Count (130-400) 10^3/c mm MPV (7.4-10.4) fL Neut % (Auto) % Lymph % (Auto) % Metcalfe % (Auto) % Eos % (Auto) % Baso % (Auto) % Neut # (Auto) (1.8-7.7) 10^3/u L Lymph # (Auto) (0.8-4.8) 10^3/u L Metcalfe # (Auto) (0.2-0.9) 10^3/u L Eos # (Auto) (0.0-0.8) 10^3/u L Baso # (Auto) (0.0-0.1) 10^3/u L Nucleated RBC % (a uto) % Nucleated RBCs # /100WBC PT (12.1-14.9) SECO NDS INR (0.8-1.2) APTT (23.9-36.7) SECO NDS Sodium (136-145) mmol/L Potassium (3.5-5.1) mmol/L Chloride (98-107) mmol/L Carbon Dioxide (22-29) mmol/L Anion Gap (5-19) BUN (6-20) mg/dL Creatinine (0.7-1.2) mg/dL GFR Calculation (90-130) mL/min Glucose (65-115) mg/dL Calculated Osmolal ity (285-295) mOsm/k g Calcium (8.5-10.5) mg/dL Total Bilirubin (0.15-1.2) mg/dL AST (0-40) U/L ALT (0-41) U/L Alkaline Phosphata se (40-130) IU/L Total Protein (6.6-8.7) g/dL Albumin (3.5-5.2) g/dL Globulin (1.3-4.6) g/dL Triglycerides (0-150) mg/dL Lipase (13-60) U/L Procalcitonin 0.06 (0-0.5) ng/mL Urine Color (Yellow) Urine Appearance (CLEAR) Urine pH (5-7) Ur Specific Gravit y (1.005-1.030) Urine Protein (Negative) Urine Glucose (UA) (Normal) Urine Ketones (Negative) Urine Blood (Negative) Urine Nitrate (Negative) Urine Bilirubin (Negative) Urine Urobilinogen (Negative) mg/dL Ur Leukocyte Elizabeth ase (Negative) Urine Opiates Scre en (Negative) ng/mL Ur Barbiturates Sc reen (Negative) ng/mL Ur Phencyclidine S crn (Negative) ng/mL Ur Amphetamines Sc reen (Negative) ng/mL U Benzodiazepines Scrn (Negative) ng/mL Urine Cocaine Scre en (Negative) ng/mL U Marijuana (THC) Screen (Negative) ng/mL Ethyl Alcohol (0-10) mg/dL Discharge Plan Discharge Patient Disposition: Admitted As Inpatient Admit Provider: Papo Buckley Clinical Impression: Acute recurrent pancreatitis, Portal vein thrombosis, GERD (gastroesophageal reflux disease), Mild dehydration Condition: Stable Interventions: ED Discharge Assessment Last Done: 11/01/19 20:37 ED Charges Last Done: 11/01/19 20:37 Discharge Date/Time: 11/01/19 20:38 Coding Level of Care Code ED Parachute Taper for Kerwin Walls
[2019-11-01] MEDS: iohexol 300 mg/mL 100 mL Btl IV (16:51)
[2019-11-01 17:10] LABS: Basophils % 0.1 %; Hematocrit 39.3 % (42.0-52.0); Hemoglobin 12.4 g/dL (11.7-16.6); Lymphocytes # 1.6 10^3/uL (0.8-4.8); Lymphocytes % 11.5 %; Mean Corpuscular HGB Conc 31.6 g/dL (30.0-36.0); Mean Corpuscular Hemoglobin 27.4 pg (28.0-34.0); Mean Corpuscular Volume 86.8 fL (80-94); Monocytes # 0.8 10^3/uL (0.2-0.9); Monocytes % 5.8 %; Neutrophils % 82.2 %; Nucleated Red Blood Cells % 0 %; Platelet Count 378 10^3/cmm (130-400); Red Blood Count 4.53 10^6/uL (4.1-5.3); Red Cell Distribution Width 18.2 % (12.1-15.1)
[2019-11-01 17:11] VITALS: RESP 18; O2SAT 98
[2019-11-01] MEDS: morphine 4 mg/mL SDV 1 mL 8 MG IVP (17:11)
[2019-11-01 17:27] LABS: Partial Thromboplastin Time 25.8 SECONDS (23.9-36.7)
[2019-11-01 17:32] LABS: Alanine Aminotransferase 59 U/L (0-41); Alkaline Phosphatase 93 IU/L (40-130); Anion Gap 15.2 (5-19); Aspartate Amino Transferase 57 U/L (0-40); Blood Urea Nitrogen 10 mg/dL (6-20); Calcium 8.6 mg/dL (8.5-10.5); Carbon Dioxide 22 mmol/L (22-29); Chloride 102 mmol/L (98-107); Glomerular Filtration Rate 123.1 mL/min (90-130); Glucose 130 mg/dL (65-115); Osmolality Calculated 283 mOsm/kg (285-295); Potassium 3.2 mmol/L (3.5-5.1); Sodium 136 mmol/L (136-145); Total Bilirubin 1.6 mg/dL (0.15-1.2); Triglycerides 110 mg/dL (0-150)
[2019-11-01] MEDS: sodium chloride 0.9% 1,000 ML 999 ML IV ×2 (18:03→18:04)
[2019-11-01 18:09] LABS: Lipase 1252 U/L (13-60)
[2019-11-01 18:11] VITALS: BP 120/71; PULSE 103; RESP 18; O2SAT 98
[2019-11-01] MEDS: ondansetron 2 mg/ML SDV 2 mL 4 MG IVP (18:11)
[2019-11-01 18:12] VITALS: RESP 18; O2SAT 99
[2019-11-01] MEDS: morphine 4 mg/mL SDV 1 mL IVP (18:12)
--- NOTE | 2019-11-01 19:26 | P.HP_ITS ---
Providers/Chief Complaint Primary Care Provider: Sandra Lentz MD Chief Complaint: n/v/ abdominal pain History of Present Illness Devaughn Elkins is a 44 year old male who has history of recurrent pancreatitis, heavy alcohol abuse, in May suffered from acute portal vein thrombosis, he was started on Eliquis, following up with Dr. Gonzales, hypercoagulable work-up has been negative, came in today for worsening dental pain. Patient stating that his last drink was 2 weeks ago, he has been chewing tobacco, last night after eating hamburger he started experiencing abdominal pain in mid epigastric region, he could not sleep at all, his pain gradually got worse overnight and he decided to come to the hospital today, he has been noticing dry heaves, denying fever, chills, dysuria or diarrhea. His last bowel movement was within the last 24 hours which was regular. He is denying chest pain, shortness of breath. Diagnostic work-up in the ER revealed tachycardia, leukocytosis, hypokalemia, abnormal transaminases, high lipase with abdominal CT consistent with severe pancreatitis 1. Acute interstitial edematous pancreatitis with significant peripancreatic fat stranding and fluid which extends into the peritoneal cavity and left pericolic gutter. 2. New 1.8 cm cystic lesion in the pancreatic head most likely represents a pseudocyst given patient's history of prior pancreatitis. 3. 1.2 cm hypodensity at the origin of the main portal vein is most likely a partial thrombus. Review of Systems Const: Reports: body aches and fatigue; Denies: fever(s) or chills Eyes: Denies: change in vision ENMT: Denies: throat pain Card: Denies: chest pain or palpitations Resp: Denies: dyspnea GI: Reports: abdominal pain, nausea, bloating and GI cramping; Denies: vomiting or diarrhea : Denies: flank pain Musc: Denies: neck pain Skin/Breast: Denies: rash Neuro: Denies: headache(s) Psych: Reports: anxiety Endo: Denies: polyuria Arnav/Lymph: Denies: easy bruising All/Imm: Denies: urticaria Medications/Allergies Home Medications Medication Instructions Recorded Confirmed Last Taken Type Eliquis 5 mg PO BID 06/11/19 11/01/19 11/01/19 History acetaminophen [Tylenol Extra 1,000 mg PO PRN 07/22/19 11/01/19 08/12/19 History Strength] ondansetron HCl [Zofran] 4 mg PO Q6H PRN #20 tab 08/13/19 11/01/19 11/01/19 Rx oxycodone-acetaminophen See Rx Instructions .ROUTE .COMPLEX 11/01/19 11/01/19 Unknown History Allergies Allergy/AdvReac Type Severity Reaction Status Date / Time ampicillin Allergy Unknown Verified 11/01/19 17:42 Penicillins Allergy Unknown Verified 11/01/19 17:42 PFSH Acute PFSH: Medical History Hiatal hernia Nephrolithiasis Portal vein thrombosis -Had initially been seen on CT abdomen and pelvis done on 05/08/2019 during which time he was noted to have acute thrombosis involving the portal vein, superior mesenteric vein and distal mesenteric branches, hepatic steatosis, extensive mesenteric stranding and congestion, early ischemic changes in the left small bowel with no perforation. Patient was then transferred to [facility] in [place] where he was anticoagulated initially with IV heparin and then discharged on 7 days of Lovenox and has since been taking Eliquis. -Review of records obtained from [facility] show normal AFP (3.4), negative hypercoagulability work-up including factor V Leiden mutation though was found to have slightly elevated serum homocysteine at 18. MRI of the abdomen with and without contrast with extensive non-occlusive thrombosis within portal venous tree with involvement of portal venous confluence and branches of superior mesenteric vein, marked fatty liver infiltration, sludge within the gallbladder lumen. Copy of records in paper chart -Unclear etiology as no prior liver pathology and workup relatively u nrevealing -Seen by Dr. Gonzales on 06/03 PUD (peptic ulcer disease) Superior mesenteric vein thrombosis -Appears unchanged on imaging -as noted above Surgical History History of esophagogastroduodenoscopy (EGD) Family History Brother Cancer Pancreatic cancer? Social History Smoking and tobacco status: never smoked Alcohol intake: current Alcohol type: hard liquor Alcohol use comment: heavy etoh user Substance/Drug Use: never Marital status: Vitals/I&O/Wt Last Vital Signs Temp 97.9 F 11/01/19 16:06 Pulse 103 H 11/01/19 18:11 Resp 18 11/01/19 18:12 BP 120/71 11/01/19 18:11 Pulse Ox 99 11/01/19 18:12 11/01/19 11/01/19 11/01/19 06:59 14:59 22:59 Intake Total 16.65 / 16.65 Balance 16.65 / 16.65 Weight last 48 hrs Weight 90.265 kg Physical Exam Narrative: EXAM NARRATIVE: Young male Currently laying comfortably in his bed Complaining of midepigastric pain Mildly dehydrated Abdomen distended, tenderness to superficial palpation midepigastric region, bowel sounds sluggish S1, S2 tachycardia No acute respiratory distress No adventitious sounds heard Lower extremity no edema gangrene or ulcer No signs of retroperitoneal hemorrhage EOMI, PERRLA Awake alert oriented x3 GCS 15 Hard to comment on scleral icterus in room light Data : 11/01/19 16:46 11/01/19 16:46 A&P Assessment and plan (1) Acute recurrent pancreatitis: Status: Acute (2) Mild dehydration: Status: Acute Additional A&P Information Acute recurrent pancreatitis His last drink was 2 weeks ago He has been chewing tobacco on daily basis No active emesis High lipase, severe pancreatitis signs on CT abdomen Portal vein thrombosis evident Advance diet as tolerated, lactated Ringer at 100 cc/h for now Dilaudid for analgesia Will check drug screen Calcium level normal, creatinine normal, high bilirubin with abnormal transaminases due to severe pancreatitis, alk phosphatase normal Pseudocyst 1.8 cm cystic lesion in pancreatic head Closely monitor for worsening of pain, development of signs of sepsis Will need close outpatient follow-up Portal vein/mesenteric thrombosis Hypercoagulable work-up negative, continue Eliquis, last dose was 9 AM today Resume Eliquis for now Tachycardia and leukocytosis This is secondary to pancreatitis, closely monitor for development of pancreatic necrosis with sepsis I would not initiate Zosyn for now No signs of cholangitis, Chews tobacco on daily basis: Need reinforcement for cessation of nicotine Full code N.p.o. DVT prophylaxis not indicated currently on Eliquis Attestations Medical Necessity Statement*: Anticipating discharge in less than 48 hours currently need pain management for recurrent pancreatitis Time Spent in Patient Care: (>than 50% of time spent in counselling and/or direct pt care on unit) . 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
[2019-11-01 20:30] VITALS: BP 124/85; PULSE 128; RESP 26; TEMP 36.8; O2SAT 97
[2019-11-01 21:16] LABS: Triglycerides 111 mg/dL (0-150)
[2019-11-01 21:18] LABS: Alcohol Level < 10 mg/dL (0-10)
[2019-11-01] MEDS: lactated ringers 1,000 ML 125 ML IV (21:35)
[2019-11-01 21:36] VITALS: RESP 18; O2SAT 97
[2019-11-01] MEDS: HYDROmorphone 1 mg/mL INJ 1 mL 2 MG IVP (21:36)
[2019-11-01 23:43] LABS: Add Urine Microscopic? NO
[2019-11-01 23:48] LABS: Bilirubin Urine Neg (Negative); Blood Urine Neg (Negative); Glucose Urine UA Norm (Normal); Ketones Urine 1+ (Negative); Leukocyte Esterase Urine Negative (Negative); Nitrate Urine Negative (Negative); Protein Urine Neg (Negative); Urine Appearance Clear (CLEAR); Urine Color Yellow (Yellow); Urobilinogen Urine Norm (Negative); pH Urine 6 (5-7)
[2019-11-01 23:54] LABS: Amphetamines Screen Urine Negative (Negative); Barbiturates Screen Urine Negative (Negative); Benzodiazepines Screen Urine Negative (Negative); Cocaine Screen Urine Negative (Negative); Opiate Screen Urine Positive (Negative); PCP Screen Urine Negative (Negative); THC Screen Urine Negative (Negative)
[2019-11-02] VITALS (13 sets, daily range): BP systolic 129–146; BP diastolic 75–89; PULSE 105–124; RESP 16–24; TEMP 36.7–38.3; O2SAT 90–96
[2019-11-02] MEDS: HYDROmorphone 1 mg/mL INJ 1 mL 2 MG IVP ×5 (01:36→23:48)
[2019-11-02 05:27] LABS: Basophils % 0.1 %; Eosinophils # 0.1 10^3/uL (0.0-0.8); Eosinophils % 0.4 %; Hematocrit 37.3 % (42.0-52.0); Hemoglobin 11.3 g/dL (11.7-16.6); Lymphocytes # 2.6 10^3/uL (0.8-4.8); Mean Corpuscular HGB Conc 30.3 g/dL (30.0-36.0); Mean Corpuscular Hemoglobin 27.7 pg (28.0-34.0); Mean Corpuscular Volume 91.4 fL (80-94); Mean Platelet Volume 10.9 fL (7.4-10.4); Monocytes # 1.1 10^3/uL (0.2-0.9); Neutrophils # 9.93 10^3/uL (1.8-7.7); Neutrophils % 72.1 %; Nucleated Red Blood Cells % 0 %; Platelet Count 341 10^3/cmm (130-400); Red Blood Count 4.08 10^6/uL (4.1-5.3); Red Cell Distribution Width 18.5 % (12.1-15.1); White Blood Count 13.8 10^3/uL (4.0-10.0)
[2019-11-02 05:52] LABS: Alanine Aminotransferase 45 U/L (0-41); Albumin Level 3.5 g/dL (3.5-5.2); Alkaline Phosphatase 79 IU/L (40-130); Anion Gap 14.3 (5-19); Aspartate Amino Transferase 38 U/L (0-40); Blood Urea Nitrogen 6 mg/dL (6-20); Calcium 7.9 mg/dL (8.5-10.5); Carbon Dioxide 24 mmol/L (22-29); Chloride 102 mmol/L (98-107); Globulin 2.8 g/dL (1.3-4.6); Glomerular Filtration Rate 123.1 mL/min (90-130); Glucose 92 mg/dL (65-115); Osmolality Calculated 281 mOsm/kg (285-295); Potassium 3.3 mmol/L (3.5-5.1); Sodium 137 mmol/L (136-145); Total Bilirubin 1.3 mg/dL (0.15-1.2); Total Protein 6.3 g/dL (6.6-8.7)
[2019-11-02] MEDS: lactated ringers 1,000 ML 125 ML IV ×2 (06:26→22:00)
[2019-11-02] MEDS: pantoprazole 40 mg SDV IVP (08:19)
[2019-11-02] MEDS: apixaban 5 mg Tablet PO ×2 (08:19→19:26)
[2019-11-02 10:08] LABS: Lipase 1000 U/L (13-60)
[2019-11-02] MEDS: HYDROmorphone 1 mg/mL INJ 1 mL IVP (10:40)
[2019-11-02] MEDS: sodium chloride 0.9% (100 ml) 100 ML 20 ML (10:47)
[2019-11-02] MEDS: ondansetron 2 mg/ML SDV 2 mL 4 MG IVP ×2 (10:57→19:43)
--- NOTE | 2019-11-02 13:46 | PC.CHAP ---
Pastoral Care Encounter/Spiritual Assessment Type of Contact [] Declined account resolution specialist visit [] Patient/Family/Request visit [] Outpatient visit [] Follow-up visit [] Physician referral [] Code/Alert [x] Routine visit [] Staff referral [] Actively dying [] Patient sleeping [] Family support [] [] Out of room [] Palliative care [] [] Receiving care in room [] Pre-surgical visit [] Trauma [] Long length of stay [] ICU visit [] Other: Relational/Emotional Strength [] Patient feels connected with others/family/visitors/staff [] Distress [] Loneliness/isolation [] Abandonment Spirituality of Patient [] Person of Diana [] Attends Yazidi of their Diana [] Believes in Prayer [] Reads Bible or Advent materials [] There are Spiritual issues to be addressed Bond Clerk Interventions [x] Prayer [] Active listening [] Non-anxious presence [] Spiritual/emotional support [] Crisis/trauma care [] Spiritual counseling [] Bereavement support [] Provided bereavement packet [] Provided Bible/devotional materials [] Provided toy/stuffed animal, coloring book to patient or family member [] Provided Communion [] Anointing/[place] [] Salvation [] Completed spiritual assessment [] Other: Impact on Illness or Injury [] Angry [] Fearful [] Anxious [] Often cries [] Exhaustion [] Unable to work [] Unable to attend episcopalian [] Unable to walk/stand [] Unable to read [] Unable to drive [] Unable to eat/drink [] Unable to sleep [] Unable to be with family [] Patient intubated [] Other: Summary Time spent with patient
--- NOTE | 2019-11-02 13:49 | PC.CHAP ---
Pastoral Care Encounter/Spiritual Assessment Type of Contact [] Declined commercial project manager visit [] Patient/Family/Request visit [] Outpatient visit [] Follow-up visit [] Physician referral [] Code/Alert [x] Routine visit [] Staff referral [] Actively dying [] Patient sleeping [] Family support [] [] Out of room [] Palliative care [] [] Receiving care in room [] Pre-surgical visit [] Trauma [] Long length of stay [] ICU visit [] Other: Relational/Emotional Strength [] Patient feels connected with others/family/visitors/staff [] Distress [] Loneliness/isolation [] Abandonment Spirituality of Patient [] Person of Diana [] Attends Oriental Orthodox of their Diana [] Believes in Prayer [] Reads Bible or Orthodox materials [] There are Spiritual issues to be addressed Window Glazier Helper Interventions [x] Prayer [] Active listening [] Non-anxious presence [] Spiritual/emotional support [] Crisis/trauma care [] Spiritual counseling [] Bereavement support [] Provided bereavement packet [] Provided Bible/devotional materials [] Provided toy/stuffed animal, coloring book to patient or family member [] Provided Communion [] Anointing/[place] [] Salvation [] Completed spiritual assessment [] Other: Impact on Illness or Injury [] Angry [] Fearful [] Anxious [] Often cries [] Exhaustion [] Unable to work [] Unable to attend jehovah's witness [] Unable to walk/stand [] Unable to read [] Unable to drive [] Unable to eat/drink [] Unable to sleep [] Unable to be with family [] Patient intubated [] Other: Summary Time spent with patient
--- NOTE | 2019-11-02 15:27 | P.PN_ITS ---
Subjective Subjective: Interval history: The patient reports slightly improved abdominal pain. It is in the upper abdomen with radiation to his back. No nausea or vomiting. Tolerating clear liquid diet okay. Had some fever earlier. No chest pain, shortness of breath, cough, palpitations. Medications: Reviewed: Yes Medication Review Details: Generic Name Dose Route Start Last Admin Trade Name Freq PRN Reason Stop Dose Admin Apixaban 5 mg 11/02/19 09:00 11/02/19 08:19 Eliquis PO 5 mg BID ELLIOTT Administration Hydromorphone HCl 2 mg 11/01/19 21:12 11/02/19 15:10 Dilaudid Inj IVP 2 mg Q4H PRN Administration abd pain Lactated Ringer's 1,000 mls @ 150 m ls/hr 11/01/19 21:12 11/02/19 06:26 Lactated Ringers IV 125 mls/hr .[id number] ELLIOTT Administration Ondansetron HCl 4 mg 11/01/19 21:12 11/02/19 10:57 Zofran IVP 4 mg Q6H PRN Administration NAUSEA AND VOMITI NG Pantoprazole Sodiu m 40 mg 11/02/19 09:00 11/02/19 08:19 Protonix IVP 40 mg DAILY ELLIOTT Administration Vitals/I&O/Wt Last Vital Signs Temp 100.3 F H 11/02/19 11:37 Pulse 109 H 11/02/19 11:37 Resp 18 11/02/19 15:10 BP 131/75 11/02/19 11:37 Pulse Ox 95 11/02/19 11:37 11/02/19 11/02/19 11/02/19 06:59 14:59 22:59 Intake Total 1400 / 1656.65 240 / 240 Output Total 430 / 730 300 / 300 Balance 970 / 926.65 -60 / -60 Weight last 48 hrs Weight 90.265 kg Physical Exam Narrative: EXAM NARRATIVE: The patient is awake alert and oriented. No acute distress. Mood and affect are appropriate. Responses are adequate. Skin is warm and dry. Moist mucous membranes. Eyes PERRLA, extraocular muscles intact. No icterus. Neck supple. No JVD Lungs clear to auscultation bilaterally. No wheezes or crackles. No respiratory distress. Heart S1, S2, regular Abdomen soft, tender, no rebound, bowel sounds are present. No guarding. Extremities. No edema cyanosis or calf tenderness bilaterally No focal weakness. Normal speech. Cranial nerves II through XII are grossly intact. Data : 11/02/19 04:15 11/02/19 04:15 A&P Assessment and plan (1) Acute recurrent pancreatitis: Status: Acute (2) Mild dehydration: Status: Acute Additional A&P Information Acute recurrent pancreatitis His last drink was 2 weeks ago He has been chewing tobacco on daily basis No active emesis High lipase, severe pancreatitis signs on CT abdomen Portal vein thrombosis evident Advance diet as tolerated, lactated Ringer at 100 cc/h for now Dilaudid for analgesia Will check drug screen Calcium level normal, creatinine normal, high bilirubin with abnormal transaminases due to severe pancreatitis, alk phosphatase normal Pseudocyst 1.8 cm cystic lesion in pancreatic head Closely monitor for worsening of pain, development of signs of sepsis Will need close outpatient follow-up Portal vein/mesenteric thrombosis Hypercoagulable work-up negative, continue Eliquis, last dose was 9 AM today Resume Eliquis for now Tachycardia and leukocytosis This is secondary to pancreatitis, closely monitor for development of pancreatic necrosis with sepsis I would not initiate Zosyn for now No signs of cholangitis, Chews tobacco on daily basis: Need reinforcement for cessation of nicotine Full code N.p.o. DVT prophylaxis not indicated currently on Eliquis [place]: Acute recurrent pancreatitis with 1.8 cm pancreatic head pseudocyst. Has associated temperature and leukocytosis. Has tachycardia. Although the pain is improving I am still concerned about possible infection. Will slightly increase IV fluid rate. We will continue clear liquid diet. We will start him on Primaxin. He has penicillin allergy. We will check his procalcitonin level. Will monitor CBC. The patient states that his last alcohol was 2 weeks ago. I have a slight suspicion that patient might still be active drinker. His calcium level was normal. Triglycerides are not elevated. LFTs are slightly increased but alk phos is normal. CT did not show any biliary abnormalities. I do not have any other explanations for recurrence of pancreatitis. EtOH. Currently there is no evidence of withdrawal symptoms. I will start him on thiamine replacement and CIWA protocol. History of portal vein thrombosis. He is on Eliquis. His coags of her within normal range. I have a suspicion that he does not take his Eliquis regularly. DVT prophylaxis. He is on Eliquis. GI prophylaxis. Pantoprazole. Hypokalemia. Replace and monitor. Anemia. Stable. Continue monitoring. The plan of care was discussed with the patient. He verbalized understanding and agreement. Attestations Medical Necessity Statement*: The plan of care outlined above requires that he remains hospitalized. Coding Level of Care Code Acute Master Deputy Sheriff Court Security for Kerwin Walls Diagnoses Acute recurrent pancreatitis K85.90 Mild dehydration E86.0
[2019-11-02 16:11] LABS: Procalcitonin 0.06 ng/mL (0-0.5)
[2019-11-03] VITALS (8 sets, daily range): BP systolic 115–132; BP diastolic 76–85; PULSE 85–104; RESP 16–22; TEMP 36.9–37.7; O2SAT 90–98
[2019-11-03] MEDS: HYDROmorphone 1 mg/mL INJ 1 mL 2 MG IVP ×2 (04:31→09:23)
[2019-11-03] MEDS: ondansetron 2 mg/ML SDV 2 mL 4 MG IVP (04:41)
[2019-11-03 05:32] LABS: Basophils % 0.1 %; Eosinophils # 0.2 10^3/uL (0.0-0.8); Eosinophils % 1.6 %; Hematocrit 34.1 % (42.0-52.0); Hemoglobin 10.5 g/dL (11.7-16.6); Lymphocytes # 2.3 10^3/uL (0.8-4.8); Lymphocytes % 15.8 %; Mean Corpuscular HGB Conc 30.8 g/dL (30.0-36.0); Mean Corpuscular Hemoglobin 27.5 pg (28.0-34.0); Mean Corpuscular Volume 89.3 fL (80-94); Mean Platelet Volume 10.6 fL (7.4-10.4); Monocytes # 1.5 10^3/uL (0.2-0.9); Monocytes % 10.2 %; Neutrophils # 10.48 10^3/uL (1.8-7.7); Neutrophils % 71.9 %; Nucleated Red Blood Cells % 0 %; Platelet Count 303 10^3/cmm (130-400); Red Blood Count 3.82 10^6/uL (4.1-5.3); Red Cell Distribution Width 18.3 % (12.1-15.1); White Blood Count 14.6 10^3/uL (4.0-10.0)
[2019-11-03 05:50] LABS: Alanine Aminotransferase 34 U/L (0-41); Albumin Level 3.4 g/dL (3.5-5.2); Alkaline Phosphatase 73 IU/L (40-130); Anion Gap 14.4 (5-19); Aspartate Amino Transferase 31 U/L (0-40); Blood Urea Nitrogen 4 mg/dL (6-20); Calcium 8.3 mg/dL (8.5-10.5); Carbon Dioxide 23 mmol/L (22-29); Chloride 98 mmol/L (98-107); Globulin 2.5 g/dL (1.3-4.6); Glucose 92 mg/dL (65-115); Lipase 297 U/L (13-60); Magnesium 1.7 mg/dL (1.7-2.3); Osmolality Calculated 271 mOsm/kg (285-295); Potassium 3.4 mmol/L (3.5-5.1); Sodium 132 mmol/L (136-145); Total Bilirubin 1.9 mg/dL (0.15-1.2); Total Protein 5.9 g/dL (6.6-8.7)
[2019-11-03 06:01] LABS: Procalcitonin 0.23 ng/mL (0-0.5)
[2019-11-03] MEDS: lactated ringers 1,000 ML 125 ML IV (06:51)
[2019-11-03] MEDS: multivitamin therapeutic Tablet 1 TAB PO (08:02)
[2019-11-03] MEDS: apixaban 5 mg Tablet PO ×2 (08:02→20:35)
[2019-11-03] MEDS: folic acid 1 mg Tablet PO (08:02)
[2019-11-03] MEDS: thiamine 100 mg Tablet PO (08:02)
[2019-11-03 08:58] LABS: Lipase 296 U/L (13-60)
[2019-11-03] MEDS: potassium chloride ER 10 mEq Tablet 40 MEQ PO (08:59)
[2019-11-03] MEDS: pantoprazole 40 mg SDV IVP (09:23)
[2019-11-03] MEDS: sodium chlor 0.45% +KCl 20 mEq 20 MEQ/1,000 ML BAG 75 MEQ IV (09:35)
--- NOTE | 2019-11-03 12:13 | XRR_ITS ---
PROCEDURE INFORMATION: Exam: XR Chest, 1 View Exam date and time: 11/03/2019 12:14 PM Age: 44 years old Clinical indication: Dyspnea; Additional info: Hypoxia TECHNIQUE: Imaging protocol: XR of the chest Views: 1 view. COMPARISON: CR XR chest 1V portable [id number] 11/01/2019 4:35 PM FINDINGS: Lungs: Unremarkable. No consolidation. Pleural space: Unremarkable. No pleural effusion. No pneumothorax. Heart/Mediastinum: Unremarkable. No cardiomegaly. Bones/joints: Unremarkable. XR/XR chest 1V portable [id number] IMPRESSION: No acute findings.
--- NOTE | 2019-11-03 12:18 | NMR_ITS ---
PROCEDURE INFORMATION: Exam: WI Lung Ventilation and Perfusion Imaging Exam date and time: 11/03/2019 7:48 PM Age: 44 years old Clinical indication: Dyspnea; Additional info: Decreased oxygen saturation. TECHNIQUE: Imaging protocol: Nuclear pulmonary ventilation with aerosol or gas was performed followed by perfusion. Views: Ventilation acquired with multiple projections. Perfusion acquired with multiple projections. Radiopharmaceutical: 32.4 mCi DTPA Aersol (Tc-99m DTPA), Inhalation. 5.3 mCi Tc-99m MAA, IV. COMPARISON: CR XR chest 1V portable [id number] 11/01/2019 4:35 PM FINDINGS: Ventilation: There is central clumping of tracer, compatible with small airways disease. No ventilation defects. Perfusion: Normal. No perfusion defects. WI/WI pul vent and perfus* [id number] IMPRESSION: No evidence of pulmonary embolism.
--- NOTE | 2019-11-03 12:27 | P.PN_ITS ---
Subjective Subjective: Interval history: Patient reports feeling better. Abdominal pain is better. Wants real food. No nausea or vomiting. No fevers or chills. Denies diarrhea. The patient denies shortness of breath or cough. The nurse noted that patient's oxygen saturation is 90 on room air. Vitals/I&O/Wt Last Vital Signs Temp 98.6 F 11/03/19 11:22 Pulse 102 H 11/03/19 11:22 Resp 17 11/03/19 11:22 BP 124/85 11/03/19 11:22 Pulse Ox 90 11/03/19 11:22 11/02/19 11/03/19 11/03/19 22:59 06:59 14:59 Intake Total 252 / 1492 1100 / 2592 120 / 120 Output Total 500 / 800 900 / 1700 550 / 550 Balance -248 / 692 200 / 892 -430 / -430 Weight last 48 hrs Weight 90.265 kg Physical Exam Narrative: EXAM NARRATIVE: The patient is awake alert and oriented. No acute distress. Mood and affect are appropriate. Responses are adequate. Skin is warm and dry. Moist mucous membranes. Eyes PERRLA, extraocular muscles intact. No icterus. Neck supple. No JVD Lungs clear to auscultation bilaterally. No wheezes or crackles. No respiratory distress. Heart S1, S2, regular Abdomen soft, tender, no rebound, bowel sounds are present. No guarding. Extremities. No edema cyanosis or calf tenderness bilaterally No focal weakness. Normal speech. Cranial nerves II through XII are grossly intact. Data : 11/03/19 05:05 11/03/19 05:05 A&P Assessment and plan (1) Acute recurrent pancreatitis: Status: Acute (2) Mild dehydration: Status: Acute Additional A&P Information Acute recurrent pancreatitis His last drink was 2 weeks ago He has been chewing tobacco on daily basis No active emesis High lipase, severe pancreatitis signs on CT abdomen Portal vein thrombosis evident Advance diet as tolerated, lactated Ringer at 100 cc/h for now Dilaudid for analgesia Will check drug screen Calcium level normal, creatinine normal, high bilirubin with abnormal transaminases due to severe pancreatitis, alk phosphatase normal Pseudocyst 1.8 cm cystic lesion in pancreatic head Closely monitor for worsening of pain, development of signs of sepsis Will need close outpatient follow-up Portal vein/mesenteric thrombosis Hypercoagulable work-up negative, continue Eliquis, last dose was 9 AM today Resume Eliquis for now Tachycardia and leukocytosis This is secondary to pancreatitis, closely monitor for development of pancreatic necrosis with sepsis I would not initiate Zosyn for now No signs of cholangitis, Chews tobacco on daily basis: Need reinforcement for cessation of nicotine Full code N.p.o. DVT prophylaxis not indicated currently on Eliquis [place]: Acute recurrent pancreatitis with 1.8 cm pancreatic head pseudocyst. Associated temperature (resolving)and leukocytosis. However procalcitonin level is not elevated. Continue Primaxin. CBC in the morning. If there are any concerns regarding pseudocyst level consider repeating imaging studies. I have a slight suspicion that patient might still be active drinker. His calcium level was normal. Triglycerides are not elevated. LFTs are slightly increased but alk phos is normal. CT did not show any biliary abnormalities. I do not have any other explanations for recurrence of pancreatitis. EtOH. Currently there is no evidence of withdrawal symptoms. Continue thiamine replacement and CIWA protocol. History of portal vein thrombosis. He is on Eliquis. His coags of her within normal range. I have a suspicion that he does not take his Eliquis regularly. Hypoxia. This could be secondary to opiates. Will do chest x-ray and VQ scan. Continue supplemental oxygen and Eliquis. Mild hyponatremia. I suspect this is secondary to LR and significant amount of oral fluids since yesterday. We will switch him to NS and monitor. DVT prophylaxis. He is on Eliquis. GI prophylaxis. Pantoprazole. Hypokalemia. Replace and monitor. Anemia. Stable. Continue monitoring. The plan of care was discussed with the patient. He verbalized understanding and agreement. Attestations Medical Necessity Statement*: The patient still requires IV fluids and antibiotics. Possible home tomorrow if he continues improving. Coding Level of Care Code Acute House Detective for Kerwin Walls Diagnoses Acute recurrent pancreatitis K85.90 Mild dehydration E86.0
[2019-11-03] MEDS: TRAMadol 50 mg Tablet PO ×2 (13:27→20:34)
--- NOTE | 2019-11-03 19:32 | PC.NURSE ---
went in toilet and flushed
[2019-11-04] VITALS (7 sets, daily range): BP systolic 105–150; BP diastolic 66–91; PULSE 80–103; RESP 18; TEMP 36.6–36.8; O2SAT 95–98
[2019-11-04] MEDS: TRAMadol 50 mg Tablet PO (03:55)
[2019-11-04 05:22] LABS: Basophils % 0.1 %; Eosinophils # 0.4 10^3/uL (0.0-0.8); Eosinophils % 3.9 %; Hematocrit 33.4 % (42.0-52.0); Hemoglobin 10.2 g/dL (11.7-16.6); Lymphocytes # 2.1 10^3/uL (0.8-4.8); Lymphocytes % 22.1 %; Mean Corpuscular HGB Conc 30.5 g/dL (30.0-36.0); Mean Corpuscular Hemoglobin 27.9 pg (28.0-34.0); Mean Corpuscular Volume 91.3 fL (80-94); Mean Platelet Volume 10.8 fL (7.4-10.4); Monocytes % 10.3 %; Neutrophils # 5.96 10^3/uL (1.8-7.7); Neutrophils % 63.2 %; Nucleated Red Blood Cells % 0 %; Platelet Count 318 10^3/cmm (130-400); Red Blood Count 3.66 10^6/uL (4.1-5.3); Red Cell Distribution Width 18.6 % (12.1-15.1); White Blood Count 9.4 10^3/uL (4.0-10.0)
[2019-11-04 05:46] LABS: Magnesium 2.6 mg/dL (1.7-2.3)
[2019-11-04 06:07] LABS: Lipase 428 U/L (13-60)
[2019-11-04 06:13] LABS: Albumin Level 3.3 g/dL (3.5-5.2); Anion Gap 13.6 (5-19); Blood Urea Nitrogen 4 mg/dL (6-20); Calcium 8.7 mg/dL (8.5-10.5); Carbon Dioxide 24 mmol/L (22-29); Chloride 102 mmol/L (98-107); Glomerular Filtration Rate 123.1 mL/min (90-130); Glucose 122 mg/dL (65-115); Phosphorus 2.5 mg/dL (2.5-4.5); Potassium 3.6 mmol/L (3.5-5.1); Sodium 136 mmol/L (136-145)
[2019-11-04] MEDS: multivitamin therapeutic Tablet 1 TAB PO (08:35)
[2019-11-04] MEDS: thiamine 100 mg Tablet PO (08:35)
[2019-11-04] MEDS: folic acid 1 mg Tablet PO (08:35)
[2019-11-04] MEDS: apixaban 5 mg Tablet PO (08:35)
[2019-11-04] MEDS: pantoprazole 40 mg SDV IVP (08:56)
--- NOTE | 2019-11-04 10:26 | PC.CHAP ---
Pastoral Care Encounter/Spiritual Assessment Type of Contact [] Declined superintendent radio communications visit [] Patient/Family/Request visit [] Outpatient visit [] Follow-up visit [] Physician referral [] Code/Alert [] Routine visit [] Staff referral [] Actively dying [] Patient sleeping [] Family support [] [] Out of room [] Palliative care [] [x] Receiving care in room [] Pre-surgical visit [] Trauma [] Long length of stay [] ICU visit [] Other: Relational/Emotional Strength [] Patient feels connected with others/family/visitors/staff [] Distress [] Loneliness/isolation [] Abandonment Spirituality of Patient [] Person of Diana [] Attends Anabaptism of their [place] [] Believes in Prayer [] Reads Bible or Jain materials [] There are Spiritual issues to be addressed Address Change Clerk Interventions [] Prayer [] Active listening [] Non-anxious presence [] Spiritual/emotional support [] Crisis/trauma care [] Spiritual counseling [] Bereavement support [] Provided bereavement packet [] Provided Bible/devotional materials [] Provided toy/stuffed animal, coloring book to patient or family member [] Provided Communion [] Anointing/[place] [] Salvation [] Completed spiritual assessment [] Other: Impact on Illness or Injury [] Angry [] Fearful [] Anxious [] Often cries [] Exhaustion [] Unable to work [] Unable to attend hinduism [] Unable to walk/stand [] Unable to read [] Unable to drive [] Unable to eat/drink [] Unable to sleep [] Unable to be with family [] Patient intubated [] Other: Summary Patient was receiving nursing care at the time of the superintendent radio communications visit. Address Change Clerk referred patient to the next superintendent radio communications for a follow up visit. Patient visit attempted by Address Change Clerk Sal Fortune. Time spent with patient 3 minutes
--- NOTE | 2019-11-04 15:28 | P.DS_ITS ---
Discharge Providers Date of Admission: 11/02/19 16:25 Date of Discharge: November 04, 2019 Attending Provider at Admission: Papo Buckley Attending Provider at Discharge: Emerald Jones MD Primary Care Provider: Sandra Lentz MD Diagnoses at Discharge Discharge Diagnosis (1) Acute recurrent pancreatitis: Status: Acute (2) Mild dehydration: Status: Acute (3) Superior mesenteric vein thrombosis: Status: Acute Problem details: -Appears unchanged on imaging -as noted above (4) Portal vein thrombosis: Status: Acute Problem details: -Had initially been seen on CT abdomen and pelvis done on 05/08/2019 during which time he was noted to have acute thrombosis involving the portal vein, superior mesenteric vein and distal mesenteric branches, hepatic steatosis, extensive mesenteric stranding and congestion, early ischemic changes in the left small bowel with no perforation. Patient was then transferred to [facility] in [place] where he was anticoagulated initially with IV heparin and then discharged on 7 days of Lovenox and has since been taking Eliquis. -Review of records obtained from [facility] show normal AFP (3.4), negative hypercoagulability work-up including factor V Leiden mutation though was found to have slightly elevated serum homocysteine at 18. MRI of the abdomen with and without contrast with extensive non-occlusive thrombosis within portal venous tree with involvement of portal venous confluence and branches of superior mesenteric vein, marked fatty liver infiltration, sludge within the gallbladder lumen. Copy of records in paper chart -Unclear etiology as no prior liver pathology and workup relatively unrevealing -Seen by Dr. Gonzales on 06/03 (5) Pseudocyst of pancreas: Status: Acute Reason for Visit Reason for Visit: n/v/ abdominal pain Hospital Course Discharge Summary: Devaughn Elkins is a 44 year old male who has history of recurrent pancreatitis, heavy alcohol abuse, in May suffered from acute portal vein thrombosis, he was started on Eliquis, following up with Dr. Gonzales, hypercoagulable work-up has been negative, came in for worsening abdominal pain , nausea with poor po intake. Diagnostic work-up in the ER revealed tachycardia, leukocytosis, hypokalemia, abnormal transaminases, high lipase with abdominal CT consistent with severe pancreatitis. New 1.8 cm cystic lesion in the pancreatic head most likely represents a pseudocyst. 1.2 cm hypodensity at the origin of the main portal vein is most likely a partial thrombus. Ptainet follows with GI in [facility] and has his next appointmtnt on Nov 10, at which time he states he is also scheduled for a procedure which appears to be ERCP per his description. He is unaware if he is known to have Psuedocyst in the past. He was treated conservatively with IVF, pain control with dilaudid and symptomatic treatment. Patient recivered well. he has been tolerating po intake over the past 2 days, including regular meal since yesetrday. Denies any current abdominal pain, nausea or vomiting. Due to fever earlier in course of illness with associated pseudocyst and leukocytosis, there was concern for underlying infcetion and patient was treated with Primaxin. This has been transitioned to po Cipro and metronidaole until patient can f/up with his GI in [place] in one week. He is afebrile, clinically stable at time of discharge Physical Exam Narrative: EXAM NARRATIVE: GEN: Awake, alert and oriented, no acute distress CVS: S1S2 N RS: CTA B/L Abd: Soft, nt/nd , bs+ POT MAKER: no focal neuro deficits Discharge Data Data Completed and Pending: Completed Studies During Hospitalization Category Date Time Status CT abdomen pelvis w con* [id number] Stat Cat Scan 11/01/19 16:13 Completed XR chest 1V nik ble [id number] Stat Exams 11/01/19 16:13 Completed XR chest 1V nik ble [id number] Stat Exams 11/03/19 12:13 Completed NM pul vent and p erfus* [id number] Routi ne Nuc Med 11/03/19 12:18 Completed Labs from last 24 hours 11/04/19 11/04/19 11/04/19 04:22 04:22 04:22 WBC 9.4 RBC 3.66 L Hgb 10.2 L Hct 33.4 L MCV 91.3 MCH 27.9 L MCHC 30.5 RDW 18.6 H Plt Count 318 MPV 10.8 H Neut % (Auto) 63.2 Lymph % (Auto) 22.1 [place] % (Auto) 10.3 Eos % (Auto) 3.9 Baso % (Auto) 0.1 Neut # (Auto) 5.96 Lymph # (Auto) 2.1 [place] # (Auto) 1.0 H Eos # (Auto) 0.4 Baso # (Auto) 0.0 Nucleated RBC % (a uto) 0 Nucleated RBCs # 0.0 Sodium 136 Potassium 3.6 Chloride 102 Carbon Dioxide 24 Anion Gap 13.6 BUN 4 L Creatinine 0.7 GFR Calculation 123.1 Glucose 122 H Calcium 8.7 Phosphorus 2.5 Magnesium 2.6 H Albumin 3.3 L Lipase 428 H Vitals: Last Vital Signs Temp 97.9 F 11/04/19 15:09 Pulse 103 H 11/04/19 15:09 Resp 18 11/04/19 15:09 BP 150/91 11/04/19 15:09 Pulse Ox 98 11/04/19 15:09 Discharge Plan Discharge Patient Disposition: Home Condition: Stable Prescriptions: New tramadol 50 mg Tablet 50 mg PO Q8H PRN (Reason: Moderate Pain) 7 Days Qty: 21 RF: 0 pantoprazole 40 mg Tablet,Delayed Release (Dr/Ec) 40 mg PO DAILY 30 Days Qty: 30 RF: 0 Vitamin B-1 (mononitrate) 100 mg Tablet 100 mg PO DAILY 30 Days Qty: 30 RF: 0 Thera 400 mcg Tablet 1 tab PO DAILY Qty: 0 RF: 0 Percocet 5-325 mg tablet 1 tab PO Q8H PRN (Reason: pain) 7 Days Qty: 21 RF: 0 Cipro 500 mg tablet 500 mg PO BID 7 Days Qty: 14 RF: 0 Flagyl 500 mg tablet 500 mg PO Q8H 7 Days Qty: 21 RF: 0 Continued acetaminophen [Tylenol Extra Strength] 500 mg Tablet 1,000 mg PO PRN RF: 0 ondansetron HCl [Zofran] 4 mg tablet 4 mg PO Q6H PRN (Reason: nausea and vomiting) Qty: 20 RF: 0 Eliquis 5 mg Tablet 5 mg PO BID RF: 0 Discontinued oxycodone-acetaminophen See Rx Instructions .ROUTE .COMPLEX RF: 0 Discharge Orders: Discharge Order (Routine); Ordered 11/04/19 Ordered By: Emerald Jones Referrals: [email or web address] [Other] - 11/11/19 Discharge Diet: Advance as tolerated Discharge Activity: Resume usual activity Patient Instructions: Ciprofloxacin (By mouth), Oxycodone/Acetaminophen (By mouth), Metronidazole (By mouth), Tramadol (By mouth), Pantoprazole (By mouth), Pancreatitis (GEN) Discharge Date/Time: 11/04/19 16:34 Discharge Attestations Time Spent in Discharge Care*: greater than 30 min Status at Discharge: Cognitive status at discharge: cognitively intact , Behavioral status at discharge: cooperative , Quality Metrics Clinical Quality Measures During this hospital stay, did patient experience: None Coding Level of Care Code Acute Cash Applications Representative for Chg Fwd Diagnoses Acute recurrent pancreatitis K85.90 Mild dehydration E86.0 Superior mesenteric vein thrombosis K55.069 Portal vein thrombosis I81 Pseudocyst of pancreas K86.3
--- NOTE | 2019-11-04 16:29 | PC.NURSE ---
Patient states he does not want to wait for his medications as his ride is here and he is ready to leave. I expressed that he will have to pay for the pain medication (Narcotics) out of pocket but that the antibiotics he will not. He agreed that he will nut picker the 2 Antibiotics at [facility] when he leaves here. He was educated on the importance of taking his medication as prescribed and risks for infection. A CD of his CAT Scans and a report was sent with patient per Dr. Jones's request. A signed Medical consent was obtained from patient for his physician Dr. Machuca in [place] for an upcoming appointment on 2019. Patients IV was removed and patient transported to the Main Entrance for Discharge home via wheelchair. RENAY BOWMAN
== END 2019-11-04 16:34 | disposition home or self-care (01) | DRG 439 ==
LOC: ER 17:40 → MEDSURG 20:38
PROVIDERS: Family Medicine; Internal Medicine; Admitting Provider Internal Medicine; PCP Family Medicine; Visit Provider Student in an Organized Health Care Education/Training Program
DX: K85.90 Acute pancreatitis without necrosis or infection, unspecified (principal); K86.3 Pseudocyst of pancreas; E86.0 Dehydration; Z86.718 Personal history of other venous thrombosis and embolism; Z79.01 Long term (current) use of anticoagulants; F10.21 Alcohol dependence, in remission; E87.6 Hypokalemia; F17.220 Nicotine dependence, chewing tobacco, uncomplicated; Z87.11 Personal history of peptic ulcer disease
CPT/HCPCS: 12345; 36415; 71045; 74177; 78014; 80053; 80069; 80306; 80307; 81003; 83690; 83735; 84145; 84478; 85025; 85610; 85730; 96372; 96375; 99282; A9540; A9567; C9113; G0378; J0743; J1170; J2270; J2405; J3411; J3475; J3480; J7030; Q9967

== ENCOUNTER 2020-04-18 10:02 | Inpatient (IN) | payer MEDICAID, SELFPAY ==
[2020-04-18] VITALS (11 sets, daily range): BP systolic 105–164; BP diastolic 65–86; PULSE 78–92; RESP 16–18; TEMP 36.6–37.3; O2SAT 96–99; BMI 26.7
--- NOTE | 2020-04-18 10:43 | ED_ITS ---
HPI - Nausea/Vomiting/Diarrhea General: Chief complaint: Nausea/Vomiting/Diarrhea Stated complaint: ABD PAIN Time Seen by Provider: 04/18/20 10:11 History of Present Illness: HPI Narrative: 45-year-old male presents complaining of abdominal pain it began supraumbilical and now radiates over to the left side into the left lower quadrant. He denies any dysuria urgency frequency hematochezia melena hematemesis coffee-ground emesis he has had some loose stools intiially reports constipated now, no acholic stools. Symptoms have been going on for a week. He has had nausea and vomiting has had some coffee- ground emesis with it as well. MD elicited complaint: nausea, vomiting and abdominal pain Pertinent past history: anorexia Onset (ago): week(s) (1) Associated nausea: Yes Associated abdominal pain: Yes Location of pain: Periumbilical, LUQ and LLQ Radiation: RUQ Pain consistency: constant Severity: moderate Quality: cramping Exacerbating factors: none Relieving factors: none Associated symtoms: Reports anorexia and nausea; Denies altered mental status, anxiety, bloating, change in vision, chest pain, cough, diaphoresis, decreased urine output, dizziness, dysuria, epistaxis, fatigue, fecal incontinence, fevers/chills, headache(s), malaise, myalgias, numbness, palpitations, rash, short of breath, syncope, tenesmus, tinnitus, weakness or other Review of Systems Const: Denies: fatigue, malaise or diaphoresis Eyes: Denies: change in vision ENMT: Denies: tinnitus or epistaxis Card: Denies: chest pain, palpitations or syncope Resp: Denies: dyspnea, productive cough or non-productive cough GI: Reports: nausea; Denies: bloating or fecal incontinence : Denies: dysuria Skin/Breast: Denies: rash or pruritus Neuro: Denies: headache(s) or dizziness Psych: Denies: anxiety PFSH ED PFSH: Medical History (Updated 04/18/20 @ 12:36 by Colten Lares DO) Hiatal hernia Nephrolithiasis Portal vein thrombosis -Had initially been seen on CT abdomen and pelvis done on 05/08/2019 during which time he was noted to have acute thrombosis involving the portal vein, superior mesenteric vein and distal mesenteric branches, hepatic steatosis, extensive mesenteric stranding and congestion, early ischemic changes in the left small bowel with no perforation. Patient was then transferred to [facility] in [place] where he was anticoagulated initially with IV heparin and then discharged on 7 days of Lovenox and has since been taking Eliquis. -Review of records obtained from [facility] show normal AFP (3.4), negative hypercoagulability work-up including factor V Leiden mutation though was found to have slightly elevated serum homocysteine at 18. MRI of the abdomen with and without contrast with extensive non-occlusive thrombosis within portal venous tree with involvement of portal venous confluence and branches of superior mesenteric vein, marked fatty liver infiltration, sludge within the gallbladder lumen. Copy of records in paper chart -Unclear etiology as no prior liver pathology and workup relatively unrevealing -Seen by Dr. Gonzales on 06/03 PUD (peptic ulcer disease) Superior mesenteric vein thrombosis -Appears unchanged on imaging -as noted above Surgical History History of esophagogastroduodenoscopy (EGD) Family History Brother Cancer Pancreatic cancer? Social History Smoking and tobacco status: never smoked Alcohol intake: current Alcohol type: hard liquor Marital status: Physical Exam Const: COMMON NORMALS: no acute distress EXAM LIMITATIONS: no altered mental status GENERAL APPEARANCE: cooperative and comfortable ORIENTATION/CONSCIOUSNESS: Yes awake, Yes oriented to person, Yes oriented to place and Yes oriented to time HENMT: COMMON NORMALS: normocephalic, atraumatic and hearing grossly normal bilaterally HEAD & SCALP: normocephalic and atraumatic Eye: COMMON NORMALS: Equal, round and reactive pupils present, EOMs intact bilaterally, conjunctivae normal and no scleral icterus CONJUNCTIVA: Yes conjunctivae normal PUPIL: Yes Equal, round and reactive pupils present Neck/C-Spine: COMMON NORMALS: full ROM, no lymphadenopathy, supple and no JVD Lymph: LYMPHATIC: no lymphadenopathy noted and no lymphedema noted Resp: COMMON NORMALS: normal respiratory effort, No retractions, No use of accessory muscles and clear to auscultation bilaterally AUSCULTATION: clear to auscultation bilaterally Cardio: COMMON NORMALS: no JVD, regular rate, regular rhythm and No murmurs present (Cardio) RATE: regular rate RHYTHM: regular rhythm GI: COMMON NORMALS: No hepatosplenomegaly present AUSCULTATION: Yes normoactive bowel sounds PALPATION: Yes Tenderness to palpation present (GI) Details: LUQ, No Guarding due to palpation present (GI) and Yes No hepatosplenomegaly present Extremity: COMMON NORMALS: normal to inspection, capillary refill normal, no clubbing, cyanosis or edema, no calf tenderness and no pedal edema Neuro: SENSORIUM/ORIENTATION: Yes oriented to person, Yes oriented to place and Yes oriented to time Skin: COMMON NORMALS: no rashes or lesions noted GENERAL SKIN EXAM: no rashes or lesions noted Course Vital Signs: Vital signs: Vital Signs Temperature 98.9 F 04/18/20 10:15 Pulse Rate 80 04/18/20 13:34 Respiratory Rate 16 04/18/20 13:34 Blood Pressure 113/70 04/18/20 13:34 Pulse Oximetry 96 04/18/20 13:34 MDM - Nausea/Vomiting/Diarrhea Lab Data: Labs: Lab Results 04/18/20 04/18/20 04/18/20 Range/Units 10:37 10:37 12:26 WBC 15.3 H (4.0-10.0) 10^3/ uL RBC 4.40 (4.1-5.3) 10^6/u L Hgb 9.6 L (11.7-16.6) g/dL Hct 32.6 L (42.0-52.0) % MCV 74.1 L (80-94) fL MCH 21.8 L (28.0-34.0) pg MCHC 29.4 L (30.0-36.0) g/dL RDW 19.2 H (12.1-15.1) % Plt Count 564 H (130-400) 10^3/c mm MPV 10.9 H (7.4-10.4) fL Neut % (Auto) 78.5 % Lymph % (Auto) 14.3 % [place] % (Auto) 5.8 % Eos % (Auto) 1.0 % Baso % (Auto) 0.1 % Neut # (Auto) 12.01 H (1.8-7.7) 10^3/u L Lymph # (Auto) 2.2 (0.8-4.8) 10^3/u L [place] # (Auto) 0.9 (0.2-0.9) 10^3/u L Eos # (Auto) 0.2 (0.0-0.8) 10^3/u L Baso # (Auto) 0.0 (0.0-0.1) 10^3/u L Nucleated RBC % (a uto) 0 % Nucleated RBCs # 0.0 /100WBC Sodium 135 L (136-145) mmol/L Potassium 3.1 L (3.5-5.1) mmol/L Chloride 99 (98-107) mmol/L Carbon Dioxide 24 (22-29) mmol/L Anion Gap 15.1 (5-19) BUN 8 (6-20) mg/dL Creatinine 0.8 (0.7-1.2) mg/dL GFR Calculation 105.0 (90-130) mL/min Glucose 120 H (65-115) mg/dL Calculated Osmolal ity 280 L (285-295) mOsm/k g Calcium 8.8 (8.5-10.5) mg/dL Total Bilirubin 0.8 (0.15-1.2) mg/dL AST 38 (0-40) U/L ALT 24 (0-41) U/L Alkaline Phosphata se 87 (40-130) IU/L Total Protein 7.2 (6.6-8.7) g/dL Albumin 3.6 (3.5-5.2) g/dL Globulin 3.6 (1.3-4.6) g/dL Lipase 382 H (13-60) U/L Urine Color Dark yellow (Yellow) Urine Appearance Clear (CLEAR) Urine pH 7 (5-7) Ur Specific Gravit y 1.005 (1.005-1.030) Urine Protein 1+ H (Negative) Urine Glucose (UA) Norm (Normal) Urine Ketones 1+ H (Negative) Urine Blood Neg (Negative) Urine Nitrate Negative (Negative) Urine Bilirubin 1+ H (Negative) Urine Urobilinogen 4 H (Negative) mg/dL Ur Leukocyte Elizabeth ase Negative (Negative) Urine RBC None (0-2) /hpf Urine WBC 0-4 H (0-5) /hpf Ur Squamous Epith Cells None (0-5) /hpf Amorphous Sediment Not Reportable Urine Bacteria Trace (NONE) /hpf Discharge Plan Discharge Patient Disposition: Admitted As Inpatient Admit Provider: Alton Catalan Clinical Impression: Acute pancreatitis Condition: Stable Coding Level of Care Code ED Wood Room Supervisor for Chg Fwd Exam Problem Focused
[2020-04-18 11:11] LABS: Basophils % 0.1 %; Eosinophils # 0.2 10^3/uL (0.0-0.8); Hematocrit 32.6 % (42.0-52.0); Hemoglobin 9.6 g/dL (11.7-16.6); Lymphocytes # 2.2 10^3/uL (0.8-4.8); Lymphocytes % 14.3 %; Mean Corpuscular HGB Conc 29.4 g/dL (30.0-36.0); Mean Corpuscular Hemoglobin 21.8 pg (28.0-34.0); Mean Corpuscular Volume 74.1 fL (80-94); Mean Platelet Volume 10.9 fL (7.4-10.4); Monocytes # 0.9 10^3/uL (0.2-0.9); Monocytes % 5.8 %; Neutrophils # 12.01 10^3/uL (1.8-7.7); Neutrophils % 78.5 %; Nucleated Red Blood Cells % 0 %; Platelet Count 564 10^3/cmm (130-400); Red Cell Distribution Width 19.2 % (12.1-15.1); White Blood Count 15.3 10^3/uL (4.0-10.0)
--- NOTE | 2020-04-18 11:18 | CTR_ITS ---
PROCEDURE INFORMATION: Exam: CT Abdomen And Pelvis With Contrast Exam date and time: 04/18/2020 11:20 AM Age: 45 years old Clinical indication: Abdominal pain; Localized; Upper; Additional info: Abd pain TECHNIQUE: Imaging protocol: Computed tomography of the abdomen and pelvis with contrast. Radiation optimization: All CT scans at this facility use at least one of these dose optimization techniques: automated exposure control; mA and/or kV adjustment per patient size (includes targeted exams where dose is matched to clinical indication); or iterative reconstruction. Contrast material: OMNI 300; Contrast volume: 95 ml; Contrast route: INTRAVENOUS (IV); COMPARISON: CT abdomen pelvis w con* [id number] 11/01/2019 4:45 PM RADIATION DOSE METRICS: Total DLP (mGy-cm): 1701.62 FINDINGS: Liver: Diffuse fatty liver. Gallbladder and bile ducts: Normal. No calcified stones. No ductal dilation. Pancreas: There is enlargement of the pancreatic head and uncinate with multiple loculated cystic fluid collections. These have increased in size and number since the previous scan. These are consistent with multiple pseudocysts. The pancreas is poorly marginated and there is infiltration of the peripancreatic fat. There is a small amount of fluid in the retroperitoneum. These findings are consistent with acute pancreatitis. There is mild dilatation of the pancreatic duct. Spleen: Normal. No splenomegaly. Adrenal glands: Normal. No mass. Kidneys and ureters: Small benign cysts are present in the left kidney. There is no hydronephrosis. There is a punctate calcification in the right kidney. Sigmoid diverticulosis. No evidence of acute diverticulitis. Stomach and bowel: See Kidneys and ureters finding. Appendix: No evidence of appendicitis. Intraperitoneal space: Unremarkable. No free air. No significant fluid collection. Vasculature: Unremarkable. No abdominal aortic aneurysm. Lymph nodes: Unremarkable. No enlarged lymph nodes. Urinary bladder: Unremarkable as visualized. Reproductive: Unremarkable as visualized. Bones/joints: Unremarkable. No acute fracture. Soft tissues: Unremarkable. CT/CT abdomen pelvis w con* [id number] IMPRESSION: 1. Acute pancreatitis. The inflammation is less prominent than on the previous scan that was done on 11/01/2019 2. Multiple cysts in the head and uncinate of the pancreas consistent with pseudocyst measuring up to 3 cm in diameter. These have increased in size and number since previous scan. 3. Fatty liver. 4. Sigmoid diverticulosis. COMMENTS: Consistent with the [employer]'s Incidental Findings Committee white paper (J Am Blanca Radiol 2018): Any incidental renal lesion less than 1 cm or classified as too small to characterize, or any incidental cystic renal lesion characterized as simple-appearing, is likely benign. No follow-up imaging is recommended for these lesions per consensus recommendations based on imaging criteria. Radiation Dose CTDIVOL = (mGy): DLP = 1701.62 (mGy-cm)
[2020-04-18] MEDS: iohexol 300 mg/mL 100 mL Btl IV (11:25)
[2020-04-18 11:28] LABS: Alanine Aminotransferase 24 U/L (0-41); Albumin Level 3.6 g/dL (3.5-5.2); Alkaline Phosphatase 87 IU/L (40-130); Anion Gap 15.1 (5-19); Aspartate Amino Transferase 38 U/L (0-40); Blood Urea Nitrogen 8 mg/dL (6-20); Calcium 8.8 mg/dL (8.5-10.5); Carbon Dioxide 24 mmol/L (22-29); Chloride 99 mmol/L (98-107); Globulin 3.6 g/dL (1.3-4.6); Glucose 120 mg/dL (65-115); Osmolality Calculated 280 mOsm/kg (285-295); Potassium 3.1 mmol/L (3.5-5.1); Sodium 135 mmol/L (136-145); Total Bilirubin 0.8 mg/dL (0.15-1.2); Total Protein 7.2 g/dL (6.6-8.7)
[2020-04-18 11:37] LABS: Lipase 382 U/L (13-60)
[2020-04-18] MEDS: promethazine 25 mg/mL SDV 1 mL IM (11:44)
[2020-04-18] MEDS: morphine 4 mg/mL SDV 1 mL IVP ×3 (11:44→19:56)
[2020-04-18 13:29] LABS: Glucose Urine UA Norm (Normal); Protein Urine 1+ (Negative); Specific Gravity, Urine 1.005 (1.005-1.030); Urine Appearance Clear (CLEAR); Urine Color Dark Yellow (Yellow); pH Urine 7 (5-7)
[2020-04-18 13:30] LABS: Add Urine Culture? No; Add Urine Microscopic? YES; Bacteria Urine TRACE /hpf; Bilirubin Urine 1+ (Negative); Blood Urine Neg (Negative); Ketones Urine 1+ (Negative); Leukocyte Esterase Urine Negative (Negative); Nitrate Urine Negative (Negative); Urobilinogen Urine 4 mg/dL (Negative); WBC Urine 0-4 /hpf (0-5)
[2020-04-18] MEDS: sodium chlor 0.9% + KCl 20 mEq 20 MEQ/1,000 ML BAG 150 MEQ IV (13:58)
--- NOTE | 2020-04-18 14:58 | P.HP_ITS ---
Providers/Chief Complaint Admitting Physician: Alton Catalan MD Chief Complaint: ABD PAIN History of Present Illness Devaughn Elkins is a 45 year old male with alcohol use disorder presents with severe abdominal pain mostly involving epigastric and left upper quadrant area with some radiation to the left lower quadrant. Pain started morning and gradually progressed. Patient reports that he was instructed to change diet to mashed potatoes without [id number] and eat Jell-O which patient did without improvement. He had some episodes of relief in his pain but ultimately progressed. He had significant episodes of fever on and Monday up to 102.7. He has been diaphoretic. He has been vomiting for the last couple of days and there was some concern of coffee-ground emesis. No bright red blood in his emesis. He also reports that lately he noticed small black specks in his grossly brown-colored stool. Denies bright red blood per rectum. He has history of pancreatitis and was seen at [facility] in January last year. He had pseudocyst drained at that time but this appears to come jose and now our CT scan showed worsening in size and number of pseudocyst. He was diagnosed with portal vein thrombosis and started on Eliquis. Reports that he was abstinent of alcohol for couple of months but last weekend he had 2 whiskey mixed drinks. He was unable to eat or drink much in the last couple of days and had evidence of dehydration with hyponatremia and hypokalemia. Patient reports that last time he is GI specialist at [facility] was considering to do celiac block. He has an outpatient evaluation with his GI doctor on of this month. Review of Systems Narrative: Except as mentioned in HPI. Const: Reports: fever(s) and chills Eyes: Denies: change in vision ENMT: Denies: throat pain or change in hearing Card: Denies: chest pain, edema or lightheadedness Resp: Denies: dyspnea or productive cough GI: Reports: abdominal pain, nausea, vomiting and melena; Denies: dysphagia, diarrhea, constipation or hematochezia : Denies: difficulty urinating Musc: Denies: joint pain or joint swelling Skin/Breast: Denies: rash or erythema Neuro: Denies: headache(s) or weakness in extremities Psych: Denies: depression Endo: Denies: excessive sweating Arnav/Lymph: Denies: easy bleeding or tender lymph nodes All/Imm: Denies: throat swelling Medications/Allergies Home Medications Medication Instructions Recorded Confirmed Last Taken Type Eliquis 5 mg PO BID@06/11/19 04/18/20 04/18/20 History multivitamin with folic acid 1 tab PO DAILY@04/18/20 04/18/20 04/18/20 History [Thera] Allergies Allergy/AdvReac Type Severity Reaction Status Date / Time ampicillin Allergy Unknown Verified 11/01/19 17:42 Penicillins Allergy Unknown Verified 11/01/19 17:42 PFSH Acute PFSH: Medical History (Updated 04/18/20 @ 15:21 by Alton Catalan MD) Hiatal hernia Nephrolithiasis Portal vein thrombosis -Had initially been seen on CT abdomen and pelvis done on 05/08/2019 during which time he was noted to have acute thrombosis involving the portal vein, superior mesenteric vein and distal mesenteric branches, hepatic steatosis, extensive mesenteric stranding and congestion, early ischemic changes in the left small bowel with no perforation. Patient was then transferred to [facility] in [place] where he was anticoagulated initially with IV heparin and then discharged on 7 days of Lovenox and has since been taking Eliquis. -Review of records obtained from [facility] show normal AFP (3.4), negative hypercoagulability work-up including factor V Leiden mutation though was found to have slightly elevated serum homocysteine at 18. MRI of the abdomen with and without contrast with extensive non-occlusive thrombosis within portal venous tree with involvement of portal venous confluence and branches of superior mesenteric vein, marked fatty liver infiltration, sludge within the gallbladder lumen. Copy of records in paper chart -Unclear etiology as no prior liver pathology and workup relatively unrevealing -Seen by Dr. Gonzales on 06/03 PUD (peptic ulcer disease) Superior mesenteric vein thrombosis -Appears unchanged on imaging -as noted above Surgical History History of esophagogastroduodenoscopy (EGD) Family History Brother Cancer Pancreatic cancer? Social History Smoking and tobacco status: never smoked Alcohol intake: current Alcohol type: hard liquor Marital status: Vitals/I&O/Wt Last Vital Signs Temp 98.9 F 04/18/20 10:15 Pulse 80 04/18/20 13:34 Resp 16 04/18/20 13:34 BP 113/70 04/18/20 13:34 Pulse Ox 96 04/18/20 13:34 Weight last 48 hrs Weight 92.079 kg Physical Exam Const: COMMON NORMALS: no acute distress, patient oriented x3 and alert HENMT: COMMON NORMALS: normocephalic and atraumatic HEAD & SCALP: normocephalic and atraumatic Eye: COMMON NORMALS: EOMs intact bilaterally, conjunctivae normal and no scleral icterus CONJUNCTIVA: Yes conjunctivae normal Neck/C-Spine: COMMON NORMALS: no lymphadenopathy and no meningeal signs Lymph: LYMPHATIC: no lymphadenopathy noted Chest: COMMONS NORMALS: normal palpation of entire chest wall Resp: COMMON NORMALS: No use of accessory muscles and clear to auscultation bilaterally AUSCULTATION: clear to auscultation bilaterally Cardio: COMMON NORMALS: regular rate, regular rhythm and No murmurs present (Cardio) RATE: regular rate RHYTHM: regular rhythm OTHER: No lower extremity edema GI: PALPATION: Yes Soft to palpation RECTAL EXAM: Yes deferred OTHER: Significant tenderness on palpation of mostly epigastric and left upper. Right upper quadrant and left lower quadrant were also tender but not to the same degree.. Right lower quadrant minimally tender. Some guarding was appreciated. : COMMON NORMALS: Yes no CVA tenderness Back/Pelvis: COMMON NORMALS: no CVA tenderness and thoracic and lumbar spine normal to inspection Extremity: COMMON NORMALS: normal to inspection and capillary refill normal Neuro: COMMON NORMALS: patient oriented x3 and no focal motor deficits SENSORIUM/ORIENTATION: Yes alert MENINGEAL SIGNS: Yes no meningeal signs Psych: COMMON NORMALS: mental status grossly normal, Normal thought process present and cooperative THOUGHT PROCESS: Normal thought process present Skin: COMMON NORMALS: no rashes or lesions noted Data : 04/18/20 10:37 04/18/20 10:37 A&P Assessment and plan (1) Acute on chronic pancreatitis: With worsening pseudocysts in size and number and with patient's reported fever highly suspected to be infected pseudocyst Status: Acute (2) Superior mesenteric vein thrombosis: Status: Acute (3) Portal vein thrombosis: Status: Acute (4) Dehydration with hyponatremia: Status: Acute (5) Hypokalemia: Status: Acute (6) Microcytic anemia: Appears to be acute on chronic especially with dropping MCV is concerning for upper GI bleed. Status: Acute (7) Alcohol use disorder: Status: Acute Additional A&P Information PLAN: We will start patient on ciprofloxacin and Flagyl for highly suspected infected pseudocyst. We will give patient extra dose of morphine and Zofran to control his symptoms. Hydrate patient with IV fluids LR at 200 mL/h and replete potassium. Check magnesium and CRP. Hold Eliquis and start patient on high-dose Protonix. Discussed with patient regarding importance of alcohol abstinence. Patient voiced understanding and he thinks he can stop drinking at all. Infected pseudocyst highly suspected therefore I have discussed case with Shannan, GI team as well as hospitalist Dr. Spivey and patient accepted for transfer to [facility] in [place] for further monitoring, evaluation and treatment which may include pseudocyst drainage upper endoscopy/ERCP/EUS. Patient's brother appears to have history of pancreatic cancer. Attestations Medical Necessity Statement*: Patient with acute on chronic pancreatitis with concern for infected pseudocyst as well as upper GI bleed being transferred to [facility] for further monitoring and treatment. Time Spent in Patient Care: Greater than 35 minutes Coding Level of Care Code Acute Angle Shear Set Up Operator for Chg Fwd Diagnoses Acute on chronic pancreatitis K85.90; K86.1 Superior mesenteric vein thrombosis K55.069 Portal vein thrombosis I81 Dehydration with hyponatremia E86.0; E87.1 Hypokalemia E87.6 Microcytic anemia D50.9 Alcohol use disorder
--- NOTE | 2020-04-18 15:29 | ECG_ITS ---
[facility] Test Date: 2020-04-18 Pat Name: Devaughn Elkins Department: Room: 259 Gender: Male Right Of Way Man: : 1975 Requested By: Alton Catalan Order Number: [id number] Constantine MD: Latrice Bejarano M.D. Measurements Intervals Terrell Rate: 72 P: 24 GA: 146 QRS: 42 QRSD: 98 T: 48 QT: 380 QTc: 418 Interpretive Statements SINUS RHYTHM Compared to ECG 08/13/2019 19:54:57 No significant changes Electronically Signed On 04-18-2020 19:44:54 BREWERY WORKER by Latrice Bejarano M.D. [id number]
[2020-04-18] MEDS: ondansetron 2 mg/ML SDV 2 mL 4 MG IVP ×2 (15:49→20:00)
[2020-04-18] MEDS: ciprofloxacin 400 MG/200 ML PREMIX 200 MG IV (15:54)
[2020-04-18] MEDS: lactated ringers 1,000 ML 200 ML IV (15:54)
[2020-04-18] MEDS: pantoprazole DR 40 mg Tablet PO (15:54)
[2020-04-18] MEDS: potassium chloride ER 20 mEq Tablet 40 MEQ PO (15:55)
[2020-04-18 16:07] LABS: C Reactive Protein 76.8 mg/L (0.0-4.9); Magnesium 1.8 mg/dL (1.7-2.3)
[2020-04-18] MEDS: metroNIDAZOLE IV 500 MG/100 ML PREMIX 100 MG IV (17:21)
--- NOTE | 2020-04-18 20:34 | PC.NURSE ---
Patient left with [facility] with all personal belongs. Paper work sent with EMS.
== END 2020-04-18 20:35 | disposition short-term general hospital (02) | DRG 438 ==
LOC: ER 12:52 → MEDSURG 13:16
PROVIDERS: Admitting Provider Internal Medicine; Emergency Provider Family Medicine; Visit Provider Internal Medicine
DX: K85.90 Acute pancreatitis without necrosis or infection, unspecified (principal); I81 Portal vein thrombosis; K86.3 Pseudocyst of pancreas; E87.1 Hypo-osmolality and hyponatremia; K92.2 Gastrointestinal hemorrhage, unspecified; K86.0 Alcohol-induced chronic pancreatitis; E86.0 Dehydration; E87.6 Hypokalemia; K44.9 Diaphragmatic hernia without obstruction or gangrene; Z87.442 Personal history of urinary calculi; K76.0 Fatty (change of) liver, not elsewhere classified; Z87.11 Personal history of peptic ulcer disease; F10.10 Alcohol abuse, uncomplicated; D50.9 Iron deficiency anemia, unspecified; K57.30 Diverticulosis of large intestine without perforation or abscess without bleeding
CPT/HCPCS: 74177; 80053; 81001; 83690; 83735; 85025; 86140; 93005; 96372; 96374; 99285; J0744; J2270; J2405; J2550; Q9967; S0030

== ENCOUNTER 2020-07-01 12:45 | Inpatient (IN) | payer MEDICAID, SELFPAY ==
[2020-07-01] VITALS (11 sets, daily range): BP systolic 112–135; BP diastolic 51–85; PULSE 78–104; RESP 15–24; TEMP 36.9–37.3; O2SAT 97–100; BMI 26.6
[2020-07-01 13:28] LABS: Basophils % 0.2 %; Eosinophils # 0.1 10^3/uL (0.0-0.8); Eosinophils % 0.9 %; Hematocrit 31.2 % (42.0-52.0); Hemoglobin 8.8 g/dL (11.7-16.6); Lymphocytes % 17.3 %; Mean Corpuscular HGB Conc 28.2 g/dL (30.0-36.0); Mean Corpuscular Hemoglobin 20.5 pg (28.0-34.0); Mean Corpuscular Volume 72.7 fL (80-94); Mean Platelet Volume 10.6 fL (7.4-10.4); Monocytes # 1.1 10^3/uL (0.2-0.9); Monocytes % 9.7 %; Neutrophils # 8.11 10^3/uL (1.8-7.7); Neutrophils % 71.5 %; Nucleated Red Blood Cells % 0 %; Platelet Count 390 10^3/cmm (130-400); Red Blood Count 4.29 10^6/uL (4.1-5.3); Red Cell Distribution Width 18.9 % (12.1-15.1); White Blood Count 11.3 10^3/uL (4.0-10.0)
[2020-07-01 13:50] LABS: Alanine Aminotransferase 23 U/L (0-41); Alkaline Phosphatase 92 IU/L (40-130); Anion Gap 11.4 (5-19); Aspartate Amino Transferase 43 U/L (0-40); Blood Urea Nitrogen 9 mg/dL (6-20); Calcium 8.6 mg/dL (8.5-10.5); Carbon Dioxide 24 mmol/L (22-29); Chloride 105 mmol/L (98-107); Globulin 3.4 g/dL (1.3-4.6); Glucose 147 mg/dL (65-115); Osmolality Calculated 285 mOsm/kg (285-295); Potassium 3.4 mmol/L (3.5-5.1); Sodium 137 mmol/L (136-145); Total Bilirubin 0.8 mg/dL (0.15-1.2); Total Protein 7.4 g/dL (6.6-8.7)
[2020-07-01 14:20] LABS: Lipase 1137 U/L (13-60)
--- NOTE | 2020-07-01 14:48 | CTR_ITS ---
PROCEDURE INFORMATION: Exam: CT Abdomen And Pelvis With Contrast Exam date and time: 07/01/2020 2:59 PM Age: 45 years old Clinical indication: Abdominal pain; Generalized; Additional info: Acute pancreatitis, history of pseudocyst TECHNIQUE: Imaging protocol: Computed tomography of the abdomen and pelvis with contrast. Axial, coronal and sagittal reformatted images were created and reviewed. Radiation optimization: All CT scans at this facility use at least one of these dose optimization techniques: automated exposure control; mA and/or kV adjustment per patient size (includes targeted exams where dose is matched to clinical indication); or iterative reconstruction. Contrast material: OMNIPAQUE 300; Contrast volume: 95 ml; Contrast route: INTRAVENOUS (IV); COMPARISON: CT abdomen pelvis w con* [id number] 04/18/2020 11:39 AM RADIATION DOSE METRICS: Total DLP (mGy-cm): 1454.75 FINDINGS: Mediastinal space: Small hiatal hernia. Liver: Mild, diffuse hepatic steatosis. Gallbladder and bile ducts: No radiodense gallstones. No biliary ductal dilatation. Pancreas: Mild to moderate peripancreatic stranding and edema, similar to prior. Multiple complex cystic lesions in the pancreatic head, uncinate process and neck, similar to prior. Mild pancreatic ductal dilatation with questionable pericentimeter cystic lesion in the pancreatic body, also similar to prior. Spleen: Unremarkable. Adrenal glands: Normal. No mass. Kidneys and ureters: 1.7 cm simple left renal cyst. 7 mm low-density left renal lesion, too small to characterize. Punctate nonobstructing right renal calculus. No hydronephrosis. Stomach and bowel: Colonic diverticulosis with questionable subtle pericolonic stranding in the distal descending/proximal sigmoid colon, as well as the mid sigmoid colon. No obstruction. No bowel wall thickening. No pneumatosis. Appendix: Normal. Intraperitoneal space: No free fluid. No organized fluid collection. No free air. Vasculature: Unremarkable. No aneurysm. Lymph nodes: No pathologically enlarged lymph nodes. Urinary bladder: Unremarkable as visualized. Reproductive: Unremarkable. Bones/joints: No acute osseous abnormality. Soft tissues: Unremarkable. CT/CT abdomen pelvis w con* [id number] IMPRESSION: 1. Acute pancreatitis with probable pseudocyst formation, similar to prior. If clinically indicated, MRI may be obtained upon resolution of the patient's acute clinical issues to exclude underlying cystic neoplasm. 2. Cannot exclude mild/early acute diverticulitis, as described above. 3. Additional findings, as above. COMMENTS: Consistent with the [employer]'s Incidental Findings Committee white paper (J Am Blanca Radiol 2018): Any incidental renal lesion less than 1 cm or classified as too small to characterize, or any incidental cystic renal lesion characterized as simple-appearing, is likely benign. No follow-up imaging is recommended for these lesions per consensus recommendations based on imaging criteria. Radiation Dose CTDIVOL = (mGy): DLP = 1454.75 (mGy-cm)
[2020-07-01] MEDS: iohexol 300 mg/mL 100 mL Btl IV (15:00)
[2020-07-01] MEDS: morphine 4 mg/mL SDV 1 mL 8 MG IVP (15:18)
[2020-07-01] MEDS: ondansetron 2 mg/ML SDV 2 mL 4 MG IVP ×2 (15:19→23:57)
[2020-07-01 15:49] LABS: Add Urine Microscopic? YES; Bilirubin Urine 1+ (Negative); Blood Urine Neg (Negative); Glucose Urine UA Norm (Normal); Ketones Urine 1+ (Negative); Leukocyte Esterase Urine Negative (Negative); Nitrate Urine Negative (Negative); Protein Urine Neg (Negative); Urine Appearance Hazy (CLEAR); Urine Color Dark Yellow (Yellow); Urobilinogen Urine 4 mg/dL (Negative); pH Urine 6.5 (5-7)
--- NOTE | 2020-07-01 16:18 | W.ED.ABDPA2 ---
HPI - Abdominal Pain General: Chief Complaint: Abdominal Pain Stated Complaint: ABDOMINAL PAIN/ HX OF PANCREATITIS Time Seen by Provider: 07/01/20 12:49 Source: patient Mode of arrival: EMS Limitations: no limitations History of Present Illness: HPI narrative: Patient is a 45-year-old male with a history of pancreatitis and pancreatic pseudocysts which she has had a drainage for in the past. He presents to the emergency department with abdominal pain of about 1 weeks duration but the pain got much worse earlier this morning. He states that the pain is currently unbearable. He thinks it is a flareup of his pancreatitis as the pain feels identical. He denies any nausea or vomiting, denies any fever. Denies diarrhea. MD elicited complaint: abdominal pain Pertinent past history: other (pancreatitis) Onset (ago): week(s) (1) Pain Consistency: constant Location: Epigastric Severity: severe Quality: stabbing Radiation: none Exacerbating factors: nothing Relieving factors: nothing Associated Symptoms: Denies anorexia, belching, bloating, change in bowel habits, change in stool character, chills, coffee ground emesis, constipation, GI cramping, diarrhea, dyspepsia, dysuria, excessive flatus, fever(s), heartburn, hematochezia, hematuria, hematemesis, fecal incontinence, loose stools, melena, nausea, poor appetite, syncope and vomiting Review of Systems General: Reports: 10 or more systems reviewed and unremarkable except in HPI and below Const: Denies: fever(s) or chills Card: Denies: syncope GI: Denies: nausea, vomiting, hematemesis, coffee ground emesis, heartburn, diarrhea, constipation, bloating, GI cramping, belching, excessive flatus, fecal incontinence, change in bowel habits, change in stool character, hematochezia or melena : Denies: dysuria or hematuria [facility] ED PFSH: Medical History (Updated 07/01/20 @ 22:50 by Contreras Mcpherson MD, [facility]) Hiatal hernia Nephrolithiasis Portal vein thrombosis -Had initially been seen on CT abdomen and pelvis done on 05/08/2019 during which time he was noted to have acute thrombosis involving the portal vein, superior mesenteric vein and distal mesenteric branches, hepatic steatosis, extensive mesenteric stranding and congestion, early ischemic changes in the left small bowel with no perforation. Patient was then transferred to [facility] in [place] where he was anticoagulated initially with IV heparin and then discharged on 7 days of Lovenox and has since been taking Eliquis. -Review of records obtained from [facility] show normal AFP (3.4), negative hypercoagulability work-up including factor V Leiden mutation though was found to have slightly elevated serum homocysteine at 18. MRI of the abdomen with and without contrast with extensive non-occlusive thrombosis within portal venous tree with involvement of portal venous confluence and branches of superior mesenteric vein, marked fatty liver infiltration, sludge within the gallbladder lumen. Copy of records in paper chart -Unclear etiology as no prior liver pathology and workup relatively unrevealing -Seen by Dr. Gonzales on 06/03 PUD (peptic ulcer disease) Superior mesenteric vein thrombosis -Appears unchanged on imaging -as noted above Surgical History (Reviewed 07/01/20 @ 22:30 by Contreras Mcpherson MD, [facility] [place]) History of esophagogastroduodenoscopy (EGD) Family History (Reviewed 07/01/20 @ 22:30 by Contreras Mcpherson MD, [facility] [place]) Brother Cancer Pancreatic cancer? Social History (Reviewed 07/01/20 @ 22:30 by Contreras Mcpherson MD, [facility] [place]) Smoking and tobacco status: never smoked Alcohol intake: current Alcohol type: hard liquor Marital status: Physical Exam Const: COMMON NORMALS: no acute distress, average body habitus, patient oriented x3, no limitations, healthy appearing, alert and well nourished HENMT: COMMON NORMALS: normocephalic, atraumatic and moist oral mucous membranes HEAD & SCALP: normocephalic and atraumatic Neck/C-Spine: COMMON NORMALS: no meningeal signs and no JVD Resp: COMMON NORMALS: normal respiratory effort, No retractions, No use of accessory muscles, clear to auscultation bilaterally and percussion normal AUSCULTATION: clear to auscultation bilaterally PERCUSSION: percussion normal Cardio: COMMON NORMALS: no JVD, regular rate, regular rhythm, S1 normal heart sound present, S2 normal heart sound present, No gallops present (Cardio), No clicks present (Cardio), No murmurs present (Cardio), No rub (Cardio) and Peripheral pulses 2+ throughout RATE: regular rate RHYTHM: regular rhythm HEART SOUNDS: S1 normal heart sound present and S2 normal heart sound present PERIPHERAL PULSES: Peripheral pulses 2+ throughout GI: COMMON NORMALS: Normal to inspection, nondistended, normoactive bowel sounds present, Soft to palpation, No hepatosplenomegaly present, no masses and no bruits PALPATION: Yes Soft to palpation, Yes Tenderness to palpation present (GI) (epigastric), Yes Guarding due to palpation present (GI), No Rigid due to palpation, Yes No hepatosplenomegaly present and No Rebound tenderness present Extremity: COMMON NORMALS: normal to inspection, full ROM, capillary refill normal, no calf tenderness and no pedal edema Neuro: COMMON NORMALS: patient oriented x3 SENSORIUM/ORIENTATION: Yes alert MENINGEAL SIGNS: Yes no meningeal signs Skin: COMMON NORMALS: no rashes or lesions noted, no wounds, turgor normal, no jaundice, no petechiae and no mottling GENERAL SKIN EXAM: no rashes or lesions noted and turgor normal Course ED course: 1627: Called [facility] to discuss with his entry level manufacturing engineer for possible transfer. They will get in touch with the entry level manufacturing engineer and return the call. Reevaluation(s): Time: 16:19 Consultations: Consultation #1: Discussed the patient with Nelia, who is on-call for the gastroenterology service at [facility] in [place]. After discussing the case with her she believes the patient does not need to be transferred and can be managed locally at our facility. If he develops any signs of complication or decompensation he can then be transferred. Time: 16:51 Consultation #2: Discussed the patient mc Rhoades and he kindly accepted patient to his service. Time: 17:23 Vital Signs: Vital signs: Vital Signs Temperature 99.2 F 07/01/20 22:05 Pulse Rate 90 07/01/20 22:05 Respiratory Rate 18 07/01/20 22:05 Blood Pressure 135/51 07/01/20 22:05 Pulse Oximetry 97 07/01/20 22:05 MDM - Abdominal Pain MDM Narrative: Medical decision making narrative: 45-year-old male who presents to the emergency department with abdominal pain. Evaluation in the emergency department is consistent with acute pancreatitis with a possible pseudocyst. No other complications observed on imaging. He is admitted to the hospitalist service for further evaluation and management. I discussed this case with the gastroenterology service at [facility] in [place] which is his entry level manufacturing engineer service and they did not advise transferring him there. Medical Records: Attestation: I reviewed the patient's medical records. Lab Data: Attestation: I reviewed the patient's lab results. Labs: Lab Results 07/01/20 07/01/20 07/01/20 Range/Units 13:21 13:21 15:16 WBC 11.3 H (4.0-10.0) 10^3/ uL RBC 4.29 (4.1-5.3) 10^6/u L Hgb 8.8 L (11.7-16.6) g/dL Hct 31.2 L (42.0-52.0) % MCV 72.7 L (80-94) fL MCH 20.5 L (28.0-34.0) pg MCHC 28.2 L (30.0-36.0) g/dL RDW 18.9 H (12.1-15.1) % Plt Count 390 (130-400) 10^3/c mm MPV 10.6 H (7.4-10.4) fL Neut % (Auto) 71.5 % Lymph % (Auto) 17.3 % [place] % (Auto) 9.7 % Eos % (Auto) 0.9 % Baso % (Auto) 0.2 % Neut # (Auto) 8.11 H (1.8-7.7) 10^3/u L Lymph # (Auto) 2.0 (0.8-4.8) 10^3/u L [place] # (Auto) 1.1 H (0.2-0.9) 10^3/u L Eos # (Auto) 0.1 (0.0-0.8) 10^3/u L Baso # (Auto) 0.0 (0.0-0.1) 10^3/u L Nucleated RBC % (a uto) 0 % Nucleated RBCs # 0.0 /100WBC Sodium 137 (136-145) mmol/L Potassium 3.4 L (3.5-5.1) mmol/L Chloride 105 (98-107) mmol/L Carbon Dioxide 24 (22-29) mmol/L Anion Gap 11.4 (5-19) BUN 9 (6-20) mg/dL Creatinine 0.8 (0.7-1.2) mg/dL GFR Calculation 105.0 (90-130) mL/min Glucose 147 H (65-115) mg/dL Calculated Osmolal ity 285 (285-295) mOsm/k g Calcium 8.6 (8.5-10.5) mg/dL Total Bilirubin 0.8 (0.15-1.2) mg/dL AST 43 H (0-40) U/L ALT 23 (0-41) U/L Alkaline Phosphata se 92 (40-130) IU/L Total Protein 7.4 (6.6-8.7) g/dL Albumin 4.0 (3.5-5.2) g/dL Globulin 3.4 (1.3-4.6) g/dL Lipase 1137 H (13-60) U/L Urine Color Dark yellow (Yellow) Urine Appearance Hazy A (CLEAR) Urine pH 6.5 (5-7) Ur Specific Gravit y 1.010 (1.005-1.030) Urine Protein Neg (Negative) Urine Glucose (UA) Norm (Normal) Urine Ketones 1+ H (Negative) Urine Blood Neg (Negative) Urine Nitrate Negative (Negative) Urine Bilirubin 1+ H (Negative) Urine Urobilinogen 4 H (Negative) mg/dL Ur Leukocyte Elizabeth ase Negative (Negative) Urine RBC 0-4 H (0-2) /hpf Urine WBC None (0-5) /hpf Ur Squamous Epith Cells None (0-5) /hpf Ur Transition Epit h Cell None /hpf Ur Renal Epithelia l Cell N /hpf Amorphous Sediment Not Reportable Urine Bacteria Trace (NONE) /hpf Hyaline Casts 25-40 H /lpf Urine Mucus 3+ /hpf Imaging Data ^: CT Abd/Pel: Attestation: I personally reviewed and interpreted this imaging study as follows: Radiologist's impression: [address] [id number] Scan ReportSigned Patient: Devaughn Elkins #: [id number]: [id number]#:[id number]/Sex: 45 / MADM Date: 07/01/20Loc: ERRoom/Bed:Attending Dr: Ordering Provider/Ordering MD: Contreras Mcpherson MD, [facility] Date of Service: 07/01/20 Procedure(s): CT abdomen pelvis w con* [id number] Accession Number(s): [id number] Report Number: [id number] PROCEDURE INFORMATION: Exam: CT Abdomen And Pelvis With Contrast Exam date and time: 07/01/2020 2:59 PM Age: 45 years old Clinical indication: Abdominal pain; Generalized; Additional info: Acute pancreatitis, history of pseudocyst TECHNIQUE: Imaging protocol: Computed tomography of the abdomen and pelvis with contrast. Axial, coronal and sagittal reformatted images were created and reviewed. Radiation optimization: All CT scans at this facility use at least one of these dose optimization techniques: automated exposure control; mA and/or kV adjustment per patient size (includes targeted exams where dose is matched to clinical indication); or iterative reconstruction. Contrast material: OMNIPAQUE 300; Contrast volume: 95 ml; Contrast route: INTRAVENOUS (IV); COMPARISON: CT abdomen pelvis w con* [id number] 04/18/2020 11:39 AM RADIATION DOSE METRICS: Total DLP (mGy-cm): 1454.75 FINDINGS: Mediastinal space: Small hiatal hernia. Liver: Mild, diffuse hepatic steatosis. Gallbladder and bile ducts: No radiodense gallstones. No biliary ductal dilatation. Pancreas: Mild to moderate peripancreatic stranding and edema, similar to prior. Multiple complex cystic lesions in the pancreatic head, uncinate process and neck, similar to prior. Mild pancreatic ductal dilatation with questionable pericentimeter cystic lesion in the pancreatic body, also similar to prior. Spleen: Unremarkable. Adrenal glands: Normal. No mass. Kidneys and ureters: 1.7 cm simple left renal cyst. 7 mm low-density left renal lesion, too small to characterize. Punctate nonobstructing right renal calculus. No hydronephrosis. Stomach and bowel: Colonic diverticulosis with questionable subtle pericolonic stranding in the distal descending/proximal sigmoid colon, as well as the mid sigmoid colon. No obstruction. No bowel wall thickening. No pneumatosis. Appendix: Normal. Intraperitoneal space: No free fluid. No organized fluid collection. No free air. Vasculature: Unremarkable. No aneurysm. Lymph nodes: No pathologically enlarged lymph nodes. Urinary bladder: Unremarkable as visualized. Reproductive: Unremarkable. Bones/joints: No acute osseous abnormality. Soft tissues: Unremarkable. CT/CT abdomen pelvis w con* [id number] IMPRESSION: 1. Acute pancreatitis with probable pseudocyst formation, similar to prior. If clinically indicated, MRI may be obtained upon resolution of the patient's acute clinical issues to exclude underlying cystic neoplasm. 2. Cannot exclude mild/early acute diverticulitis, as described above. 3. Additional findings, as above. COMMENTS: Consistent with the [employer]'s Incidental Findings Committee white paper (J Am Blanca Radiol 2018): Any incidental renal lesion less than 1 cm or classified as too small to characterize, or any incidental cystic renal lesion characterized as simple-appearing, is likely benign. No follow-up imaging is recommended for these lesions per consensus recommendations based on imaging criteria. Radiation Dose CTDIVOL = (mGy): DLP = 1454.75 (mGy-cm) Dictated By:Javier Velazquez MDSigned By:Javier Velazquez MDSigned Date/Time:07/01/20 1527DD/ 24 Discharge Plan Discharge Patient Disposition: Admitted As Inpatient Admit Provider: Brian Humphries Clinical Impression: Pseudocyst of pancreas Acute pancreatitis Qualifiers: Pancreatitis type: unspecified pancreatitis type Acute pancreatitis complication: no infection or necrosis Qualified Code(s): K85.90 - Acute pancreatitis without necrosis or infection, unspecified Condition: Stable Coding Level of Care Code ED Perfect Binder Feeder Offbearer for Chg Fwd Exam Comprehensive
[2020-07-01 16:27] LABS: Add Urine Culture? No; Bacteria Urine TRACE /hpf; Hyaline Casts Urine 25-40 /lpf; Mucus Urine 3+ /hpf; RBC Urine 0-4 /hpf (0-2); Renal Epithelial Cells Urine N /hpf
[2020-07-01] MEDS: sodium chloride 0.9% 1,000 ML 999 ML IV (16:39)
--- NOTE | 2020-07-01 19:19 | PM.HP ---
Providers/Chief Complaint Chief Complaint: ABDOMINAL PAIN/ HX OF PANCREATITIS History of Present Illness Devaughn Elkins is a 45 year old male with past medical history of pancreatitis presents with abdominal pain for the last one week he reports last drink was 4 days ago, as one drink. denies trauma. states he has not eaten well. denies fevers, or chills he has had pancreatitis in the past His social work nurse was contacted in [place]. Recommended admission Patient also has history of portal vein thrombus. CT abdomen pelvis IMPRESSION: 1. Acute pancreatitis with probable pseudocyst formation, similar to prior. If clinically indicated, MRI may be obtained upon resolution of the patient's acute clinical issues to exclude underlying cystic neoplasm. 2. Cannot exclude mild/early acute diverticulitis, as described above. 3. Additional findings, as above. Review of Systems General: Reports: 10 or more systems reviewed and unremarkable except in HPI and below Const: Reports: body aches; Denies: fever(s) or chills Eyes: Denies: change in vision ENMT: Denies: throat pain Card: Denies: chest pain or palpitations Resp: Denies: dyspnea or productive cough GI: Reports: abdominal pain and nausea; Denies: vomiting : Denies: flank pain or difficulty urinating Musc: Reports: joint pain and joint swelling Skin/Breast: Denies: rash or pruritus Neuro: Denies: headache(s) or numbness in extremities Psych: Denies: anxiety or depression Endo: Denies: polyuria [place]/Lymph: Denies: easy bruising Medications/Allergies Home Medications Medication Instructions Recorded Confirmed Last Taken Type Eliquis 5 mg PO BID@06/11/19 07/01/20 07/01/20 History ondansetron HCl [Zofran] 4 mg PO Q6H PRN 07/01/20 07/01/20 06/30/20 History oxycodone-acetaminophen [Percocet] 1 tab PO Q6H PRN 07/01/20 07/01/20 06/30/20 History Allergies Allergy/AdvReac Type Severity Reaction Status Date / Time ampicillin Allergy Unknown Verified 11/01/19 17:42 Penicillins Allergy Unknown Verified 11/01/19 17:42 PFSH Acute PFSH: Medical History (Updated 04/18/20 @ 15:21 by Alton Catalan MD) Hiatal hernia Nephrolithiasis Portal vein thrombosis -Had initially been seen on CT abdomen and pelvis done on 05/08/2019 during which time he was noted to have acute thrombosis involving the portal vein, superior mesenteric vein and distal mesenteric branches, hepatic steatosis, extensive mesenteric stranding and congestion, early ischemic changes in the left small bowel with no perforation. Patient was then transferred to [facility] in [place] where he was anticoagulated initially with IV heparin and then discharged on 7 days of Lovenox and has since been taking Eliquis. -Review of records obtained from [facility] show normal AFP (3.4), negative hypercoagulability work-up including factor V Leiden mutation though was found to have slightly elevated serum homocysteine at 18. MRI of the abdomen with and without contrast with extensive non-occlusive thrombosis within portal venous tree with involvement of portal venous confluence and branches of superior mesenteric vein, marked fatty liver infiltration, sludge within the gallbladder lumen. Copy of records in paper chart -Unclear etiology as no prior liver pathology and workup relatively unrevealing -Seen by Dr. Gonzales on 06/03 PUD (peptic ulcer disease) Superior mesenteric vein thrombosis -Appears unchanged on imaging -as noted above Surgical History History of esophagogastroduodenoscopy (EGD) Family History Brother Cancer Pancreatic cancer? Social History Smoking and tobacco status: never smoked Alcohol intake: current Alcohol type: hard liquor Marital status: Vitals/I&O/Wt Last Vital Signs Temp 98.8 F 07/01/20 12:51 Pulse 94 07/01/20 18:07 Resp 20 H 07/01/20 18:07 BP 120/83 07/01/20 18:07 Pulse Ox 99 07/01/20 18:07 Weight last 48 hrs Weight 202 lb Physical Exam Const: ORIENTATION/CONSCIOUSNESS: Yes awake, Yes oriented to person, Yes oriented to place and Yes oriented to time Eye: COMMON NORMALS: EOMs intact bilaterally Resp: COMMON NORMALS: normal respiratory effort and No retractions Cardio: COMMON NORMALS: no JVD RATE: tachycardic GI: PALPATION: Yes Tenderness to palpation present (GI) Neuro: COMMON NORMALS: patient oriented x3 and CN's II-XII intact bilaterally Data : 07/01/20 13:21 07/01/20 13:21 A&P Assessment and plan (1) Alcohol use disorder: place on withdral protocol reports low usage Status: Acute (2) Acute on chronic pancreatitis: NPO, IVF, PRN analgesics, serial labs, abx Status: Acute (3) Acute pancreatitis: Status: Acute (4) Microcytic anemia: monitor suspect iron deficency. Will sergio need further work-up including stool studies as well as endoscopy Status: Acute (5) Hypokalemia: replace and recheck Status: Acute Attestations Medical Necessity Statement*: Devaughn Elkins's hospital stay will require greater than 2 midnights for pancreatitis Coding Level of Care Code Acute Ophthalmic Pathologist for g Fwd Diagnoses Alcohol use disorder Acute on chronic pancreatitis K85.90; K86.1 Acute pancreatitis K85.90 Microcytic anemia D50.9 Hypokalemia E87.6
[2020-07-01] MEDS: morphine 4 mg/mL SDV 1 mL IVP (20:16)
[2020-07-01] MEDS: pantoprazole 40 mg SDV IVP (23:57)
[2020-07-01] MEDS: apixaban 5 mg Tablet PO (23:57)
[2020-07-01] MEDS: sodium chloride 0.9% 1,000 ML 100 ML IV (23:58)
[2020-07-01] MEDS: morphine 4 mg/mL SDV 1 mL 2 MG IVP (23:58)
[2020-07-02] VITALS (11 sets, daily range): BP systolic 114–135; BP diastolic 66–88; PULSE 71–90; RESP 16–20; TEMP 36.7–37.1; O2SAT 97–99
[2020-07-02] MEDS: ondansetron 2 mg/ML SDV 2 mL 4 MG IVP ×3 (05:53→22:16)
[2020-07-02] MEDS: morphine 4 mg/mL SDV 1 mL 2 MG IVP ×5 (05:53→22:16)
[2020-07-02 06:42] LABS: Basophils % 0.2 %; Eosinophils # 0.1 10^3/uL (0.0-0.8); Hematocrit 30.1 % (42.0-52.0); Hemoglobin 8.6 g/dL (11.7-16.6); Lymphocytes # 2.5 10^3/uL (0.8-4.8); Lymphocytes % 21.9 %; Mean Corpuscular HGB Conc 28.6 g/dL (30.0-36.0); Mean Corpuscular Hemoglobin 20.7 pg (28.0-34.0); Mean Corpuscular Volume 72.4 fL (80-94); Monocytes # 1.1 10^3/uL (0.2-0.9); Monocytes % 9.3 %; Neutrophils # 7.65 10^3/uL (1.8-7.7); Neutrophils % 67.2 %; Nucleated Red Blood Cells % 0 %; Platelet Count 358 10^3/cmm (130-400); Red Blood Count 4.16 10^6/uL (4.1-5.3); Red Cell Distribution Width 18.8 % (12.1-15.1); White Blood Count 11.4 10^3/uL (4.0-10.0)
[2020-07-02 07:05] LABS: Alanine Aminotransferase 20 U/L (0-41); Albumin Level 3.7 g/dL (3.5-5.2); Alkaline Phosphatase 87 IU/L (40-130); Anion Gap 14.3 (5-19); Aspartate Amino Transferase 28 U/L (0-40); Blood Urea Nitrogen 5 mg/dL (6-20); Calcium 8.1 mg/dL (8.5-10.5); Carbon Dioxide 22 mmol/L (22-29); Chloride 104 mmol/L (98-107); Globulin 2.5 g/dL (1.3-4.6); Glomerular Filtration Rate 146.4 mL/min (90-130); Glucose 103 mg/dL (65-115); Osmolality Calculated 282 mOsm/kg (285-295); Potassium 3.3 mmol/L (3.5-5.1); Sodium 137 mmol/L (136-145); Total Bilirubin 0.9 mg/dL (0.15-1.2); Total Protein 6.2 g/dL (6.6-8.7)
[2020-07-02 07:15] LABS: Lipase 770 U/L (13-60)
[2020-07-02] MEDS: sodium chloride 0.9% 1,000 ML 100 ML IV ×2 (08:22→18:05)
[2020-07-02] MEDS: apixaban 5 mg Tablet PO (09:34)
[2020-07-02 10:16] LABS: Reticulocyte % 1.2 % (0.5-2.0)
[2020-07-02 10:50] LABS: Ferritin 14 ng/mL (30-400); Iron 25 ug/dL (59-158)
[2020-07-02] MEDS: sucralfate 1 gm Tablet PO ×3 (11:30→20:56)
[2020-07-02] MEDS: pantoprazole 40 mg SDV IVP ×3 (11:31→22:16)
[2020-07-02 12:20] LABS: Hematocrit 30.2 % (42.0-52.0); Hemoglobin 8.4 g/dL (11.7-16.6)
--- NOTE | 2020-07-02 13:39 | P.PN_ITS ---
Subjective Subjective: Interval history: Patient reports some dull lower abdominal pain, he is doing better, would like to try ice chips, no fevers, overnight, no bloody or black stools, his last alcohol drink was on Monday, no tremors, no chest pain, no palpitations, no visual auditory hallucinations Vitals/I&O/Wt Last Vital Signs Temp 98.5 F 07/02/20 12:00 Pulse 71 07/02/20 12:00 Resp 17 07/02/20 12:00 BP 114/72 07/02/20 12:00 Pulse Ox 99 07/02/20 12:00 07/01/20 07/02/20 07/02/20 22:59 06:59 14:59 Intake Total 1100 / 1100 100 / 1200 940 / 940 Balance 1100 / 1100 100 / 1200 940 / 940 Weight last 48 hrs Weight 91.626 kg Physical Exam Const: COMMON NORMALS: no acute distress and patient oriented x3 Resp: COMMON NORMALS: normal respiratory effort, No retractions, No use of accessory muscles and clear to auscultation bilaterally AUSCULTATION: clear to auscultation bilaterally Cardio: COMMON NORMALS: regular rate, regular rhythm, S1 normal heart sound present and S2 normal heart sound present RATE: regular rate RHYTHM: regular rhythm HEART SOUNDS: S1 normal heart sound present and S2 normal heart sound present GI: COMMON NORMALS: Normal to inspection, nondistended, normoactive bowel sounds present, non-tender and no bruits PALPATION: Yes Tenderness to palpation present (GI) (Generalized abdominal pain) Extremity: COMMON NORMALS: no pedal edema Neuro: COMMON NORMALS: patient oriented x3 Psych: COMMON NORMALS: mental status grossly normal Data : 07/02/20 12:00 07/02/20 06:09 A&P Assessment and plan (1) Alcohol use disorder: Start ciwa protocol, folic acid, thiamine, monitor withdrawals Status: Acute (2) Acute on chronic pancreatitis: N.p.o. sips and chips ice Continue to monitor abdomen, serial abdominal exams Continue IV hydration Monitor for fevers, worsening abdominal exam, evidence of abscess, pancreatic necrosis Continue Primaxin Morphine for pain control Status: Acute (3) Microcytic anemia: Hemoglobin at 8.4, no reported bloody black stools likely iron deficiency anemia, is on Eliquis, suspect slow GI bleed, Protonix 40 IV daily, Carafate, serial hemoglobins, monitor hemodynamics, switch to heparin drip starting at 9 PM Status: Acute (4) Hypokalemia: replace and recheck Status: Acute (5) Iron deficiency anemia: Status: Acute (6) Pseudocyst of pancreas: History of pseudocyst, monitor by gastroenterology in [place], will hold off on doing an MRCP at this point Status: Acute (7) Portal vein thrombosis: Eliquis will be held, switch to heparin drip Status: Acute (8) Superior mesenteric vein thrombosis: Eliquis will be held, switch to heparin drip Status: Acute Attestations Medical Necessity Statement*: Patient requires hospitalization, inpatient, greater than 2 midnights, for acute on chronic pancreatitis, alcohol abuse, acute anemia Coding Level of Care Code Acute Family Resource Management Specialist for quentin Walls Diagnoses Alcohol use disorder Acute on chronic pancreatitis K85.90; K86.1 Microcytic anemia D50.9 Hypokalemia E87.6 Iron deficiency anemia D50.9 Pseudocyst of pancreas K86.3 Portal vein thrombosis I81 Superior mesenteric vein thrombosis K55.069
[2020-07-02] MEDS: iron sucrose 200 MG in sodium chloride 0.9% (100 ml) 100 ML 220 MG IV (15:57)
[2020-07-02 18:02] LABS: Hematocrit 32.4 % (42.0-52.0); Hemoglobin 9.1 g/dL (11.7-16.6)
[2020-07-02] MEDS: heparin drip 25,000 UNIT/500 ML PREMIX 26 UNIT IV (20:59)
[2020-07-02] MEDS: heparin 5,000 unit/mL INJ 1 mL IV (21:01)
[2020-07-02 21:41] LABS: Partial Thromboplastin Time 39.8 SECONDS (23.9-36.7)
[2020-07-03] VITALS (12 sets, daily range): BP systolic 113–129; BP diastolic 52–81; PULSE 70–88; RESP 16–20; TEMP 36.3–36.9; O2SAT 94–100
[2020-07-03] MEDS: morphine 4 mg/mL SDV 1 mL 2 MG IVP ×2 (02:27→06:24)
[2020-07-03 04:46] LABS: Basophils % 0.1 %; Eosinophils # 0.1 10^3/uL (0.0-0.8); Eosinophils % 1.4 %; Hemoglobin 8.5 g/dL (11.7-16.6); Lymphocytes # 1.7 10^3/uL (0.8-4.8); Lymphocytes % 19.5 %; Mean Corpuscular HGB Conc 28.3 g/dL (30.0-36.0); Mean Corpuscular Hemoglobin 20.5 pg (28.0-34.0); Mean Corpuscular Volume 72.5 fL (80-94); Mean Platelet Volume 10.5 fL (7.4-10.4); Monocytes # 0.9 10^3/uL (0.2-0.9); Monocytes % 9.8 %; Neutrophils # 6.05 10^3/uL (1.8-7.7); Nucleated Red Blood Cells % 0 %; Platelet Count 311 10^3/cmm (130-400); Red Blood Count 4.14 10^6/uL (4.1-5.3); Red Cell Distribution Width 18.5 % (12.1-15.1); White Blood Count 8.8 10^3/uL (4.0-10.0)
[2020-07-03] MEDS: sodium chloride 0.9% 1,000 ML 100 ML IV ×2 (04:50→17:46)
[2020-07-03 05:06] LABS: Alanine Aminotransferase 15 U/L (0-41); Albumin Level 3.5 g/dL (3.5-5.2); Alkaline Phosphatase 77 IU/L (40-130); Aspartate Amino Transferase 25 U/L (0-40); Blood Urea Nitrogen 4 mg/dL (6-20); Calcium 8.2 mg/dL (8.5-10.5); Carbon Dioxide 22 mmol/L (22-29); Chloride 104 mmol/L (98-107); Globulin 2.9 g/dL (1.3-4.6); Glomerular Filtration Rate 146.4 mL/min (90-130); Glucose 104 mg/dL (65-115); Lipase 277 U/L (13-60); Osmolality Calculated 279 mOsm/kg (285-295); Sodium 136 mmol/L (136-145); Total Bilirubin 0.6 mg/dL (0.15-1.2); Total Protein 6.4 g/dL (6.6-8.7)
[2020-07-03 05:12] LABS: Partial Thromboplastin Time 93.8 SECONDS (23.9-36.7)
[2020-07-03 05:17] LABS: Anion Gap 13.4 (5-19); Potassium 3.4 mmol/L (3.5-5.1)
[2020-07-03] MEDS: sucralfate 1 gm Tablet PO ×4 (06:10→21:12)
[2020-07-03] MEDS: ondansetron 2 mg/ML SDV 2 mL 4 MG IVP ×2 (06:24→16:32)
--- NOTE | 2020-07-03 06:33 | PC.NURSE ---
SHIFT SUMMARY Has rested for intervals. Has requested pain med and medicated with IV Morphine X3. Received Zofran X2 for some nausea. Had no emesis. Belching alot and says feels like he has alot of gas. stomach feels bloated Abd is soft with tenderness mostly across upper abdomen but some also in lower abdomen. Says is doing well with the clear liquids and doesn't think it has made him feel any worse. IV fluids infusing at 100ml/hr rate and voiding well per urinal. Had Heparin drip started last pm per protocol. Was decreased after first PTT and is presently at 22ml/hr with next PTT to be drawn at 1115. No score per CIWA and pt tells me he does not drink much
[2020-07-03] MEDS: folic acid 1 mg Tablet PO (08:44)
[2020-07-03] MEDS: multivitamin therapeutic Tablet 1 TAB PO (08:44)
[2020-07-03] MEDS: thiamine 100 mg Tablet PO (08:44)
[2020-07-03] MEDS: pantoprazole 40 mg SDV IVP ×2 (08:46→21:13)
[2020-07-03 10:02] LABS: Hematocrit 30.5 % (42.0-52.0); Hemoglobin 8.8 g/dL (11.7-16.6)
[2020-07-03] MEDS: lidocaine 2% viscous 15 ML, aluminum-mag hydrox-simethicon 30 ML, sucralfate oral liq 1 GM PO (10:42)
[2020-07-03] MEDS: HYDROmorphone 1 mg/mL INJ 1 mL IVP ×3 (11:26→20:25)
[2020-07-03 11:38] LABS: Partial Thromboplastin Time 90.9 SECONDS (23.9-36.7)
--- NOTE | 2020-07-03 11:58 | PM.PN ---
Subjective Subjective: Interval history: Patient was seen this morning, he is tells me that yesterday in the afternoon, he started to develop a lot of nausea, worsening abdominal pain, a lot of acid reflux and gas, he stopped having clear liquids from thereon in, is having some ice chips, still having abdominal pain, not controlled with morphine, no fevers, no chills Vitals/I&O/Wt Last Vital Signs Temp 97.4 F L 07/03/20 11:57 Pulse 84 07/03/20 11:57 Resp 19 H 07/03/20 11:57 BP 119/52 07/03/20 11:57 Pulse Ox 96 07/03/20 11:57 07/02/20 07/03/20 07/03/20 22:59 06:59 14:59 Intake Total 1871.667 / 2911.667 1220 / 4131.667 218 / 218 Output Total 900 / 900 1350 / 2250 400 / 400 Balance 971.667 / 2011.667 -130 / 1881.667 -182 / -182 Weight last 48 hrs Weight 91.626 kg Physical Exam Const: COMMON NORMALS: no acute distress and patient oriented x3 Resp: COMMON NORMALS: normal respiratory effort, No retractions, No use of accessory muscles and clear to auscultation bilaterally AUSCULTATION: clear to auscultation bilaterally Cardio: COMMON NORMALS: regular rate, regular rhythm, S1 normal heart sound present and S2 normal heart sound present RATE: regular rate RHYTHM: regular rhythm HEART SOUNDS: S1 normal heart sound present and S2 normal heart sound present GI: COMMON NORMALS: Normal to inspection, nondistended, normoactive bowel sounds present PALPATION: Yes Tenderness to palpation present (GI) (Generalized tenderness) Extremity: COMMON NORMALS: capillary refill normal, no clubbing, cyanosis or edema, no calf tenderness and no pedal edema Neuro: COMMON NORMALS: patient oriented x3 Psych: COMMON NORMALS: mental status grossly normal Data : 07/03/20 09:53 07/03/20 04:36 A&P Assessment and plan (1) Alcohol use disorder: Start ciwa protocol, folic acid, thiamine, monitor withdrawals Status: Acute (2) Acute on chronic pancreatitis: N.p.o. sips and chips ice Continue to monitor abdomen, serial abdominal exams Continue IV hydration Monitor for fevers, worsening abdominal exam, evidence of abscess, pancreatic necrosis Continue Primaxin Dilaudid for pain, morphine for breakthrough pain Status: Acute (3) Microcytic anemia: Hemoglobin at 8.8, no reported bloody black stools likely iron deficiency anemia, does have a history of peptic ulcer disease diagnosed with EGD more than 10 years ago, was on on Eliquis, suspect slow GI bleed, Protonix 40 IV daily, Carafate, serial hemoglobins, monitor hemodynamics, currently on heparin drip -Was receiving iron for iron deficiency anemia, however he developed worsening abdominal pain after iron infusion so hold for now Status: Acute (4) Hypokalemia: replace and recheck Status: Acute (5) Iron deficiency anemia: Status: Acute (6) Pseudocyst of pancreas: History of pseudocyst, monitor by gastroenterology in [place], will hold off on doing an MRCP at this point Status: Acute (7) Portal vein thrombosis: Eliquis will be held, switch to heparin drip Status: Acute (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
[2020-07-03] MEDS: heparin drip 25,000 UNIT/500 ML PREMIX 18 UNIT IV (16:32)
[2020-07-03 19:05] LABS: Partial Thromboplastin Time 48.2 SECONDS (23.9-36.7)
[2020-07-03] MEDS: heparin 5,000 unit/mL INJ 1 mL IV (19:24)
[2020-07-04] VITALS (8 sets, daily range): BP systolic 110–136; BP diastolic 67–83; PULSE 69–103; RESP 16–18; TEMP 36.1–36.7; O2SAT 95–99
[2020-07-04] MEDS: ondansetron 2 mg/ML SDV 2 mL 4 MG IVP (00:42)
[2020-07-04] MEDS: HYDROmorphone 1 mg/mL INJ 1 mL IVP ×2 (00:46→12:36)
[2020-07-04 02:18] LABS: Partial Thromboplastin Time 67.7 SECONDS (23.9-36.7)
[2020-07-04] MEDS: morphine 4 mg/mL SDV 1 mL 2 MG IVP (04:13)
[2020-07-04] MEDS: sodium chloride 0.9% 1,000 ML 100 ML IV (06:02)
[2020-07-04] MEDS: sucralfate 1 gm Tablet PO (06:02)
[2020-07-04 07:53] LABS: Partial Thromboplastin Time 46.1 SECONDS (23.9-36.7)
[2020-07-04 08:06] LABS: Basophils % 0.3 %; Eosinophils # 0.2 10^3/uL (0.0-0.8); Eosinophils % 2.6 %; Hematocrit 30.2 % (42.0-52.0); Hemoglobin 8.3 g/dL (11.7-16.6); Lymphocytes # 2.5 10^3/uL (0.8-4.8); Lymphocytes % 35.1 %; Mean Corpuscular HGB Conc 27.5 g/dL (30.0-36.0); Mean Corpuscular Hemoglobin 20.9 pg (28.0-34.0); Mean Corpuscular Volume 75.9 fL (80-94); Mean Platelet Volume 11.2 fL (7.4-10.4); Monocytes # 0.8 10^3/uL (0.2-0.9); Monocytes % 11.4 %; Neutrophils # 3.61 10^3/uL (1.8-7.7); Neutrophils % 50.3 %; Nucleated Red Blood Cells % 0 %; Platelet Count 277 10^3/cmm (130-400); Red Blood Count 3.98 10^6/uL (4.1-5.3); Red Cell Distribution Width 19.1 % (12.1-15.1); White Blood Count 7.2 10^3/uL (4.0-10.0)
[2020-07-04 08:21] LABS: Alanine Aminotransferase 16 U/L (0-41); Albumin Level 3.2 g/dL (3.5-5.2); Alkaline Phosphatase 71 IU/L (40-130); Anion Gap 14.5 (5-19); Aspartate Amino Transferase 31 U/L (0-40); Blood Urea Nitrogen 3 mg/dL (6-20); Calcium 8.2 mg/dL (8.5-10.5); Carbon Dioxide 22 mmol/L (22-29); Chloride 107 mmol/L (98-107); Globulin 2.9 g/dL (1.3-4.6); Glomerular Filtration Rate 146.4 mL/min (90-130); Glucose 100 mg/dL (65-115); Lipase 122 U/L (13-60); Magnesium 2.2 mg/dL (1.7-2.3); Osmolality Calculated 287 mOsm/kg (285-295); Phosphorus 2.8 mg/dL (2.5-4.5); Potassium 3.5 mmol/L (3.5-5.1); Sodium 140 mmol/L (136-145); Total Bilirubin 0.4 mg/dL (0.15-1.2); Total Protein 6.1 g/dL (6.6-8.7)
[2020-07-04] MEDS: thiamine 100 mg Tablet PO (08:44)
[2020-07-04] MEDS: multivitamin therapeutic Tablet 1 TAB PO (08:44)
[2020-07-04] MEDS: folic acid 1 mg Tablet PO (08:44)
[2020-07-04] MEDS: heparin 5,000 unit/mL INJ 1 mL IV (08:56)
[2020-07-04] MEDS: pantoprazole 40 mg SDV IVP (09:26)
--- NOTE | 2020-07-04 12:23 | PM.DCS ---
Discharge Providers Date of Admission: 07/01/20 17:35 Date of Discharge: July 04, 2020 Attending Provider at Admission: Brian Humphries MD Attending Provider at Discharge: Joaquin Dan MD Diagnoses at Discharge Discharge Diagnosis (1) Alcohol use disorder: Status: Acute (2) Acute on chronic pancreatitis: Status: Acute (3) Microcytic anemia: Status: Acute (4) Hypokalemia: Status: Acute (5) Iron deficiency anemia: Status: Acute (6) Pseudocyst of pancreas: Status: Acute (7) Portal vein thrombosis: Status: Acute Permanent problem details: -Had initially been seen on CT abdomen and pelvis done on 05/08/2019 during which time he was noted to have acute thrombosis involving the portal vein, superior mesenteric vein and distal mesenteric branches, hepatic steatosis, extensive mesenteric stranding and congestion, early ischemic changes in the left small bowel with no perforation. Patient was then transferred to [facility] in [place] where he was anticoagulated initially with IV heparin and then discharged on 7 days of Lovenox and has since been taking Eliquis. -Review of records obtained from [facility] show normal AFP (3.4), negative hypercoagulability work-up including factor V Leiden mutation though was found to have slightly elevated serum homocysteine at 18. MRI of the abdomen with and without contrast with extensive non-occlusive thrombosis within portal venous tree with involvement of portal venous confluence and branches of superior mesenteric vein, marked fatty liver infiltration, sludge within the gallbladder lumen. Copy of records in paper chart -Unclear etiology as no prior liver pathology and workup relatively unrevealing -Seen by Dr. Gonzales on 06/03 (8) Superior mesenteric vein thrombosis: Status: Acute Permanent problem details: -Appears unchanged on imaging -as noted above Reason for Visit Reason for Visit: ABDOMINAL PAIN/ HX OF PANCREATITIS Hospital Course Hospital Course This is a 45-year-old male with a past medical history of alcohol abuse, recurrent pancreatitis, history of pancreatic cyst, history of portal vein and SMV thrombosis on Eliquis who presents to [facility] due to abdominal pain Patient was admitted to [facility] for acute on chronic pancreatitis, secondary to alcohol use, received IV hydration, pain control, Primaxin for antibiotic coverage, clinical monitoring. Patient clinically improved, remained afebrile, abdominal pain significantly improved, had a bowel movement. Discharged on instructions to slowly advance diet as outpatient from clear liquids to full's to GI soft diet. Discharged on Zofran and Percocet for pain. Patient has a follow-up with his mental health therapist on July 11, 2020, for EGD. Patient was advised to abstain from alcohol consumption For alcohol use disorder, CIWA protocol, he clinically did well, no significant withdrawal, discharged on folic acid, thiamine. During his hospitalization patient developed microcytic anemia, hemoglobin as low as 8.2, no hemodynamic compromise, no reported bloody black stools, lab work-up showed iron deficiency anemia, he does report a history of peptic ulcer disease static diagnosed with EGD over 10 years ago. Patient was transitioned off Eliquis, monitored on a heparin drip, hemoglobin however continued to decline, no hemodynamic compromise, no bloody or black stools. After discussion of the risks and benefits, after stepping the risks, decision was made to discontinue anticoagulation on discharge until patient follows up with his mental health therapist on July 11, 2020, will have a EGD, hopefully they can find a source of bleeding, as I am worried about a recurrent peptic ulcer bleed. Nonetheless I have discharged on Protonix 40 twice daily, Carafate, iron replacement, advised to monitor for bloody or black stools if so go to the emergency room. Physical Exam Const: COMMON NORMALS: no acute distress and patient oriented x3 Resp: COMMON NORMALS: normal respiratory effort, No retractions, No use of accessory muscles and clear to auscultation bilaterally AUSCULTATION: clear to auscultation bilaterally Cardio: COMMON NORMALS: regular rate, regular rhythm, S1 normal heart sound present and S2 normal heart sound present RATE: regular rate RHYTHM: regular rhythm HEART SOUNDS: S1 normal heart sound present and S2 normal heart sound present GI: COMMON NORMALS: Normal to inspection, nondistended, normoactive bowel sounds present, Soft to palpation and non-tender PALPATION: Yes Soft to palpation Extremity: COMMON NORMALS: no pedal edema Neuro: COMMON NORMALS: patient oriented x3 Psych: COMMON NORMALS: mental status grossly normal Discharge Data Data Completed and Pending: Completed Studies During Hospitalization Category Date Time Status CT abdomen pelvis w con* [id number] Stat Cat Scan 07/01/20 14:48 Completed Pending at discharge Category Date Time Status Immunochemical Fe jessica OCB Routine Lab 07/02/20 09:52 Uncollected Lipase AM LABS Lab 07/05/20 04:00 Ordered Magnesium AM LABS Lab 07/05/20 04:00 Ordered Magnesium AM LABS Lab 07/06/20 04:00 Ordered PTT [Partial Thro mboplastin Time] R outine Lab 07/04/20 13:30 Ordered Phosphorus AM LAB S Lab 07/05/20 04:00 Ordered Phosphorus AM LAB S Lab 07/06/20 04:00 Ordered Platelet Count Q2 D Lab 07/06/20 04:00 Ordered Labs from last 24 hours 07/04/20 07/04/20 07/04/20 07:29 07:29 07:29 WBC 7.2 RBC 3.98 L Hgb 8.3 L Hct 30.2 L MCV 75.9 L MCH 20.9 L MCHC 27.5 L RDW 19.1 H Plt Count 277 MPV 11.2 H Neut % (Auto) 50.3 Lymph % (Auto) 35.1 Bailey % (Auto) 11.4 Eos % (Auto) 2.6 Baso % (Auto) 0.3 Neut # (Auto) 3.61 Lymph # (Auto) 2.5 Bailey # (Auto) 0.8 Eos # (Auto) 0.2 Baso # (Auto) 0.0 Nucleated RBC % (a uto) 0 Nucleated RBCs # 0.0 APTT 46.1 H Sodium 140 Potassium 3.5 Chloride 107 Carbon Dioxide 22 Anion Gap 14.5 BUN 3 L Creatinine 0.6 L GFR Calculation 146.4 H Glucose 100 Calculated Osmolal ity 287 Calcium 8.2 L Phosphorus 2.8 Magnesium 2.2 Total Bilirubin 0.4 AST 31 ALT 16 Alkaline Phosphata se 71 Total Protein 6.1 L Albumin 3.2 L Globulin 2.9 Lipase 122 H 07/04/20 07/03/20 01:30 18:25 WBC RBC Hgb Hct MCV MCH MCHC RDW Plt Count MPV Neut % (Auto) Lymph % (Auto) Bailey % (Auto) Eos % (Auto) Baso % (Auto) Neut # (Auto) Lymph # (Auto) Bailey # (Auto) Eos # (Auto) Baso # (Auto) Nucleated RBC % (a uto) Nucleated RBCs # APTT 67.7 H 48.2 H Sodium Potassium Chloride Carbon Dioxide Anion Gap BUN Creatinine GFR Calculation Glucose Calculated Osmolal ity Calcium Phosphorus Magnesium Total Bilirubin AST ALT Alkaline Phosphata se Total Protein Albumin Globulin Lipase Vitals: Last Vital Signs Temp 98.1 F 07/04/20 11:27 Pulse 79 07/04/20 11:27 Resp 18 07/04/20 11:27 BP 122/83 07/04/20 11:27 Pulse Ox 97 07/04/20 11:27 Discharge Plan Discharge Patient Disposition: Home Condition: Stable Prescriptions: New multivitamin with folic acid [Thera] 400 mcg Tablet 1 tab PO DAILY 30 Days Qty: 30 RF: 0 folic acid 1 mg Tablet 1 mg PO DAILY 30 Days Qty: 30 RF: 0 sucralfate 1 gram Tablet 1 g PO AC&BEDTIME 30 Days Qty: 60 RF: 0 thiamine mononitrate (vit B1) [Vitamin B-1 (mononitrate)] 100 mg Tablet 100 mg PO DAILY 30 Days Qty: 30 RF: 0 pantoprazole [Protonix] 40 mg tablet,delayed release (DR/EC) 40 mg PO BID 30 Days Qty: 60 RF: 0 ferrous sulfate 325 mg (65 mg iron) tablet 325 mg PO BID 30 Days Qty: 60 RF: 0 Continued Percocet 10-325 mg Tablet 1 tab PO Q6H PRN (Reason: Pain) 7 Days Qty: 28 RF: 0 Zofran 4 mg Tablet 4 mg PO Q6H PRN (Reason: NAUSEA/VOMITING) 7 Days Qty: 28 RF: 0 Held Eliquis 5 mg Tablet 5 mg PO BID@ RF: 0 Hold Instructions: Resume on 07/11/20. hold until you see GI Discontinued oxycodone-acetaminophen [Percocet] 10-325 mg Tablet 1 tab PO Q6H PRN (Reason: Pain) RF: 0 Discharge Orders: Discharge Order (Routine); Ordered 07/04/20 Ordered By: Joaquin Dan Discharge Diet: As Directed Discharge Activity: Resume usual activity Patient Instructions: Opioid Safety Activity Restrictions/Additional Instructions: -Continue to hold Eliquis until you see your mental health therapist on July 11, 2020 -If you have any bloody or black stools go immediately to the emergency room -Protonix 40 twice daily, with Carafate to protect the GI tract -For iron deficiency please continue ferrous sulfate -On July 11, 2020, your mental health therapist will be doing an EGD, if they have any questions please have him contact me, hopefully they can find the source of your anemia -Slowly advance diet from clear liquids, to full liquids, to GI soft diet Discharge Attestations Time Spent in Discharge Care*: greater than 30 min Status at Discharge: Cognitive status at discharge: cognitively intact, Behavioral status at discharge: cooperative, Quality Metrics Clinical Quality Measures During this hospital stay, did patient experience: None Coding Level of Care Code Acute Chg FW DC note Diagnoses Alcohol use disorder Acute on chronic pancreatitis K85.90; K86.1 Microcytic anemia D50.9 Hypokalemia E87.6 Iron deficiency anemia D50.9 Pseudocyst of pancreas K86.3 Portal vein thrombosis I81 Superior mesenteric vein thrombosis K55.069
--- NOTE | 2020-07-04 13:10 | PC.NURSE ---
Patient's IV's removed at this time. Patient tolerated well. Patient is A&Ox3. Respirations even and non-labored on room air. Reviewed discharge with patient and at bedside. Patient verbalized understanding of discharge instructions and follow up appointments. Patient ambulated to the entrance without difficulty.
== END 2020-07-04 13:10 | disposition home or self-care (01) | DRG 438 ==
LOC: ER 14:26 → MEDSURG 20:13
PROVIDERS: Physician Assistant; Admitting Provider Internal Medicine; Emergency Provider Family Medicine; Visit Provider Family Medicine
DX: K85.20 Alcohol induced acute pancreatitis without necrosis or infection (principal); I81 Portal vein thrombosis; K55.059 Acute (reversible) ischemia of intestine, part and extent unspecified; K86.3 Pseudocyst of pancreas; K86.0 Alcohol-induced chronic pancreatitis; F10.10 Alcohol abuse, uncomplicated; K44.9 Diaphragmatic hernia without obstruction or gangrene; Z87.442 Personal history of urinary calculi; Z87.11 Personal history of peptic ulcer disease; D50.9 Iron deficiency anemia, unspecified; E87.6 Hypokalemia; K76.0 Fatty (change of) liver, not elsewhere classified
CPT/HCPCS: 36415; 74177; 80053; 81001; 82728; 83540; 83690; 83735; 84100; 85014; 85018; 85025; 85045; 85610; 85730; 96365; 96375; 99285; C9113; J0743; J1170; J1644; J1756; J2270; J2405; J3411; J7030; Q9967

== ENCOUNTER 2022-03-16 09:04 | Emergency (ER) | payer MEDICAID, SELFPAY ==
[2022-03-16 09:05] VITALS: BP 117/72; PULSE 84; RESP 18; TEMP 36.6; O2SAT 97; BMI 21.7
--- NOTE | 2022-03-16 09:06 | ECG_ITS ---
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 Measurements Intervals [place] Rate: 71 P: 61 ME: 163 QRS: 95 QRSD: 92 T: 115 QT: 359 QTc: 392 Interpretive Statements SINUS RHYTHM BORDERLINE RIGHT AXIS DEVIATION [QRS AXIS > 90] SEPTAL MYOCARDIAL INFARCTION , OF INDETERMINATE AGE [40+ ms Q WAVE IN V1/V2] LATERAL MYOCARDIAL INFARCTION , OF INDETERMINATE AGE [40+ ms Q WAVE AND/OR ST/T ABNORMALITY IN I/aVL/V5/V6] Compared to ECG 04/18/2020 15:56:01 Myocardial infarct finding now present Electronically Signed On 03-17-2022 0:04:37 POLE PEELING MACHINE OPERATOR by Latrice Bejarano M.D. [id number]
[2022-03-16 09:07] VITALS: BP 118/80; RESP 18; O2SAT 96
[2022-03-16] MEDS: sodium chloride 0.9% 1,000 ML 999 ML IV ×2 (09:21→11:23)
[2022-03-16 09:39] LABS: Basophils % 0.1 %; Hematocrit 39.8 % (42.0-52.0); Hemoglobin 13.3 g/dL (11.7-16.6); Lymphocytes # 2.7 10^3/uL (0.8-4.8); Lymphocytes % 29.2 %; Mean Corpuscular HGB Conc 33.4 g/dL (30.0-36.0); Mean Corpuscular Volume 89.8 fl (80-94); Mean Platelet Volume 11.2 fL (7.4-10.4); Monocytes # 0.9 10^3/uL (0.2-0.9); Monocytes % 9.3 %; Neutrophils # 5.69 10^3/uL (1.8-7.7); Neutrophils % 61.2 %; Nucleated Red Blood Cells % 0 %; Platelet Count 237 10^3/cmm (130-400); Red Blood Count 4.43 10^6/uL (4.1-5.3); Red Cell Distribution Width 12.5 % (12.1-15.1); White Blood Count 9.3 10^3/uL (4.0-10.0)
--- NOTE | 2022-03-16 09:53 | ED_ITS ---
HPI - Abdominal Pain General: Chief Complaint: Abdominal Pain Stated Complaint: abdominal pain Time Seen by Provider: 03/16/22 09:06 Source: patient Mode of arrival: ambulatory History of Present Illness: 46-year-old male presents emergency room complaining of abdominal pain. He has a history of pancreatitis in the past related to alcohol use he states he no longer drinks he is complaining of left upper quadrant abdominal pain. He denies any vomiting or diarrhea. No hematochezia or melena. MD elicited complaint: abdominal pain Pertinent past history: other (Pancreatitis) Onset (ago): day(s) Location: [facility] Severity: moderate Quality: cramping Exacerbating factors: eating Relieving factors: nothing Associated Symptoms: Reports bloating, GI cramping, dyspepsia and nausea; Denies anorexia, belching, change in bowel habits, change in stool character, chills, coffee ground emesis, constipation, diarrhea, dysuria, excessive flatus, fever(s), heartburn, hematochezia, hematuria, hematemesis, fecal incontinence, loose stools, melena, poor appetite, syncope and vomiting Review of Systems Const: Denies: fever(s) or chills ENMT: Denies: throat pain, ear or mastoid pain, nasal discharge or nasal congestion Card: Denies: syncope Resp: Denies: dyspnea, productive cough or non-productive cough GI: Reports: abdominal pain, nausea, bloating and GI cramping; Denies: vomiting, hematemesis, coffee ground emesis, heartburn, diarrhea, constipation, belching, excessive flatus, fecal incontinence, change in bowel habits, change in stool character, hematochezia or melena : Denies: dysuria or hematuria Skin/Breast: Denies: rash or pruritus PFS ED PFSH: Medical History Hiatal hernia Nephrolithiasis Portal vein thrombosis -Had initially been seen on CT abdomen and pelvis done on 05/08/2019 during which time he was noted to have acute thrombosis involving the portal vein, superior mesenteric vein and distal mesenteric branches, hepatic steatosis, extensive mesenteric stranding and congestion, early ischemic changes in the left small bowel with no perforation. Patient was then transferred to [facility] in [place] where he was anticoagulated initially with IV heparin and then discharged on 7 days of Lovenox and has since been taking Eliquis. -Review of records obtained from [facility] show normal AFP (3.4), negative hypercoagulability work-up including factor V Leiden mutation though was found to have slightly elevated serum homocysteine at 18. MRI of the abdomen with and without contrast with extensive non-occlusive thrombosis within portal venous tree with involvement of portal venous confluence and branches of superior mesenteric vein, marked fatty liver infiltration, sludge within the gallbladder lumen. Copy of records in paper chart -Unclear etiology as no prior liver pathology and workup relatively unrevealing -Seen by Dr. Gonzales on 06/03 PUD (peptic ulcer disease) Superior mesenteric vein thrombosis -Appears unchanged on imaging -as noted above Surgical History History of esophagogastroduodenoscopy (EGD) Family History Brother Cancer Pancreatic cancer? Social History Smoking and tobacco status: never smoked Alcohol intake: current Alcohol type: hard liquor Marital status: Physical Exam Const: GENERAL APPEARANCE: cooperative and comfortable ORIENTATION/CONSCI OUSNESS: Yes awake, Yes oriented to person, Yes oriented to place and Yes oriented to time HENMT: COMMON NORMALS: normocephalic, atraumatic and hearing grossly normal bilaterally HEAD & SCALP: normocephalic and atraumatic Resp: COMMON NORMALS: normal respiratory effort, No retractions, No use of accessory muscles and clear to auscultation bilaterally AUSCULTATION: clear to auscultation bilaterally Cardio: COMMON NORMALS: regular rate, regular rhythm and No murmurs present (Cardio) RATE: regular rate RHYTHM: regular rhythm GI: COMMON NORMALS: No hepatosplenomegaly present AUSCULTATION: Yes normoactive bowel sounds PALPATION: Yes Tenderness to palpation present (GI) Details: LLQ, No Guarding due to palpation present (GI) and Yes No hepatosplenomegaly present Extremity: COMMON NORMALS: normal to inspection, capillary refill normal, no clubbing, cyanosis or edema, no calf tenderness and no pedal edema Neuro: SENSORIUM/ORIENTATION: Yes oriented to person, Yes oriented to place and Yes oriented to time Skin: COMMON NORMALS: no rashes or lesions noted GENERAL SKIN EXAM: no rashes or lesions noted Course Vital Signs: Vital signs: Vital Signs Temperature 97.8 F 03/16/22 09:05 Pulse Rate 83 03/16/22 10:07 Respiratory Rate 19 H 03/16/22 10:07 Blood Pressure 115/74 03/16/22 10:07 Pulse Oximetry 97 03/16/22 10:07 Oxygen Delivery Me thod 03/16/22 10:07 MDM - Abdominal Pain Medical Decision Making Lipase essentially unremarkable white count normal CT shows diverticulitis. Discussed with the patient there is no pancreatitis no signs of hernia or any other acute abdominal process beyond his diverticulitis. Started on Cipro and Flagyl. Expect that he probably will have some diarrhea and may even have some mild hematochezia of worsened significantly recheck. Medical Records I reviewed the patient's medical records. Lab Data I reviewed the patient's lab results. 03/16/22 09:20 03/16/22 09:20 Labs/Radiology: Radiology Impressions Abdomen/Pelvis CT 03/16/22 11:05 IMPRESSION: 1. Mild induration about the pancreatic head/neck suspicious for acute pancreatitis. Reactive lymph nodes in the upper abdomen. Recommend correlation pancreatic function studies. 2. Diffuse thickening of the sigmoid colon and with a tiny amount of induration in the LEFT lower quadrant suspicious for mild acute diverticulitis. No drainabl e fluid collections. 3. Evidence of chronic pancreatitis with pancreatic calcifications. Ductal dilatation similar to the prior studies. 4. No obstructing renal or ureteral calculi. No hydronephrosis. 5. Tiny nonobstructing calyceal calculi bilaterally. 6. Pancreatic stent. 7. No other acute findings. Laboratory Results WBC 9.3 10^3/uL (4.0-10.0) 03/16/22 09:20 RBC 4.43 10^6/uL (4.1-5.3) 03/16/22 09:20 Hgb 13.3 g/dL (11.7-16.6) 03/16/22 09:20 Hct 39.8 % (42.0-52.0) L 03/16/22 09:20 MCV 89.8 fl (80-94) 03/16/22 09:20 MCH 30.0 pg (28.0-34.0) 03/16/22 09:20 MCHC 33.4 g/dL (30.0-36.0) 03/16/22 09:20 RDW 12.5 % (12.1-15.1) 03/16/22 09:20 Plt Count 237 10^3/cmm (130-400) 03/16/22 09:20 MPV 11.2 fL (7.4-10.4) H 03/16/22 09:20 Neut % (Auto) 61.2 % 03/16/22 09:20 Lymph % (Auto) 29.2 % 03/16/22 09:20 [place] % (Auto) 9.3 % 03/16/22 09:20 Eos % (Auto) 0.0 % 03/16/22 09:20 Baso % (Auto) 0.1 % 03/16/22 09:20 Neut # (Auto) 5.69 10^3/uL (1.8-7.7) 03/16/22 09:20 Lymph # (Auto) 2.7 10^3/uL (0.8-4.8) 03/16/22 09:20 [place] # (Auto) 0.9 10^3/uL (0.2-0.9) 03/16/22 09:20 Eos # (Auto) 0.0 10^3/uL (0.0-0.8) 03/16/22 09:20 Baso # (Auto) 0.0 10^3/uL (0.0-0.1) 03/16/22 09:20 Nucleated RBC % (auto) 0 % 03/16/22 09:20 Nucleated RBCs # 0.0 /100WBC 03/16/22 09:20 Sodium 139 mmol/L (136-145) 03/16/22 09:20 Potassium 4.0 mmol/L (3.5-5.1) 03/16/22 09:20 Chloride 101 mmol/L (98-107) 03/16/22 09:20 Carbon Dioxide 24 mmol/L (22-29) 03/16/22 09:20 Anion Gap 18.0 (5-19) 03/16/22 09:20 BUN 9 mg/dL (6-20) 03/16/22 09:20 Creatinine 1.0 mg/dL (0.7-1.2) 03/16/22 09:20 GFR Calculation 80.8 mL/min (90-130) L 03/16/22 09:20 Glucose 123 mg/dL (65-115) H 03/16/22 09:20 Calculated Osmolality 288 mOsm/kg (285-295) 03/16/22 09:20 Calcium 9.1 mg/dL (8.5-10.5) 03/16/22 09:20 Total Bilirubin 0.5 mg/dL (0.15-1.2) 03/16/22 09:20 AST 17 U/L (0-40) 03/16/22 09:20 ALT 13 U/L (0-41) 03/16/22 09:20 Alkaline Phosphatase 116 U/L (40-130) 03/16/22 09:20 Total Protein 7.5 g/dL (6.6-8.7) 03/16/22 09:20 Albumin 4.7 g/dL (3.5-5.2) 03/16/22 09:20 Globulin 2.8 g/dL (1.3-4.6) 03/16/22 09:20 Lipase 11 U/L (13-60) L 03/16/22 09:20 Urine Color Yellow (Yellow) 03/16/22 10:15 Urine Appearance Clear (CLEAR) 03/16/22 10:15 Urine pH 5 (5-7) 03/16/22 10:15 Ur Specific [place] 1.020 (1.005-1.030) 03/16/22 10:15 Urine Protein Neg (Negative) 03/16/22 10:15 Urine Glucose (UA) Norm (Normal) 03/16/22 10:15 Urine Ketones Negative (Negative) 03/16/22 10:15 Urine Blood 2+ (Negative) H 03/16/22 10:15 Urine Nitrate Negative (Negative) 03/16/22 10:15 Urine Bilirubin Neg (Negative) 03/16/22 10:15 Urine Urobilinogen Neg mg/dL (Negative) 03/16/22 10:15 Ur Leukocyte Esterase Negative (Negative) 03/16/22 10:15 Urine RBC Rare /hpf (0-2) 03/16/22 10:15 Urine WBC Rare /hpf (0-5) 03/16/22 10:15 Ur Squamous Epith Cells None /hpf (0-5) 03/16/22 10:15 Amorphous Sediment Not Reportable 03/16/22 10:15 Urine Bacteria None /hpf (NONE) 03/16/22 10:15 Discharge Plan Discharge Patient Disposition: Home Clinical Impression: Diverticulitis Condition: Stable Prescriptions: New Cipro 500 mg tablet 500 mg PO BID Qty: 14 0RF ondansetron HCl 4 mg tablet 4 mg PO Q6H PRN (Reason: nausea and vomiting) Qty: 20 0RF No Action Miralax 17 gram Powder In Packet 17 g PO DAILY PRN (Reason: Constipation) Zofran 8 mg Tablet 8 mg PO Q8H PRN (Reason: Nausea) Senna-S 8.6-50 mg Tablet 1 - 2 tab PO BID PRN (Reason: Constipation) prochlorperazine maleate 10 mg tablet 10 mg PO QID PRN (Reason: Nausea) morphine 30 mg tablet extended release 30 mg PO DAILY@20 Cymbalta 60 mg Capsule,Delayed Release(Dr/Ec) 60 mg PO DAILY Creon 12,000-38,000 -60,000 unit capsule,delayed release(DR/EC) See Rx Instructions .ROUTE .COMPLEX Rx Instructions: 3 caps po tid with meals and 1 cap with snack Movantik 25 mg Tablet 25 mg PO QAM Rx Instructions: must be taken on empty stomach; no food 1 hr after or 2-3 hrs before dose Narcan 4 mg/actuation [place],Non-Aerosol 4 mg INTRANASAL Q3M PRN (Reason: overdose) Rx Instructions: spray 1 dose into ONE nostril; alternate nostrils w each dose until help arri ves Percocet 10-325 mg tablet 1 tab PO Q4H MDD 4 tabs PRN (Reason: Pain) Discharge Orders: Discharge ED (Routine); Ordered 03/16/22 Ordered By: Colten Lares Discharge Diet: Advance as tolerated and Full LIquid Discharge Activity: Increase activity as tolerated Patient Instructions: Opioid Safety, Pain Management Activity Restrictions/Additional Instructions: You are seen today for left-sided abdominal pain. You had some blood in your urine your white count was normal your CT shows acute diverticulitis you are given a prescription for ciprofloxacin and metronidazole as well as ondansetron to use as needed for nausea and vomiting. Recommend liquid diet for the next 2 days and advance as tolerated continue to take your other medications as previously prescribed. Coding Level of Care Code ED Sintering Press Operator for Kerwin Walls
[2022-03-16 10:07] VITALS: BP 115/74; PULSE 83; RESP 19; O2SAT 97
[2022-03-16 10:07] LABS: Alanine Aminotransferase 13 U/L (0-41); Albumin Level 4.7 g/dL (3.5-5.2); Alkaline Phosphatase 116 U/L (40-130); Aspartate Amino Transferase 17 U/L (0-40); Blood Urea Nitrogen 9 mg/dL (6-20); Calcium 9.1 mg/dL (8.5-10.5); Carbon Dioxide 24 mmol/L (22-29); Chloride 101 mmol/L (98-107); Creatinine Clr Calc Pharmacy 102.7546; Globulin 2.8 g/dL (1.3-4.6); Glomerular Filtration Rate 80.8 mL/min (90-130); Glucose 123 mg/dL (65-115); Lipase 11 U/L (13-60); Osmolality Calculated 288 mOsm/kg (285-295); Sodium 139 mmol/L (136-145); Total Bilirubin 0.5 mg/dL (0.15-1.2); Total Protein 7.5 g/dL (6.6-8.7)
[2022-03-16] MEDS: ondansetron 2 mg/ML SDV 2 mL 4 MG IVP (10:34)
[2022-03-16 10:57] LABS: Add Urine Microscopic? YES; Bilirubin Urine Neg (Negative); Blood Urine 2+ (Negative); Glucose Urine UA Norm (Normal); Ketones Urine Negative (Negative); Leukocyte Esterase Urine Negative (Negative); Nitrate Urine Negative (Negative); Protein Urine Neg (Negative); Urine Appearance Clear (CLEAR); Urine Color Yellow (Yellow); Urobilinogen Urine Neg (Negative); pH Urine 5 (5-7)
[2022-03-16 10:58] LABS: Add Urine Culture? No; RBC Urine RARE /hpf (0-2); WBC Urine RARE /hpf (0-5)
--- NOTE | 2022-03-16 11:00 | PC.NURSE ---
pt standing in room holding fluid bag stating he wants to leave. physician notified [id number]
--- NOTE | 2022-03-16 11:05 | CT_ITS ---
WS: [id number] CT ABDOMEN PELVIS TECHNIQUE: Noncontrast CT of the abdomen and pelvis with coronal and sagittal reformatted images. CLINICAL INFORMATION: flank pain COMPARISON: CT July 01, 2020 DLP: 523.[address] scans at [facility] use at least one of these dose optimization techniques: automated e xposure control; mA and/or kV adjustment per patient size (includes targeted exams where dose is matc hed to clinical indication); or iterative reconstruction. FINDINGS: Small esophageal hiatal hernia. Diffuse pancreatic calcifications compatible with chronic pancreatiti s. Slight induration involving the pancreatic head and neck suspicious for mild acute pancreatitis. R ecommend correlation with pancreatic enzymes. No drainable fluid collections. A few reactive lymph no fabricio in the upper abdomen. Pancreatic stent new from previous. Sigmoid diverticulosis. Diffuse thickening of the sigmoid colon. Small amount of inflammatory strandi ng and induration in the LEFT lower quadrant sigmoid colon suspicious for mild or early acute diverti culitis. This is best appreciated on the coronal imaging. No drainable fluid collections in the abdom en or pelvis. No obstructing renal or ureteral calculi. No hydronephrosis in either kidney. A few tiny nonobstructi ng calyceal tip calculi LEFT greater than RIGHT. Small LEFT renal cyst measuring 18 mm. Noncontrast liver is normal. Gallbladder is decompressed. Lung bases are well aerated. Adrenal glands are normal. Normal caliber abdominal aorta. Normal appendix in the RIGHT lower quadrant. Tiny fat-containing umbilical hernia. Normal lumbar spin e. CT/CT kidney stone [id number] IMPRESSION: 1. Mild induration about the pancreatic head/neck suspicious for acute pancrea titis. Reactive lymph nodes in the upper abdomen. Recommend correlation pancrea tic function studies. 2. Diffuse thickening of the sigmoid colon and with a tiny amount of induratio n in the LEFT lower quadrant suspicious for mild acute diverticulitis. No drain able fluid collections. 3. Evidence of chronic pancreatitis with pancreatic calcifications. Ductal dil atation similar to the prior studies. 4. No obstructing renal or ureteral calculi. No hydronephrosis. 5. Tiny nonobstructing calyceal calculi bilaterally. 6. Pancreatic stent. 7. No other acute findings.
[2022-03-16] MEDS: ketorolac 30 mg/mL INJ IVP (11:11)
--- NOTE | 2022-03-16 11:19 | PC.NURSE ---
pt refused medication and stated he wanted to leave again. after discussing with physician he agreed to stay for CT.
--- NOTE | 2022-03-16 12:18 | PC.NURSE ---
pt left without informing staff. pt was called and advised to pharmacy picking tech his prescriptions.
== END 2022-03-16 12:21 | disposition home or self-care (01) ==
PROVIDERS: Physician Assistant; Emergency Provider Family Medicine
DX: K57.92 Diverticulitis of intestine, part unspecified, without perforation or abscess without bleeding (principal); Z79.891 Long term (current) use of opiate analgesic
CPT/HCPCS: 74176; 80053; 81001; 83690; 85025; 93005; 96361; 96374; 96375; 99285; J1885; J2405; J7030

== ENCOUNTER 2022-07-05 06:31 | Emergency (ER) | payer OTHER, SELFPAY ==
[2022-07-05 06:53] VITALS: BP 110/81; PULSE 91; RESP 16; TEMP 36.7; O2SAT 97
--- NOTE | 2022-07-05 06:59 | XR_ITS ---
WS: [id number] Exam: XR lumbar spine 2-3V* [id number] Date/Time of Exam: 07/05/2022 7:04 AM Reason For Exam: lbp, right sided Findings: In the AP projection, the lumbar spine is straight. The sacroiliac joints are open. The facet struc tures are bilaterally symmetrical. In the lateral projection, the lumbar curve is well maintained. The intervertebral disc spaces are intact. No fractures or anomalies of the lumbar spine are noted. XR/XR lumbar spine 2-3V* [id number] IMPRESSION: Negative lumbar spine.
--- NOTE | 2022-07-05 07:00 | W.ED.BACK ---
HPI - Back Pain/Injury General: Chief Complaint: Back Pain/Injury Stated Complaint: low back injury Time Seen by Provider: 07/05/22 06:39 History of Present Illness: Patient presents to the ER with complaints of sudden onset right-sided low back pain. 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 Patient denies hearing any pop rip or tear patient is already on chronic narcotics for chronic pancreatitis. MD elicited complaint: back pain and back injury Onset (ago): hour(s) (Prior to arrival) Timing: constant and improved Severity: mild Similar Symptoms Previously: No Quality: aching Location: lumbar spine (Right paraspinal) Radiation: none Exacerbating factors: movement Relieving factors: none Context: while lifting Associated symptoms: Reports no associated symptoms Work related injury: Yes Review of Systems General: Reports: 10 or more systems reviewed and unremarkable except in HPI and below PFSH ED PFSH: Medical History (Updated 07/05/22 @ 08:14 by Juanito Tovar DO) Hiatal hernia Nephrolithiasis Portal vein thrombosis -Had initially been seen on CT abdomen and pelvis done on 05/08/2019 during which time he was noted to have acute thrombosis involving the portal vein, superior mesenteric vein and distal mesenteric branches, hepatic steatosis, extensive mesenteric stranding and congestion, early ischemic changes in the left small bowel with no perforation. Patient was then transferred to [facility] in [place] where he was anticoagulated initially with IV heparin and then discharged on 7 days of Lovenox and has since been taking Eliquis. -Review of records obtained from [facility] show normal AFP (3.4), negative hypercoagulability work-up including factor V Leiden mutation though was found to have slightly elevated serum homocysteine at 18. MRI of the abdomen with and without contrast with extensive non-occlusive thrombosis within portal venous tree with involvement of portal venous confluence and branches of superior mesenteric vein, marked fatty liver infiltration, sludge within the gallbladder lumen. Copy of records in paper chart -Unclear etiology as no prior liver pathology and workup relatively unrevealing -Seen by Dr. Gonzales on 06/03 PUD (peptic ulcer disease) Superior mesenteric vein thrombosis -Appears unchanged on imaging -as noted above Surgical History History of esophagogastroduodenoscopy (EGD) Family History Brother Cancer Pancreatic cancer? Social History Smoking and tobacco status: never smoked Alcohol intake: current Alcohol type: hard liquor Substance/Drug Use: never Marital status: Physical Exam Const: COMMON NORMALS: no acute distress, average body habitus, patient oriented x3, no limitations, healthy appearing, alert and well nourished HENMT: COMMON NORMALS: normocephalic, atraumatic, hearing grossly normal bilaterally, external ears normal, Normal external nose present and moist oral mucous membranes HEAD & SCALP: normocephalic and atraumatic NOSE: Normal external nose present EXTERNAL EAR: Yes external ears normal Eye: COMMON NORMALS: Equal, round and reactive pupils present, EOMs intact bilaterally, conjunctivae normal and no scleral icterus CONJUNCTIVA: Yes conjunctivae normal PUPIL: Yes Equal, round and reactive pupils present Neck/C-Spine: COMMON NORMALS: full ROM, no lymphadenopathy, supple, no meningeal signs, no JVD and Thyroid normal THYROID: Thyroid normal Lymph: LYMPHATIC: no lymphadenopathy noted Chest: COMMONS NORMALS: normal inspection of the chest and normal palpation of entire chest wall Resp: COMMON NORMALS: normal respiratory effort, No retractions, No use of accessory muscles and clear to auscultation bilaterally AUSCULTATION: clear to auscultation bilaterally Cardio: COMMON NORMALS: no JVD, regular rate, regular rhythm, S1 normal heart sound present, S2 normal heart sound present, No gallops present (Cardio), No clicks present (Cardio), No murmurs present (Cardio) and No rub (Cardio) RATE: regular rate RHYTHM: regular rhythm HEART SOUNDS: S1 normal heart sound present and S2 normal heart sound present GI: COMMON NORMALS: Normal to inspection, nondistended, normoactive bowel sounds present, Soft to palpation, non-tender, No hepatosplenomegaly present and no masses PALPATION: Yes Soft to palpation and Yes No hepatosplenomegaly present Back/Pelvis: OTHER: Tender to right paraspinal musculature in the lumbar region. No tenderness over spinous processes in the lumbar region Neuro: COMMON NORMALS: patient oriented x3 SENSORIUM/ORIENTATION: Yes alert MENINGEAL SIGNS: Yes no meningeal signs Course Vital Signs: Vital signs: Vital Signs Temperature 98.0 F 07/05/22 06:53 Pulse Rate 98 07/05/22 07:26 Respiratory Rate 16 07/05/22 06:53 Blood Pressure 109/75 07/05/22 07:26 Pulse Oximetry 96 07/05/22 07:26 Oxygen Delivery Me thod Room Air 07/05/22 06:53 MDM - Back Pain/Injury Medical Decision Making Patient presents to the ER with complaints of sudden onset right-sided back pain when lifting a box at work. His work told him he must come over here to be evaluated. He is on chronic pain medicine for chronic pancreatitis. X-ray was done which was negative. This is thought to be a muscle strain/spasm. Will be discharged home to continue his current chronic pain medicine treatment. He should follow-up within 1 week for his family practice doc as needed. Differential Diagnosis Likely strain of lumbar region; Unlikely lumbar radiculopathy, sciatica, renal colic, pyelonephritis, thoracic back pain, AAA or discitis Medical Records I reviewed the patient's medical records. Labs I reviewed the patient's lab results. Radiology Impressions Lumbar Spine X-Ray 07/05/22 06:59 IMPRESSION: Negative lumbar spine. Discharge Plan Discharge Patient Disposition: Home Clinical Impression: Strain of lumbar region Condition: Stable Prescriptions: No Action Miralax 17 gram Powder In Packet 17 g PO DAILY PRN (Reason: Constipation) Zofran 8 mg Tablet 8 mg PO Q8H PRN (Reason: Nausea) Senna-S 8.6-50 mg Tablet 1 - 2 tab PO BID PRN (Reason: Constipation) prochlorperazine maleate 10 mg tablet 10 mg PO QID PRN (Reason: Nausea) morphine 30 mg tablet extended release 30 mg PO DAILY@20 Cymbalta 60 mg Capsule,Delayed Release(Dr/Ec) 60 mg PO DAILY Creon 12,000-38,000 -60,000 unit capsule,delayed release(DR/EC) See Rx Instructions .ROUTE .COMPLEX Rx Instructions: 3 caps po tid with meals and 1 cap with snack Movantik 25 mg Tablet 25 mg PO QAM Rx Instructions: must be taken on empty stomach; no food 1 hr after or 2-3 hrs before dose Narcan 4 mg/actuation [place],Non-Aerosol 4 mg INTRANASAL Q3M PRN (Reason: overdose) Rx Instructions: spray 1 dose into ONE nostril; alternate nostrils w each dose until help arrives Percocet 10-325 mg tablet 1 tab PO Q4H MDD 4 tabs PRN (Reason: Pain) Cipro 500 mg tablet 500 mg PO BID Qty: 14 0RF ondansetron HCl 4 mg tablet 4 mg PO Q6H PRN (Reason: nausea and vomiting) Qty: 20 0RF Discharge Orders: Discharge ED (Routine); Ordered 07/05/22 Ordered By: Juanito Tovar Referrals: Ken Plascencia [Primary Care Provider] - Patient Instructions: Low Back Strain (ED) Activity Restrictions/Additional Instructions: Please follow-up with your family practice doc as needed, please follow-up with your Workmen's Comp. doc as needed. Coding Level of Care Code ED Tie Tamper for Kerwin Walls
[2022-07-05 07:26] VITALS: BP 109/75; PULSE 98; O2SAT 96
[2022-07-05 08:19] VITALS: BP 109/75; PULSE 104; O2SAT 95
== END 2022-07-05 08:20 | disposition home or self-care (01) ==
PROVIDERS: Emergency Provider Emergency Medicine; PCP Family Medicine
DX: S39.012A Strain of muscle, fascia and tendon of lower back, initial encounter (principal); X50.0XXA Overexertion from strenuous movement or load, initial encounter; Y99.0 Civilian activity done for income or pay
CPT/HCPCS: 72100; 99283

== ENCOUNTER 2022-08-26 16:03 | Emergency (ER) | payer MEDICAID, SELFPAY ==
[2022-08-26 16:07] VITALS: BP 152/82; PULSE 100; RESP 16; TEMP 36.8; O2SAT 98
--- NOTE | 2022-08-26 16:10 | ED_ITS ---
Documented by User: Layton Mclean MD 09/07/22 19:32 HPI - Abdominal Pain General: Chief Complaint: Abdominal Pain Stated Complaint: abd pain Time Seen by Provider: 08/26/22 16:10 History of Present Illness: Mr. Elkins is a 47-year-old gentleman with history of chronic pancreatitis presented the emergency department for abdominal pain. He notes onset of symptoms over the past 5 days. Epigastric and left upper quadrant with subjective fullness and swelling. Denies nausea and vomiting. No changes in bowel movements. He does have a history of chronic pancreatitis secondary to alcohol abuse though reports that symptoms preceded 1 mixed drink that he had yesterday. Intensity is moderate to severe. Unimproved by home medications. No other specific changes in health, exacerbating, or alleviating factors identified. Onset (ago): day(s) Location: Epigastric Exacerbating factors: eating Review of Systems General: Reports: 10 or more systems reviewed and unremarkable except in HPI and below PFSH ED PFSH: Medical History Hiatal hernia Nephrolithiasis Portal vein thrombosis -Had initially been seen on CT abdomen and pelvis done on 05/08/2019 during which time he was noted to have acute thrombosis involving the portal vein, superior mesenteric vein and distal mesenteric branches, hepatic steatosis, extensive mesenteric stranding and congestion, early ischemic changes in the left small bowel with no perforation. Patient was then transferred to [facility] in [place] where he was anticoagulated initially with IV heparin and then discharged on 7 days of Lovenox and has since been taking Eliquis. -Review of records obtained from [facility] show normal AFP (3.4), negative hypercoagulability work-up including factor V Leiden mutation though was found to have slightly elevated serum homocysteine at 18. MRI of the abdomen with and without contrast with extensive non-occlusive thrombosis within portal venous tree with involvement of portal venous confluence and branches of superior mesenteric vein, marked fatty liver infiltration, sludge within the gallbladder lumen. Copy of records in paper chart -Unclear etiology as no prior liver pathology and workup relatively unrevealing -Seen by Dr. Gonzales on 06/03 PUD (peptic ulcer disease) Superior mesenteric vein thrombosis -Appears unchanged on imaging -as noted above Surgical History History of esophagogastroduodenoscopy (EGD) Family History Brother Cancer Pancreatic cancer? Social History Smoking and tobacco status: never smoked Alcohol intake: current Alcohol type: hard liquor Substance/Drug Use: never Marital status: Physical Exam Const: COMMON NORMALS: alert GENERAL APPEARANCE: cooperative and well developed HENMT: COMMON NORMALS: normocephalic and atraumatic HEAD & SCALP: normoc ephalic and atraumatic Eye: COMMON NORMALS: conjunctivae normal CONJUNCTIVA: Yes conjunctivae normal SCLERA: sclerae normal Neck/C-Spine: COMMON NORMALS: supple GENERAL: Yes trachea midline Resp: COMMON NORMALS: normal respiratory effort EFFORT & INSPECTION: Yes able to speak in complete sentences Cardio: COMMON NORMALS: regular rate and regular rhythm RATE: regular rate RHYTHM: regular rhythm GI: COMMON NORMALS: Soft to palpation PALPATION: Yes Soft to palpation, Yes Tenderness to palpation present (GI), No Guarding due to palpation present (GI) and No Rigid due to palpation Extremity: GENERAL: Yes normal exam except as noted and No edema Neuro: COMMON NORMALS: moves all extremities SENSORIUM/ORIENTATION: Yes alert and No Orientation impaired Psych: COMMON NORMALS: mental status grossly normal and Normal thought process present THOUGHT PROCESS: Normal thought process present Course Vital Signs: Vital signs: Vital Signs Temperature 98.2 F 08/26/22 16:07 Pulse Rate 76 08/26/22 19:58 Respiratory Rate 16 08/26/22 19:58 Blood Pressure 121/89 08/26/22 19:58 Pulse Oximetry 97 08/26/22 19:58 MDM - Abdominal Pain Medical Decision Making 47-year-old gentleman with history of pancreatitis presented the emergency department for abdominal pain. Exam as above. Nontoxic. No evidence of acute surgical abdomen. Handed off to Dr. Lares pending completion of ED evaluation for disposition. Care assumed at change of shift. CT shows chronic pancreatitis changes repeat exam patient has no significant tenderness on exam his lipase is not elevated. We will discharge patient home clear liquid diet continue his previous medications follow-up as needed Lab Data 08/26/22 16:21 08/26/22 16:21 Labs/Radiology: Radiology Impressions Abdomen/Pelvis CT 08/26/22 17:30 IMPRESSION: 1. Findings consistent with chronic pancreatitis with a gastropancreatic stent noted. 2. Subtle mesenteric fat stranding of the central mesentery. Findings are nonspecific and could reflect sequela of mesenteric panniculitis. This is located inferior to the pancreas, but can be correlate with lipase levels if there is clinical concern for acute pancreatitis. 3. Prominent varices noted off of branches of the SMV. No evidence of portal vein/SMV thrombosis. 4. A couple punctate nonobstructing stones noted in the left kidney. COMMENTS: Consistent with the [employer]'s Incidental Findings Committee white paper (J Am Blanca Radiol 2018): Any incidental renal lesion less than 1 cm or classified as too small to characterize, or any incidental cystic renal lesion characterized as simple-appearing, is likely benign. No follow-up imaging is recommended for these lesions per consensus recommendations based on imaging criteria. Laboratory Results WBC 8.3 10^3/uL (4.0-10.0) 08/26/22 16:21 RBC 4.14 10^6/uL (4.1-5.3) 08/26/22 16:21 Hgb 12.1 g/dL (11.7-16.6) 08/26/22 16:21 Hct 36.1 % (42.0-52.0) L 08/26/22 16:21 MCV 87.2 fl (80-94) 08/26/22 16:21 MCH 29.2 pg (28.0-34.0) 08/26/22 16:21 MCHC 33.5 g/dL (30.0-36.0) 08/26/22 16:21 RDW 12.8 % (12.1-15.1) 08/26/22 16:21 Plt Count 273 10^3/cmm (130-400) 08/26/22 16:21 MPV 10.3 fL (7.4-10.4) 08/26/22 16:21 Neut % (Auto) 51.9 % 08/26/22 16:21 Lymph % (Auto) 35.9 % 08/26/22 16:21 Luna % (Auto) 8.4 % 08/26/22 16:21 Eos % (Auto) 3.4 % 08/26/22 16:21 Baso % (Auto) 0.2 % 08/26/22 16:21 Neut # (Auto) 4.31 10^3/uL (1.8-7.7) 08/26/22 16:21 Lymph # (Auto) 3.0 10^3/uL (0.8-4.8) 08/26/22 16:21 Luna # (Auto) 0.7 10^3/uL (0.2-0.9) 08/26/22 16:21 Eos # (Auto) 0.3 10^3/uL (0.0-0.8) 08/26/22 16:21 Baso # (Auto) 0.0 10^3/uL (0.0-0.1) 08/26/22 16:21 Nucleated RBC % (auto) 0 % 08/26/22 16:21 Nucleated RBCs # 0.0 /100WBC 08/26/22 16:21 Sodium 141 mmol/L (136-145) 08/26/22 16:21 Potassium 3.5 mmol/L (3.5-5.1) 08/26/22 16:21 Chloride 105 mmol/L (98-107) 08/26/22 16:21 Carbon Dioxide 23 mmol/L (22-29) 08/26/22 16:21 Anion Gap 16.5 (5-19) 08/26/22 16:21 BUN 9 mg/dL (6-20) 08/26/22 16:21 Creatinine 0.9 mg/dL (0.7-1.2) 08/26/22 16:21 GFR Calculation 90.8 mL/min (90-130) 08/26/22 16:21 Glucose 99 mg/dL (65-115) 08/26/22 16:21 Calculated Osmolality 291 mOsm/kg (285-295) 08/26/22 16:21 Lactic Acid 2.5 mmol/L (0.5-2.2) H 08/26/22 16:21 Lactic Acid (Sepsis) 1.0 mmol/L (0.5-2.2) 08/26/22 19:40 Calcium 8.7 mg/dL (8.5-10.5) 08/26/22 16:21 Total Bilirubin 0.2 mg/dL (0.15-1.2) 08/26/22 16:21 AST 10 U/L (0-40) 08/26/22 16:21 ALT 9 U/L (0-41) 08/26/22 16:21 Alkaline Phosphatase 120 U/L (40-130) 08/26/22 16:21 Total Protein 6.4 g/dL (6.6-8.7) L 08/26/22 16:21 Albumin 4.1 g/dL (3.5-5.2) 08/26/22 16:21 Globulin 2.3 g/dL (1.3-4.6) 08/26/22 16:21 Lipase 9 U/L (13-60) L 08/26/22 16:21 Urine Color Yellow (Yellow) 08/26/22 17:10 Urine Appearance Clear (CLEAR) 08/26/22 17:10 Urine pH 6 (5-7) 08/26/22 17:10 Ur Specific [place] 1.015 (1.005-1.030) 08/26/22 17:10 Urine Protein Neg (Negative) 08/26/22 17:10 Urine Glucose (UA) Norm (Normal) 08/26/22 17:10 Urine Ketones Negative (Negative) 08/26/22 17:10 Urine Blood Neg (Negative) 08/26/22 17:10 Urine Nitrate Negative (Negative) 08/26/22 17:10 Urine Bilirubin Neg (Negative) 08/26/22 17:10 Urine Urobilinogen Norm mg/dL (Negative) 08/26/22 17:10 Ur Leukocyte Esterase Negative (Negative) 08/26/22 17:10 Discharge Plan Discharge Patient Disposition: Home Clinical Impression: Chronic pancreatitis Condition: Stable Prescriptions: No Action Miralax 17 gram Powder In Packet 17 g PO DAILY PRN (Reason: Constipation) Zofran 8 mg Tablet 8 mg PO Q8H PRN (Reason: Nausea) Senna-S 8.6-50 mg Tablet 1 - 2 tab PO BID PRN (Reason: Constipation) prochlorperazine maleate 10 mg tablet 10 mg PO QID PRN (Reason: Nausea) morphine 30 mg tablet extended release 30 mg PO DAILY@20 Cymbalta 60 mg Capsule,Delayed Release(Dr/Ec) 60 mg PO DAILY Creon 12,000-38,000 -60,000 unit capsule,delayed release(DR/EC) See Rx Instructions .ROUTE .COMPLEX Rx Instructions: 3 caps po tid with meals and 1 cap with snack Movantik 25 mg Tablet 25 mg PO QAM Rx Instructions: must be taken on empty stomach; no food 1 hr after or 2-3 hrs before dose Narcan 4 mg/actuation Ewing,Non-Aerosol 4 mg INTRANASAL Q3M PRN (Reason: overdose) Rx Instructions: spray 1 dose into ONE nostril; alternate nostrils w each dose until help arrives Percocet 10-325 mg tablet 1 tab PO Q4H MDD 4 tabs PRN (Reason: Pain) Cipro 500 mg tablet 500 mg PO BID Qty: 14 0RF ondansetron HCl 4 mg tablet 4 mg PO Q6H PRN (Reason: nausea and vomiting) Qty: 20 0RF Discharge Orders: Discharge ED (Routine); Ordered 08/26/22 Ordered By: Colten Lares Referrals: Ken Plascencia [Primary Care Provider] - Discharge Diet: Clear Liquid Discharge Activity: Increase activity as tolerated Patient Instructions: Opioid Safety, Pain Management Activity Restrictions/Additional Instructions: You are seen today for abdominal pain. Lipase is normal you have changes of chronic pancreatitis on your CT but does not appear to be acute recommended for next 2 days you follow a clear liquid diet and then advance as tolerated avoid any spicy foods fried foods alcohol fluids carbonated beverages tomato-based products. Follow-up with your primary care doctor. Sign Out Sign Out Data: Patient Sign Out occurred on 08/26/22 at 18:20. Patient's care was discussed, and care was transferred from to Colten Lares DO. Coding Level of Care Code ED Shuttle Fitting Supervisor for Chg Fwd Documented by User: Colten Lares DO 08/26/22 20:25 HPI - Abdominal Pain General: Chief Complaint: Abdominal Pain Stated Complaint: abd pain Time Seen by Provider: 08/26/22 16:10 PFSH ED PFSH: Medical History Hiatal hernia Nephrolithiasis Portal vein thrombosis -Had initially been seen on CT abdomen and pelvis done on 05/08/2019 during which time he was noted to have acute thrombosis involving the portal vein, superior mesenteric vein and distal mesenteric branches, hepatic steatosis, extensive mesenteric stranding and congestion, early ischemic changes in the left small bowel with no perforation. Patient was then transferred to [facility] in [place] where he was anticoagulated initially with IV heparin and then discharged on 7 days of Lovenox and has since been taking Eliquis. -Review of records obtained from [facility] show normal AFP (3.4), negative hypercoagulability work-up including factor V Leiden mutation though was found to have slightly elevated serum homocysteine at 18. MRI of the abdomen with and without contrast with extensive non-occlusive thrombosis within portal venous tree with involvement of portal venous confluence and branches of superior mesenteric vein, marked fatty liver infiltration, sludge within the gallbladder lumen. Copy of records in paper chart -Unclear etiology as no prior liver pathology and workup relatively unrevealing -Seen by Dr. Gonzales on 06/03 PUD (peptic ulcer disease) Superior mesenteric vein thrombosis -Appears unchanged on imaging -as noted above Surgical History History of esophagogastroduodenoscopy (EGD) Family History Brother Cancer Pancreatic cancer? Social History Smoking and tobacco status: never smoked Alcohol intake: current Alcohol type: hard liquor Substance/Drug Use: never Marital status: Course Vital Signs: Vital signs: Vital Signs Temperature 98.2 F 08/26/22 16:07 Pulse Rate 76 08/26/22 19:58 Respiratory Rate 16 08/26/22 19:58 Blood Pressure 121/89 08/26/22 19:58 Pulse Oximetry 97 08/26/22 19:58 MDM - Abdominal Pain Medical Decision Making Care assumed at change of shift. CT shows chronic pancreatitis changes repeat exam patient has no significant tenderness on exam his lipase is not elevated. We will discharge patient home clear liquid diet continue his previous medications follow-up as needed Medical Records I reviewed the patient's medical records. Lab Data I reviewed the patient's lab results. 08/26/22 16:21 08/26/22 16:21 Labs/Radiology: Radiology Impressions Abdomen/Pelvis CT 08/26/22 17:30 IMPRESSION: 1. Findings consistent with chronic pancreatitis with a gastropancreatic stent noted. 2. Subtle mesenteric fat stranding of the central mesentery. Findings are nonspecific and could reflect sequela of mesenteric panniculitis. This is located inferior to the pancreas, but can be correlate with lipase levels if there is clinical concern for acute pancreatitis. 3. Prominent varices noted off of branches of the SMV. No evidence of portal vein/SMV thrombosis. 4. A couple punctate nonobstructing stones noted in the left kidney. COMMENTS: Consistent with the [employer]'s Incidental Findings Committee white paper (J Am Blanca Radiol 2018): Any incidental renal lesion less than 1 cm or classified as too small to characterize, or any incidental cystic renal lesion characterized as simple-appearing, is likely benign. No follow-up imaging is recommended for these lesions per consensus recommendations based on imaging criteria. Laboratory Results WBC 8.3 10^3/uL (4.0-10.0) 08/26/22 16:21 RBC 4.14 10^6/uL (4.1-5.3) 08/26/22 16:21 Hgb 12.1 g/dL (11.7-16.6) 08/26/22 16:21 Hct 36.1 % (42.0-52.0) L 08/26/22 16:21 MCV 87.2 fl (80-94) 08/26/22 16:21 MCH 29.2 pg (28.0-34.0) 08/26/22 16:21 MCHC 33.5 g/dL (30.0-36.0) 08/26/22 16:21 RDW 12.8 % (12.1-15.1) 08/26/22 16:21 Plt Count 273 10^3/cmm (130-400) 08/26/22 16:21 MPV 10.3 fL (7.4-10.4) 08/26/22 16:21 Neut % (Auto) 51.9 % 08/26/22 16:21 Lymph % (Auto) 35.9 % 08/26/22 16:21 Luna % (Auto) 8.4 % 08/26/22 16:21 Eos % (Auto) 3.4 % 08/26/22 16:21 Baso % (Auto) 0.2 % 08/26/22 16:21 Neut # (Auto) 4.31 10^3/uL (1.8-7.7) 08/26/22 16:21 Lymph # (Auto) 3.0 10^3/uL (0.8-4.8) 08/26/22 16:21 Luna # (Auto) 0.7 10^3/uL (0.2-0.9) 08/26/22 16:21 Eos # (Auto) 0.3 10^3/uL (0.0-0.8) 08/26/22 16:21 Baso # (Auto) 0.0 10^3/uL (0.0-0.1) 08/26/22 16:21 Nucleated RBC % (auto) 0 % 08/26/22 16:21 Nucleated RBCs # 0.0 /100WBC 08/26/22 16:21 Sodium 141 mmol/L (136-145) 08/26/22 16:21 Potassium 3.5 mmol/L (3.5-5.1) 08/26/22 16:21 Chloride 105 mmol/L (98-107) 08/26/22 16:21 Carbon Dioxide 23 mmol/L (22-29) 08/26/22 16:21 Anion Gap 16.5 (5-19) 08/26/22 16:21 BUN 9 mg/dL (6-20) 08/26/22 16:21 Creatinine 0.9 mg/dL (0.7-1.2) 08/26/22 16:21 GFR Calculation 90.8 mL/min (90-130) 08/26/22 16:21 Glucose 99 mg/dL (65-115) 08/26/22 16:21 Calculated Osmolality 291 mOsm/kg (285-295) 08/26/22 16:21 Lactic Acid 2.5 mmol/L (0.5-2.2) H 08/26/22 16:21 Lactic Acid (Sepsis) 1.0 mmol/L (0.5-2.2) 08/26/22 19:40 Calcium 8.7 mg/dL (8.5-10.5) 08/26/22 16:21 Total Bilirubin 0.2 mg/dL (0.15-1.2) 08/26/22 16:21 AST 10 U/L (0-40) 08/26/22 16:21 ALT 9 U/L (0-41) 08/26/22 16:21 Alkaline Phosphatase 120 U/L (40-130) 08/26/22 16:21 Total Protein 6.4 g/dL (6.6-8.7) L 08/26/22 16:21 Albumin 4.1 g/dL (3.5-5.2) 08/26/22 16:21 Globulin 2.3 g/dL (1.3-4.6) 08/26/22 16:21 Lipase 9 U/L (13-60) L 08/26/22 16:21 Urine Color Yellow (Yellow) 08/26/22 17:10 Urine Appearance Clear (CLEAR) 08/26/22 17:10 Urine pH 6 (5-7) 08/26/22 17:10 Ur Specific [place] 1.015 (1.005-1.030) 08/26/22 17:10 Urine Protein Neg (Negative) 08/26/22 17:10 Urine Glucose (UA) Norm (Normal) 08/26/22 17:10 Urine Ketones Negative (Negative) 08/26/22 17:10 Urine Blood Neg (Negative) 08/26/22 17:10 Urine Nitrate Negative (Negative) 08/26/22 17:10 Urine Bilirubin Neg (Negative) 08/26/22 17:10 Urine Urobilinogen Norm mg/dL (Negative) 08/26/22 17:10 Ur Leukocyte Esterase Negative (Negative) 08/26/22 17:10 Discharge Plan Discharge Patient Disposition: Home Clinical Impression: Chronic pancreatitis Condition: Stable Prescriptions: No Action Miralax 17 gram Powder In Packet 17 g PO DAILY PRN (Reason: Constipation) Zofran 8 mg Tablet 8 mg PO Q8H PRN (Reason: Nausea) Senna-S 8.6-50 mg Tablet 1 - 2 tab PO BID PRN (Reason: Constipation) prochlorperazine maleate 10 mg tablet 10 mg PO QID PRN (Reason: Nausea) morphine 30 mg tablet extended release 30 mg PO DAILY@20 Cymbalta 60 mg Capsule,Delayed Release(Dr/Ec) 60 mg PO DAILY Creon 12,000-38,000 -60,000 unit capsule,delayed release(DR/EC) See Rx Instructions .ROUTE .COMPLEX Rx Instructions: 3 caps po tid with meals and 1 cap with snack Movantik 25 mg Tablet 25 mg PO QAM Rx Instructions: must be taken on empty stomach; no food 1 hr after or 2-3 hrs before dose Narcan 4 mg/actuation Ewing,Non-Aerosol 4 mg INTRANASAL Q3M PRN (Reason: overdose) Rx Instructions: spray 1 dose into ONE nostril; alternate nostrils w each dose until help arrives Percocet 10-325 mg tablet 1 tab PO Q4H MDD 4 tabs PRN (Reason: Pain) Cipro 500 mg tablet 500 mg PO BID Qty: 14 0RF ondansetron HCl 4 mg tablet 4 mg PO Q6H PRN (Reason: nausea and vomiting) Qty: 20 0RF Discharge Orders: Discharge ED (Routine); Ordered 08/26/22 Ordered By: Colten Lares Referrals: Ken Plascencia [Primary Care Provider] - Discharge Diet: Clear Liquid Discharge Activity: Increase activity as tolerated Patient Instructions: Opioid Safety, Pain Management Activity Restrictions/Additional Instructions: You are seen today for abdominal pain. Lipase is normal you have changes of chronic pancreatitis on your CT but does not appear to be acute recommended for next 2 days you follow a clear liquid diet and then advance as tolerated avoid any spicy foods fried foods alcohol fluids carbonated beverages tomato-based products. Follow-up with your primary care doctor. Sign Out Sign Out Data: Patient Sign Out occurred on 08/26/22 at 18:20. Patient's care was discussed, and care was transferred from to Colten Lares DO. Coding Level of Care Code ED Shuttle Fitting Supervisor for Kerwin Walls
[2022-08-26 16:54] LABS: Basophils % 0.2 %; Eosinophils # 0.3 10^3/uL (0.0-0.8); Eosinophils % 3.4 %; Hematocrit 36.1 % (42.0-52.0); Hemoglobin 12.1 g/dL (11.7-16.6); Lymphocytes % 35.9 %; Mean Corpuscular HGB Conc 33.5 g/dL (30.0-36.0); Mean Corpuscular Hemoglobin 29.2 pg (28.0-34.0); Mean Corpuscular Volume 87.2 fl (80-94); Mean Platelet Volume 10.3 fL (7.4-10.4); Monocytes # 0.7 10^3/uL (0.2-0.9); Monocytes % 8.4 %; Neutrophils # 4.31 10^3/uL (1.8-7.7); Neutrophils % 51.9 %; Nucleated Red Blood Cells % 0 %; Platelet Count 273 10^3/cmm (130-400); Red Blood Count 4.14 10^6/uL (4.1-5.3); Red Cell Distribution Width 12.8 % (12.1-15.1); White Blood Count 8.3 10^3/uL (4.0-10.0)
[2022-08-26 16:56] VITALS: RESP 16
[2022-08-26] MEDS: HYDROmorphone 1 mg/mL INJ 1 mL 0.5 MG IVP (16:56)
[2022-08-26] MEDS: lactated ringers 1,000 ML 999 ML IV (16:56)
[2022-08-26] MEDS: ondansetron 2 mg/ML SDV 2 mL 4 MG IVP (16:56)
[2022-08-26 17:00] VITALS: BP 145/78; PULSE 88; RESP 16; O2SAT 97
[2022-08-26 17:15] LABS: Add Urine Microscopic? NO; Charge for UA Resulting for Rev
[2022-08-26 17:22] LABS: Bilirubin Urine Neg (Negative); Blood Urine Neg (Negative); Glucose Urine UA Norm (Normal); Ketones Urine Negative (Negative); Leukocyte Esterase Urine Negative (Negative); Nitrate Urine Negative (Negative); Protein Urine Neg (Negative); Specific Gravity, Urine 1.015 (1.005-1.030); Urine Appearance Clear (CLEAR); Urine Color Yellow (Yellow); Urobilinogen Urine Norm (Negative); pH Urine 6 (5-7)
[2022-08-26 17:28] LABS: Lactic Sepsis W/Reflex 2.5 mmol/L (0.5-2.2)
[2022-08-26 17:30] LABS: Alanine Aminotransferase 9 U/L (0-41); Albumin Level 4.1 g/dL (3.5-5.2); Alkaline Phosphatase 120 U/L (40-130); Anion Gap 16.5 (5-19); Aspartate Amino Transferase 10 U/L (0-40); Blood Urea Nitrogen 9 mg/dL (6-20); Calcium 8.7 mg/dL (8.5-10.5); Carbon Dioxide 23 mmol/L (22-29); Chloride 105 mmol/L (98-107); Globulin 2.3 g/dL (1.3-4.6); Glomerular Filtration Rate 90.8 mL/min (90-130); Glucose 99 mg/dL (65-115); Lipase 9 U/L (13-60); Osmolality Calculated 291 mOsm/kg (285-295); Potassium 3.5 mmol/L (3.5-5.1); Sodium 141 mmol/L (136-145); Total Bilirubin 0.2 mg/dL (0.15-1.2); Total Protein 6.4 g/dL (6.6-8.7)
--- NOTE | 2022-08-26 17:30 | CTR_ITS ---
PROCEDURE INFORMATION: Exam: CT Abdomen And Pelvis With Contrast Exam date and time: 08/26/2022 6:18 PM Age: 47 years old Clinical indication: Abdominal pain; Prior surgery; Surgery date: 6+ months; Patient HX: Epigastric pain with nausea. Pancreatic stent in place. History of superior mesenteric and portal vein thrombosis. TECHNIQUE: Imaging protocol: Computed tomography of the abdomen and pelvis with contrast. Radiation optimization: All CT scans at this facility use at least one of these dose optimization techniques: automated exposure control; mA and/or kV adjustment per patient size (includes targeted exams where dose is matched to clinical indication); or iterative reconstruction. Contrast material: OMNI 350; Contrast volume: 100 ml; Contrast route: INTRAVENOUS (IV); REPORTING DATA: Count of CT and Cardiac NM exams in prior 12 months: This patient has received [address] and 0 known cardiac nuclear medicine studies in the 12 months prior to the current study. COMPARISON: CT kidney stone [id number] 03/16/2022 11:15 AM RADIATION DOSE METRICS: Total DLP (mGy-cm): 694.04 FINDINGS: Liver: Normal. No mass. Gallbladder and bile ducts: Normal. No calcified stones. No ductal dilation. Pancreas: Gastropancreatic stent noted. Mild dilation of the pancreatic duct up to 5 mm within the body and tail. Multiple punctate calcifications noted within the pancreas pancreatic atrophy. Findings are consistent with sequela of chronic pancreatitis. Spleen: Normal. No splenomegaly. Adrenal glands: Normal. No mass. Kidneys and ureters: Simple cysts noted within the left kidney measuring up to 2.5 cm in size. A couple punctate nonobstructing stones noted in the left kidney. No hydronephrosis. Stomach and bowel: Colonic diverticulosis. No obstruction. No mucosal thickening. Appendix: No evidence of appendicitis. Intraperitoneal space: Subtle mesenteric fat stranding within the central mesentery. No free air. No significant fluid collection. Vasculature: Prominent varices noted off of branches of the SMV. No evidence of portal vein thrombosis. No abdominal aortic aneurysm. Lymph nodes: Mildly prominent mesenteric lymph nodes noted, likely reactive. Urinary bladder: Unremarkable as visualized. Reproductive: Unremarkable as visualized. Bones/joints: No acute fracture. Soft tissues: Unremarkable. CT/CT abdomen pelvis w con* [id number] IMPRESSION: 1. Findings consistent with chronic pancreatitis with a gastropancreatic stent noted. 2. Subtle mesenteric fat stranding of the central mesentery. Findings are nonspecific and could reflect sequela of mesenteric panniculitis. This is located inferior to the pancreas, but can be correlate with lipase levels if there is clinical concern for acute pancreatitis. 3. Prominent varices noted off of branches of the SMV. No evidence of portal vein/SMV thrombosis. 4. A couple punctate nonobstructing stones noted in the left kidney. COMMENTS: Consistent with the [employer]'s Incidental Findings Committee white paper (J Am Blanca Radiol 2018): Any incidental renal lesion less than 1 cm or classified as too small to characterize, or any incidental cystic renal lesion characterized as simple-appearing, is likely benign. No follow-up imaging is recommended for these lesions per consensus recommendations based on imaging criteria.
[2022-08-26] MEDS: iohexol 350 mg/mL 500 mL Btl (per mL) IV (18:18)
[2022-08-26 18:31] VITALS: BP 135/88; PULSE 93; RESP 16; O2SAT 98
[2022-08-26] MEDS: aluminum-mag hydrox-simethicon 30 ML, sucralfate oral liq 1 GM PO (18:32)
[2022-08-26 18:35] LABS: Reflex Lactate Order REFLEX LACTIC ORDERD
[2022-08-26 19:58] VITALS: BP 121/89; PULSE 76; RESP 16; O2SAT 97
== END 2022-08-26 19:59 | disposition home or self-care (01) ==
PROVIDERS: Emergency Medicine; Emergency Provider Family Medicine; PCP Family Medicine
DX: K86.1 Other chronic pancreatitis (principal)
CPT/HCPCS: 36415; 74177; 80053; 81003; 83605; 83690; 85025; 96361; 96374; 96375; 99285; J1170; J2405; J7120; Q9967